=== PATIENT | female | born 1965 | race Caucasian/White ===

== ENCOUNTER 2016-12-06 00:01 | Emergency (ER) | payer OTHER ==
[~2016-12-06] VITALS: Ht 162.6 cm; Wt 92.8 kg
[~2016-12-06 00:01] MED LIST: CYAN10004 PO; DOCU100C31 PO; FERR325T51 PO; GLIP5TAB3 PO; LEVO200T PO; LISI5TAB PO; METF1000 PO; METR1GEL3 TOP; VALA500T60 PO
[2016-12-06 00:08] VITALS: Ht 162.6 cm; Wt 92.8 kg
--- NOTE | 2016-12-06 00:34 | EMERGENCY ROOM VISIT NOTE ---
History Report prepared by Alicia: Saumya Moses Under the Supervision of: Dr. Lei Gaspar D.O. First contact with patient: 00:14 Chief Complaint: ILLNESS Stated Complaint: LIGHT HEAD,UPPER BACK PAIN,SOB,ARM PAIN History of Present Illness The patient is a 51 year old female who presents to the Emergency Room with complaints of intermittent chest pain for the past two days. Yesterday her pain felt like a pressure in her chest. Today her pain has moved into her midback and radiates up to her shoulders and neck. She states, "It feels like something is just sitting there on my shoulders." She is currently experiencing this pain in her back and rates it as a 5/10 in severity. The patient also reports shortness of breath that is worse with bending over or exertion. She notes lightheadedness and right arm pain. She has never experienced symptoms like this before. She denies any personal history of DE. She had a stress test about 2 years ago that was normal. The patient travels to [place] once a month and last made this trip on 11/27/16. Source of History: patient Onset: 2 days ago Position: chest Symptom Intensity: 5/10 Quality: pressure Timing: intermittent Modifying Factors (Worsening): exertion, other (bending over) Associated Symptoms: + SOB, + back pain, + neck pain Note: Pt notes lightheadedness and right arm pain. Review of Systems See HPI for pertinent positives & negatives. A total of 10 systems reviewed and were otherwise negative. Past Medical & Surgical Medical Problems: (1) Diabetes (2) Hypertension Surgical Problems: (1) History of delivery (2) History of thyroidectomy Family History Diabetes mellitus Heart disease Hypertension Seizures Social History Smoking Status: Current Every Day Smoker Alcohol Use: none Marital Status: single Housing Status: lives alone Occupation Status: employed Current/Historical Medications Scheduled Aspirin (Aspirin Ec), 81 MG PO DAILY Glipizide (Glucotrol), 10 MG PO DAILY Levothyroxine Sodium (Synthroid), 200 MCG PO DAILY Lisinopril (Prinivil), 10 MG PO DAILY Metformin Hcl (Glucophage), 1,000 MG PO BIDM Triamcinolone Acet (Triamcinolone Acetonide), 1 APPLN TOP 3XWK Allergies Coded Allergies: No Known Allergies (Unverified , 12/06/16) Physical Exam Vital Signs Date Time Temp Pulse Resp B/P Pulse Ox O2 Delivery O2 Flow Rate FiO2 12/06/16 03:37 36.5 65 16 157/69 98 12/06/16 03:09 65 16 157/69 98 Room Air 12/06/16 01:14 66 16 140/75 98 Room Air 12/06/16 00:38 72 12/06/16 00:08 36.5 82 20 174/62 100 Room Air Physical Exam GENERAL: Patient is awake, alert, and in no acute distress. Patient is resting comfortably and showing no signs of anxiety EYES: The conjunctivae are clear. The pupils are round and reactive. EARS, NOSE, MOUTH AND THROAT: The nose is without any evidence of any deformity. Mucous membranes are moist tongue is midline NECK: The neck is nontender and supple. RESPIRATORY: Normal respiratory effort is noted there is no evidence of wheezing rhonchi or rales CARDIOVASCULAR: Regular rate and rhythm noted there no murmurs rubs or gallops normal S1 normal S2 GASTROINTESTINAL: The abdomen is mildly distended but soft. Bowel sounds are present in all quadrants. No specific guarding or rigidity appreciated. MUSCULOSKELETAL/EXTREMITIES: There is no evidence of gross deformity full range of motion is noted in the hips and shoulders SKIN: There is no obvious evidence of any rash. There are no petechiae, pallor or cyanosis noted. NEUROLOGIC: Patient is awake alert and oriented x3 Medical Decision & Procedures ER Provider Diagnostic Interpretation: Chest x-ray as interpreted by myself reveals cardiomegaly, no free air, no acute disease, no change from 06/29/15. CT angiography of the chest and abdomen was obtained for dissection study. The report was reviewed. Preliminary Findings Only See Final Report For Complete Findings CTA CHEST: No evidence of an embolus. No thoracic aortic dissection or aneurysm. No pericolonic abnormality suggestive suggestive of inflammatory/infectious process. Multiple pulmonary nodules seen throughout both lungs, largest within the right middle lobe measuring up to 6 mm (5-34). Correlation with prior imaging to demonstrate stability, otherwise follow-up according to Fleischner Society criteria is recommended. No pleural effusion or pneumothorax. No significant adenopathy. The heart and pericardium are unremarkable. No acute osseous abnormality. CTA ABDOMEN & PELVIS: No thoracic aortic dissection or aneurysm. The liver, gallbladder, spleen, pancreas, and adrenal glands are unremarkable. The kidneys, ureters and urinary bladder are unremarkable. The uterus and adnexa are unremarkable. The appendix is unremarkable. Noninflamed colonic diverticulosis. No free fluid. No free air. No acute osseous abnormality. Radiologist: Nuno Logan MD Study ready at 02:36 and initial results transmitted at 02:51 Laboratory Results 12/06/16 00:50 Red Blood Count 3.98, Mean Corpuscular Volume 83.7, Mean Corpuscular Hemoglobin 28.1, Mean Corpuscular Hemoglobin Concent 33.6, Mean Platelet Volume 10.5, Neutrophils (%) (Auto) 45.7, Lymphocytes (%) (Auto) 44.0, Monocytes (%) (Auto) 5.5, Eosinophils (%) (Auto) 4.3, Basophils (%) (Auto) 0.4, Neutrophils # (Auto) 3.79, Lymphocytes # (Auto) 3.66, Monocytes # (Auto) 0.46, Eosinophils # (Auto) 0.36, Basophils # (Auto) 0.03 12/06/16 00:50 Test 12/06/16 00:50 12/06/16 01:15 White Blood Count 8.31 K/uL (4.8-10.8) Red Blood Count 3.98 M/uL (4.2-5.4) Hemoglobin 11.2 g/dL (12.0-16.0) Hematocrit 33.3 % (37-47) Mean Corpuscular Volume 83.7 fL (80-100) Mean Corpuscular Hemoglobin 28.1 pg (25-34) Mean Corpuscular Hemoglobin Concent 33.6 g/dl (32-36) Platelet Count 430 K/uL (130-400) Mean Platelet Volume 10.5 fL (7.4-10.4) Neutrophils (%) (Auto) 45.7 % Lymphocytes (%) (Auto) 44.0 % Monocytes (%) (Auto) 5.5 % Eosinophils (%) (Auto) 4.3 % Basophils (%) (Auto) 0.4 % Neutrophils # (Auto) 3.79 K/uL (1.4-6.5) Lymphocytes # (Auto) 3.66 K/uL (1.2-3.4) Monocytes # (Auto) 0.46 K/uL (0.11-0.59) Eosinophils # (Auto) 0.36 K/uL (0-0.5) Basophils # (Auto) 0.03 K/uL (0-0.2) RDW Standard Deviation 49.0 fL (36.4-46.3) RDW Coefficient of Variation 16.0 % (11.5-14.5) Immature Granulocyte % (Auto) 0.1 % Immature Granulocyte # (Auto) 0.01 K/uL (0.00-0.02) Anion Gap 10.0 mmol/L (3-11) Est Creatinine Clear Calc Drug Dose 75.8 ml/min Estimated GFR () 78.4 Estimated GFR (Non- 67.6 BUN/Creatinine Ratio 12.5 (10-20) Calcium Level 8.8 mg/dl (8.5-10.1) Total Bilirubin 0.2 mg/dl (0.2-1) Direct Bilirubin < 0.1 mg/dl (0-0.2) Aspartate Amino Transf (AST/SGOT) 11 U/L (15-37) Alanine Aminotransferase (ALT/SGPT) 24 U/L (12-78) Alkaline Phosphatase 90 U/L (45-117) Total Creatine Kinase 62 U/L (26-192) Creatine Kinase MB < 0.5 ng/ml (0.5-3.6) Creatine Kinase MB Ratio (0-3.0) Troponin I < 0.015 ng/ml (0-0.045) Total Protein 7.3 gm/dl (6.4-8.2) Albumin 3.7 gm/dl (3.4-5.0) Lipase 186 U/L (73-393) Urine Color YELLOW Urine Appearance CLEAR (CLEAR) Urine pH 5.0 (4.5-7.5) Urine Specific [place] 1.030 (1.000-1.030) Urine Protein NEG (NEG) Urine Glucose (UA) 3+ (NEG) Urine Ketones NEG (NEG) Urine Occult Blood NEG (NEG) Urine Nitrite NEG (NEG) Urine Bilirubin NEG (NEG) Urine Urobilinogen NEG (NEG) Urine Leukocyte Esterase NEG (NEG) Laboratory results per my review. Medications Administered Medications (Trade) Dose Ordered Sig/Sunny Route Start Time Stop Time Status Last Admin Dose Admin Ketorolac Tromethamine (Toradol Inj) 30 mg NOW STAT IV 12/06/16 03:12 12/06/16 03:13 DC 12/06/16 03:18 30 MG Oxycodone HCl (Roxicodone Immediate Rel 5MG Home Pack) 1 homepack UD ONCE PO 12/06/16 03:15 12/06/16 03:16 DC 12/06/16 03:18 1 HOMEPACK ECG Indication: chest pain Rate (beats per minute): 70 Rhythm: normal sinus Findings: no acute ischemic change, no ectopy Comparison ECG Date: 06/29/15 Change: no significant change ED Course 0014: The patient was evaluated in room B6. A complete history and physical examination were performed. 0147: I reassessed the patient at this time. She is doing well. 0311: I reassessed the patient at this time. She is feeling better and resting comfortably. I discussed the results and treatment plan with the patient. I answered all pertaining questions that she had. She expressed understanding and verbalized agreement. The patient will be discharged home. 0312: Toradol 30 mg IV 0315: Oxycodone HCl 1 homepack PO Medical Decision Differential diagnosis: Etiologies such as cardiac ischemia, aortic dissection, pulmonary embolism, pneumonia, pneumothorax, musculoskeletal, infections, pericarditis, myocarditis , esophageal rupture, gastrointestinal, as well as others were entertained. Nursing notes reviewed. Patient's previous electronic medical records reviewed. The patient is a 51-year-old female who presented to the emergency department for an evaluation of back pain. The patient noticed back pain which appeared to be musculoskeletal. It went from her mid back up into her neck but she also complained of some chest discomfort. The patient has had ongoing symptoms but presented to the emergency department this evening. Her EKG did not reveal any acute changes from previous and her cardiac biomarkers were negative despite having ongoing pain for some time. I was concerned that the patient was describing condition could be consistent with dissection. She has a history of hypertension. A dissection study was ordered but only showed signs of pulmonary nodules. There is no definite signs of dissection. The patient was treated with IV pain medication in the emergency department. She was feeling much better on subsequent reevaluation. She was encouraged to rest and avoid any strenuous activity. She was encouraged to call her primary care physician to schedule a follow-up appointment. She was also encouraged to discuss the possibility that she may require further studies such as an echocardiogram or a stress test through her family doctor but she was also encouraged to return to the emergency department immediately if symptoms change worsen or the need arises. I discussed the patient's CAT scan report with her which included incidental findings of pulmonary nodules. She states that she has known pulmonary nodules and agreed to follow-up with her family doctor for these. Impression Primary Impression: Back pain Additional Impressions: Anterior chest wall pain Pulmonary nodule Scribe Attestation The scribe's documentation has been prepared under my direction and personally reviewed by me in its entirety. I confirm that the note above accurately reflects all work, treatment, procedures, and medical decision making performed by me. Departure Information Dispostion Home / Self-Care Referrals Debora Albrecht D.O. (PCP) Forms HOME CARE DOCUMENTATION FORM, IMPORTANT VISIT INFORMATION, WORK / SCHOOL INSTRUCTIONS Patient Instructions ED Chest Pain Noncardiac Ch, [facility] Additional Instructions Continue all medications as prescribed. Rest and avoid any strenuous activity. Call your family Dr. carrasco to schedule a follow-up appointment. Return to the emergency department if symptoms change worsen or the need arises. He will also asked to follow-up with your doctor concerning the findings noted on CAT scan this evening regarding the pulmonary nodule. Continue taking Motrin and Tylenol as directed for pain. Problem Qualifiers Primary Impression: Back pain Back pain location: thoracic back pain Chronicity: acute Back pain laterality: unspecified Qualified Codes: M54.6 - Pain in thoracic spine
[2016-12-06 01:02] LABS: BASO % 0.4 %; BASO ABS # 0.03 K/uL (0-0.2); COMPLETE YES; EOS % 4.3 %; HEMATOCRIT 33.3 % (37-47); IG% 0.1 %; LYMPH ABS # 3.66 K/uL (1.2-3.4); MEAN CELL VOLUME 83.7 fL (80-100); MEAN CORPUSCULAR HEMOGLOBIN 28.1 pg (25-34); MEAN CORPUSCULAR HGB CONC 33.6 g/dl (32-36); MEAN PLATELET VOLUME 10.5 fL (7.4-10.4); MONO % 5.5 %; NEUT % 45.7 %; PLATELET COUNT 430 K/uL (130-400); RED BLOOD COUNT 3.98 M/uL (4.2-5.4); WHITE BLOOD COUNT 8.31 K/uL (4.8-10.8)
[2016-12-06 01:23] LABS: ALT/SGPT 24 U/L (12-78); AST/SGOT 11 U/L (15-37); BLOOD UREA NITROGEN 12 mg/dl (7-18); BUN/CREATININE RATIO 12.5 (10-20); CALCIUM 8.8 mg/dl (8.5-10.1); CARBON DIOXIDE 24 mmol/L (21-32); CHLORIDE 105 mmol/L (98-107); CREATININE 0.97 mg/dl (0.60-1.20); GLUCOSE 228 mg/dl (70-99); POTASSIUM 3.8 mmol/L (3.5-5.1); SODIUM 139 mmol/L (136-145)
[2016-12-06 01:28] LABS: ALKALINE PHOSPHATASE 90 U/L (45-117)
[2016-12-06 01:37] LABS: URINE APPEARANCE CLEAR (CLEAR); URINE BILIRUBIN NEG (NEG); URINE COLOR YELLOW; URINE NITRITE NEG (NEG); UROBILINOGEN NEG (NEG)
[2016-12-06] MEDS ORDERED: TRMO115 TOP (01:45)
[2016-12-06] MEDS ORDERED: OPTIRAY 320 IV PRN (01:45)
[2016-12-06] MEDS ORDERED: ASPI81TA28 PO (01:46)
[2016-12-06 01:55] LABS: MANUAL MICROSCOPIC REQUIRED? NO; REVIEW REQ? NO
[2016-12-06] MEDS ORDERED: KETOROLAC TROMETHAMINE 30 MG/ML VIAL IV STA (03:12)
[2016-12-06] MEDS ORDERED: OXYCODONE IR HOME PACK PO ONE (03:15)
[2016-12-06 03:37] VITALS: BP 157/69; PULSE 65; TEMP 36.5; O2SAT 98
--- NOTE | 2016-12-06 07:55 | DIAGNOSTIC IMAGING REPORT ---
CHEST, ABDOMEN, and PELVIS CTA for AORTIC DISSECTION CT DOSE: 2480.65 mGy.cm HISTORY: Pain in both shoulders and back. Assess for aortic dissection. TECHNIQUE: Multiaxial CT images of the chest, abdomen, and pelvis were performed both before and after the intravenous administration of contrast to evaluate the aorta. Maximal intensity projection images were also obtained. COMPARISON STUDY: Abdomen and pelvis CT 11/08/2014. FINDINGS: No evidence for an intramural hematoma within the aorta on noncontrast imaging. The aorta is normal in course and caliber with no evidence for dissection. No pleural or pericardial effusions. The heart is normal in size. The central pulmonary arteries appear patent. The celiac, mesenteric, and renal arteries appear patent. The iliac arteries are normal in course and caliber. No pneumothorax. The central airways are patent. Linear densities at the left lower lobe posteriorly favor scarring or subsegmental atelectasis. Multiple scattered nodules seen within the right lung which are subcentimeter in size. Dominant nodule within the right middle lobe on images 30 and 32 of 100 measuring 5 mm. However, these are stable compared to a 11/08/[address] Therefore, these nodules are considered to be benign. There is an additional 3 mm nodule within the right upper lobe which was not included on the prior study. This is seen on image 21. No suspicious lytic or blastic osseous lesions. No mediastinal or hilar lymphadenopathy. The liver, gallbladder, spleen, adrenal glands, and pancreas are unremarkable. Moderate bilateral cortical renal thinning/lobulation. No hydronephrosis. The bladder, uterus, bilateral ovaries are unremarkable. No pelvic free fluid. No bowel wall thickening or obstruction. IMPRESSION: 1. No evidence for aortic dissection. 2. The central pulmonary arteries are patent. 3. No bowel wall thickening or obstruction. 4. Subcentimeter nodules within the right lung. The majority of these were seen on the November 08, [address] and are therefore considered to be benign. A single 3 mm nodule within the right upper lobe was not included but also likely represents a benign nodule given the stability of the additional nodules. Electronically signed by: Claude Lai M.D. 12/06/2016 7:53 AM Dictated Date/Time: 12/06/2016 7:43 AM
--- NOTE | 2016-12-06 08:07 | DIAGNOSTIC IMAGING REPORT ---
CHEST ONE VIEW PORTABLE HISTORY: Generalized abdominal pain. Back pain. Shoulder pain. COMPARISON: Chest 06/29/2015. FINDINGS: The lungs are clear. Cardiac silhouette is normal in size. No pleural effusions. No pneumothorax. IMPRESSION: No acute process. Electronically signed by: Claude Lai M.D. 12/06/2016 8:05 AM Dictated Date/Time: 12/06/2016 8:04 AM
== END 2016-12-06 03:39 | disposition home or self-care (01) ==
LOC: C.EDB 00:04
DX: M54.6 Pain in thoracic spine (principal); R07.89 Other chest pain; R91.1 Solitary pulmonary nodule; E11.9 Type 2 diabetes mellitus without complications; I10 Essential (primary) hypertension; F17.210 Nicotine dependence, cigarettes, uncomplicated; Z79.82 Long term (current) use of aspirin; Z79.899 Other long term (current) drug therapy

== ENCOUNTER 2017-04-05 20:59 | Emergency (ER) | payer SELFPAY ==
[~2017-04-05] VITALS: Ht 162.6 cm; Wt 84.9 kg
[~2017-04-05 20:59] MED LIST changes: +ASPI81TA28 PO; -CYAN10004 PO; -DOCU100C31 PO; -FERR325T51 PO; -METR1GEL3 TOP; +TRMO115 TOP; -VALA500T60 PO
[2017-04-05 21:06] VITALS: TEMP 36.6; Ht 162.6 cm; Wt 84.9 kg
[2017-04-05] MEDS ORDERED: KETOROLAC TROMETHAMINE 30 MG/ML VIAL IV STA (21:53)
[2017-04-05] MEDS ORDERED: SODIUM CHLORIDE 0.9% 1000ML 1,000 ML IV ONE (22:00)
[2017-04-05 22:04] VITALS: O2SAT 98
[2017-04-05 22:31] LABS: BASO % 0.3 %; BASO ABS # 0.03 K/uL (0-0.2); COMPLETE YES; EOS % 2.7 %; HEMATOCRIT 34.9 % (37-47); IG% 0.2 %; LYMPH % 32.5 %; LYMPH ABS # 3.35 K/uL (1.2-3.4); MEAN CELL VOLUME 85.3 fL (80-100); MEAN CORPUSCULAR HEMOGLOBIN 28.6 pg (25-34); MEAN CORPUSCULAR HGB CONC 33.5 g/dl (32-36); MEAN PLATELET VOLUME 10.5 fL (7.4-10.4); MONO % 5.8 %; NEUT % 58.5 %; PLATELET COUNT 432 K/uL (130-400); RED BLOOD COUNT 4.09 M/uL (4.2-5.4); WHITE BLOOD COUNT 10.31 K/uL (4.8-10.8)
[2017-04-05 22:31] LABS: URINE APPEARANCE CLEAR (CLEAR); URINE BILIRUBIN NEG (NEG); URINE COLOR YELLOW; URINE NITRITE NEG (NEG); UROBILINOGEN NEG (NEG); ZZUR CULT IF INDIC CLEAN CATCH NO
[2017-04-05 22:32] LABS: MANUAL MICROSCOPIC REQUIRED? NO; REVIEW REQ? NO
--- NOTE | 2017-04-05 22:51 | DIAGNOSTIC IMAGING REPORT ---
CHEST 2 VIEWS ROUTINE CLINICAL HISTORY: CP/SOB dyspnea COMPARISON STUDY: 12/06/2016 FINDINGS: The bones soft tissues and hemidiaphragms are normal. The cardiomediastinal silhouette is normal. The lungs are clear. The pulmonary vasculature is normal. IMPRESSION: Negative chest. Electronically signed by: Mekhi Harp M.D. 04/05/2017 10:50 PM Dictated Date/Time: 04/05/2017 10:49 PM
[2017-04-05 22:55] LABS: ALB/GLOB RATIO 0.9 (0.9-2); BUN/CREATININE RATIO 15.4 (10-20); POTASSIUM 4.2 mmol/L (3.5-5.1)
[2017-04-05 23:30] VITALS: BP 141/69; PULSE 73; O2SAT 99
[2017-04-05] MEDS ORDERED: NORCO 5/325MG HOME PACK PO ONE (23:30)
--- NOTE | 2017-04-06 01:06 | EMERGENCY ROOM VISIT NOTE ---
History First contact with patient: 21:46 Chief Complaint: BACK PAIN Stated Complaint: LEFT SIDE PAIN, SOMETIMES RADIATES TO BOTH SIDES History of Present Illness The patient is a 51 year old female who presents to the Emergency Room with complaints of left-sided neck and back pain for the past 3 or 4 days. The patient states that there is occasional radiation across her back to both her left and right arms. She does have a history of similar symptoms in the past, but she states that she does have some episodes where she feels short of breath. The patient has not had fever or chills. 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 The patient is diabetic, but states that her sugar has been good. Her symptoms do worsen with certain positions and range of motion. She has difficulty sleeping because she cannot find a comfortable position. She rates her current discomfort a 6/10 and has not taken anything [id number] with relief of symptoms. Review of Systems More than 10 systems were reviewed and otherwise negative with the exception of history of present illness. Past Medical/Surgical History Medical Problems: (1) Diabetes (2) Hypertension Surgical Problems: (1) History of delivery (2) History of thyroidectomy Family History Diabetes mellitus Heart disease Hypertension Seizures Social History Smoking Status: Current Every Day Smoker Alcohol Use: none Marital Status: single Housing Status: lives alone Occupation Status: employed Current/Historical Medications Scheduled Aspirin (Aspirin Ec), 81 MG PO DAILY Glipizide (Glucotrol), 10 MG PO DAILY Levothyroxine Sodium (Synthroid), 200 MCG PO DAILY Lisinopril (Prinivil), 10 MG PO DAILY Metformin Hcl (Glucophage), 1,000 MG PO BIDM Triamcinolone Acet (Triamcinolone Acetonide), 1 APPLN TOP 3XWK Allergies Coded Allergies: No Known Allergies (Unverified , 12/06/16) Physical Exam Vital Signs Date Time Temp Pulse Resp B/P Pulse Ox O2 Delivery O2 Flow Rate FiO2 04/05/17 23:30 73 141/69 99 04/05/17 22:24 77 16 99 04/05/17 22:19 77 22 98 04/05/17 22:15 79 04/05/17 22:14 81 19 04/05/17 22:07 151/96 04/05/17 22:04 98 Room Air 04/05/17 21:06 36.6 89 18 170/77 98 Room Air Physical Exam VITALS: Vitals are noted on the nurse's note and reviewed by myself. Vital signs stable. GENERAL: Well-developed, well-nourished, white female, who is in no acute distress and resting comfortably. Patient is cooperative with the examination. HEAD: Normocephalic atraumatic. NECK: Supple without nuchal rigidity. No lymphadenopathy. No thyromegaly. Cervical spine is nontender. Patient is with full range of motion of the neck. Rotation to the right does exacerbate tenderness along the left side paracervical musculature HEART: Regular rate and rhythm without murmurs gallops or rubs. LUNGS: Clear to auscultation bilaterally without wheezes, rales or rhonchi. No retractions or accessory muscle use. ABDOMEN: Positive normal bowel sounds x 4. Soft, nontender, without masses or organomegaly. No guarding or rebound tenderness. MUSCULOSKELETAL: No muscle atrophy, erythema, or edema noted. Full range of motion without joint tenderness in all extremities. No tenderness to palpation. Normal gait. Strength 5/5 throughout. NEURO: Patient was alert and oriented to person place and time. CN II through XII grossly intact. Deep tendon reflexes 2+ throughout. Medical Decision & Procedures ER Provider Diagnostic Interpretation: CHEST 2 VIEWS ROUTINE CLINICAL HISTORY: CP/SOB dyspnea COMPARISON STUDY: 12/06/2016 FINDINGS: The bones soft tissues and hemidiaphragms are normal. The cardiomediastinal silhouette is normal. The lungs are clear. The pulmonary vasculature is normal. IMPRESSION: Negative chest. Laboratory Results 04/05/17 22:05 Red Blood Count 4.09, Mean Corpuscular Volume 85.3, Mean Corpuscular Hemoglobin 28.6, Mean Corpuscular Hemoglobin Concent 33.5, Mean Platelet Volume 10.5, Neutrophils (%) (Auto) 58.5, Lymphocytes (%) (Auto) 32.5, Monocytes (%) (Auto) 5.8, Eosinophils (%) (Auto) 2.7, Basophils (%) (Auto) 0.3, Neutrophils # (Auto) 6.03, Lymphocytes # (Auto) 3.35, Monocytes # (Auto) 0.60, Eosinophils # (Auto) 0.28, Basophils # (Auto) 0.03 04/05/17 22:05 Test 04/05/17 22:00 04/05/17 22:05 04/05/17 22:23 Urine Color YELLOW Urine Appearance CLEAR (CLEAR) Urine pH 5.0 (4.5-7.5) Urine Specific [place] 1.030 (1.000-1.030) Urine Protein NEG (NEG) Urine Glucose (UA) 3+ (NEG) Urine Ketones TRACE (NEG) Urine Occult Blood NEG (NEG) Urine Nitrite NEG (NEG) Urine Bilirubin NEG (NEG) Urine Urobilinogen NEG (NEG) Urine Leukocyte Esterase NEG (NEG) White Blood Count 10.31 K/uL (4.8-10.8) Red Blood Count 4.09 M/uL (4.2-5.4) Hemoglobin 11.7 g/dL (12.0-16.0) Hematocrit 34.9 % (37-47) Mean Corpuscular Volume 85.3 fL (80-100) Mean Corpuscular Hemoglobin 28.6 pg (25-34) Mean Corpuscular Hemoglobin Concent 33.5 g/dl (32-36) Platelet Count 432 K/uL (130-400) Mean Platelet Volume 10.5 fL (7.4-10.4) Neutrophils (%) (Auto) 58.5 % Lymphocytes (%) (Auto) 32.5 % Monocytes (%) (Auto) 5.8 % Eosinophils (%) (Auto) 2.7 % Basophils (%) (Auto) 0.3 % Neutrophils # (Auto) 6.03 K/uL (1.4-6.5) Lymphocytes # (Auto) 3.35 K/uL (1.2-3.4) Monocytes # (Auto) 0.60 K/uL (0.11-0.59) Eosinophils # (Auto) 0.28 K/uL (0-0.5) Basophils # (Auto) 0.03 K/uL (0-0.2) RDW Standard Deviation 46.2 fL (36.4-46.3) RDW Coefficient of Variation 14.9 % (11.5-14.5) Immature Granulocyte % (Auto) 0.2 % Immature Granulocyte # (Auto) 0.02 K/uL (0.00-0.02) Anion Gap 9.0 mmol/L (3-11) Est Creatinine Clear Calc Drug Dose 70.2 ml/min Estimated GFR () 75.5 Estimated GFR (Non- 65.2 BUN/Creatinine Ratio 15.4 (10-20) Calcium Level 9.0 mg/dl (8.5-10.1) Total Bilirubin 0.2 mg/dl (0.2-1) Aspartate Amino Transf (AST/SGOT) 19 U/L (15-37) Alanine Aminotransferase (ALT/SGPT) 30 U/L (12-78) Alkaline Phosphatase 99 U/L (45-117) Total Protein 7.4 gm/dl (6.4-8.2) Albumin 3.4 gm/dl (3.4-5.0) Globulin 4.0 gm/dl (2.5-4.0) Albumin/Globulin Ratio 0.9 (0.9-2) Lipase 187 U/L (73-393) Chemistry Specimen Hemolysis Bedside D-Dimer 261 ng/mlFEU (0-450) Bedside Troponin I 0.000 ng/ml (0-0.045) Medications Administered Medications (Trade) Dose Ordered Sig/Sunny Route Start Time Stop Time Status Last Admin Dose Admin Sodium Chloride (Nss 1000ml) 1,000 ml @ 999 mls/hr Q1H1M ONCE IV 04/05/17 22:00 04/05/17 23:00 DC 04/05/17 22:00 999 MLS/HR Ketorolac Tromethamine (Toradol Inj) 30 mg NOW STAT IV 04/05/17 21:53 04/05/17 21:55 DC 04/05/17 21:53 30 MG ED Course Physical exam and history were performed. Nursing notes and EMR were reviewed. Patient appears to have slowly worsening left-sided neck and back pain over the past several days. The patient has had this off and on for several years, and her symptoms are worsened with certain position and range of motion. The patient is diabetic, and states that she does have some occasional episodes where this takes her breath away. She is concerned that her symptoms could be cardiac. IV access was established and labs were obtained. EKG was normal sinus rhythm at 73 beats per minute without ST elevation or ischemia. Chest x- ray was performed. The patient was hydrated and medicated as above. The patient blood work is as above and was reviewed. She does not have a significantly elevated white blood cell count, gross anemia, bandemia, or significant electrolyte imbalance. Troponin and d-dimer 1 are both negative. Chest x-ray is without acute findings. The patient remained in stable rhythm on the secured entrance monitor. Overall the patient appears stable for discharge home. Her symptoms do not appear to represent a cardiopulmonary event. I suspect that she is experiencing musculoskeletal discomfort. I will give the patient a home pack of Vicodin for pain control. She is to follow with her primary care physician for further care and management. She was otherwise invited back to the ER with any worsening, or concerning symptoms. The chart was completed utilizing [employer] Speech Voice Recognition Software. Grammatical errors, random word insertions, pronoun errors, and incomplete sentences are an occasional consequence of this system due to software limitations, ambient noise, and hardware issues. Any formal questions or concerns about the content, text, or information contained within the body of this dictation should be directly addressed to the provider for clarification. . Medical Decision Differential diagnosis includes, but is not limited to: Myocardial infarction, dysrhythmia, pericarditis, pneumothorax, aortic aneurysm/dissection, DVT/PE, anxiety, GERD, PUD, electrolyte imbalance, thyroid disorder, pneumonia, bronchitis, pancreatitis, and others Impression Primary Impression: Chronic neck and back pain Departure Information Referrals Debora Albrecht D.O. (PCP) Patient Instructions [facility]
== END 2017-04-05 23:31 | disposition home or self-care (01) ==
LOC: C.EDB 21:00
DX: M54.2 Cervicalgia (principal); M54.9 Dorsalgia, unspecified; G89.29 Other chronic pain; E11.9 Type 2 diabetes mellitus without complications; I10 Essential (primary) hypertension; F17.200 Nicotine dependence, unspecified, uncomplicated; Z98.890 Other specified postprocedural states; Z79.82 Long term (current) use of aspirin; Z79.84 Long term (current) use of oral hypoglycemic drugs; Z79.899 Other long term (current) drug therapy; Z83.3 Family history of diabetes mellitus; Z82.49 Family history of ischemic heart disease and other diseases of the circulatory system; Z82.0 Family history of epilepsy and other diseases of the nervous system

== ENCOUNTER 2017-10-01 00:03 | Emergency (ER) | payer OTHER ==
[~2017-10-01] VITALS: Ht 162.6 cm; Wt 94.7 kg
[2017-10-01 00:06] VITALS: TEMP 36.6; Ht 162.6 cm; Wt 94.7 kg
[2017-10-01] MEDS ORDERED: ONDANSETRON INJ 2 MG/ML 2 ML VIAL IV STA (00:20)
[2017-10-01] MEDS ORDERED: LISI10TA PO (00:26)
[2017-10-01] MEDS ORDERED: GLIP-199 PO (00:27)
[2017-10-01] MEDS ORDERED: NAPR-1169 PO (00:28)
--- NOTE | 2017-10-01 00:30 | EMERGENCY ROOM VISIT NOTE ---
History Report prepared by Alicia: Beulah An Under the Supervision of: Dr. Yasmine Cruz D.O. First contact with patient: 00:12 Chief Complaint: NAUSEA Stated Complaint: NAUSEA,RT NECK,SHOULDER,BACK AND SIDE PAIN Nursing Triage Summary: Pain in RUQ, right upper back and shoulder. ABD pain has been for approx 1 month. Nausea started last week. Was seen by PCP today was told it was possibly gal stones and was told to come to ER if pain continued. States "I'm getting a lot of gas as well" History of Present Illness The patient is a 52 year old female who presents to the Emergency Room with complaints of constant right sided back pain beginning 1 month ago. The patient states that she has been having pain in her right upper back that radiates into her abdomen. She notes that her pain has been constant but she has not had insurance until she went to see her PCP today. After being told that she may have gallstones, she was told to come in to the ED. The patient complains of nausea that began 1 week ago, gassiness, and difficulty sleeping. She notes that she is also having sharp pain with movement. She denies any vomiting, change in bowel movements, fever, and chills. She notes that eating slightly worsens her pain. Source of History: patient Onset: 1 month ago Position: abdomen Quality: sharp Timing: constant Modifying Factors (Worsening): eating, movement Associated Symptoms: + nausea, + abdominal pain, No fevers, No chills, No vomiting Review of Systems See HPI for pertinent positives & negatives. A total of 10 systems reviewed and were otherwise negative. Past Medical & Surgical Medical Problems: (1) Diabetes (2) Hypertension Surgical Problems: (1) History of delivery (2) History of thyroidectomy Family History Diabetes mellitus Heart disease Hypertension Seizures Social History Smoking Status: Current Every Day Smoker Alcohol Use: none Marital Status: single Housing Status: lives alone Occupation Status: employed Current/Historical Medications Scheduled Aspirin (Aspirin Ec), 162 MG PO DAILY Glipizide (Glipizide Er), 1 TAB PO DAILY Levothyroxine Sodium (Synthroid), 200 MCG PO DAILY Lisinopril (Prinivil), 10 MG PO DAILY Metformin Hcl (Glucophage), 1,000 MG PO BIDM Naproxen (Naprosyn), 500 MG PO BID Allergies Coded Allergies: No Known Allergies (Unverified , 10/01/17) Physical Exam Vital Signs Date Time Temp Pulse Resp B/P (MAP) Pulse Ox O2 Delivery O2 Flow Rate FiO2 10/01/17 04:22 78 18 142/77 99 10/01/17 03:00 81 18 155/83 98 Room Air 10/01/17 01:48 69 18 119/73 98 Room Air 10/01/17 00:34 95 10/01/17 00:06 36.6 79 18 177/82 99 Room Air Physical Exam GENERAL: alert, well appearing, well nourished, no distress, non-toxic, obese EYE EXAM: normal conjunctiva, PERRL and EOM's grossly intact OROPHARYNX: no exudate, no erythema, lips, buccal mucosa, and tongue normal and mucous membranes are dry NECK: supple, no nuchal rigidity, no adenopathy, non-tender LUNGS: Clear to auscultation. Normal chest wall mechanics, no w/r/r HEART: no murmurs, S1 normal and S2 normal ABDOMEN: abdomen soft, RUQ tenderness, normo-active bowel sounds, no masses, no rebound or guarding. BACK: Back is symmetrical on inspection and there is no deformity, no midline tenderness, right flank pain, right sided CVA tenderness. SKIN: no rashes and no bruising UPPER EXTREMITIES: upper extremities are grossly normal. Nml ROM and pulses. LOWER EXTREMITIES: No pitting edema. Nml ROM and pulses. NEURO EXAM: Normal sensorium, cranial nerves II-XII grossly intact, normal speech, no gross weakness of arms, no gross weakness of legs. Medical Decision & Procedures ER Provider Diagnostic Interpretation: Ultrasound right upper quadrant: Pancreas is not visualized due to overlying bowel gas. Enlarged liver measuring 18.6 cm. Increased echogenicity is compatible with fatty infiltration. Patent main portal vein with normal direction of flow. Under distended gallbladder, related to recent meal. No stones or sludge. No gallbladder wall thickening or pericholecystic fluid. Normal common bile duct measuring 2.8 mm. Normal-appearing right kidney without hydronephrosis or stone. Radiologist: Maryan Cabral M.D. CT abdomen and pelvis with IV contrast: Comparison: Right upper quadrant ultrasound 10/01/2015, 12:50 4 AM Comparison: CTA chest, abdomen, pelvis, 12/06/2016 No acute intra-abdominal or pelvic process. Normal appendix. Stable appearance of lobulated bilateral kidneys without hydronephrosis. Small and large bowel loops appear unremarkable. No evidence of bowel obstruction or acute inflammatory process. Mild diffuse fatty infiltration of the liver. Stable mild hepatomegaly. Small involuting cyst/follicle within the left ovary. No pelvic free fluid or fluid collections. Stable nodular density in the right middle lobe at the edge of field of view. Stable tiny subpleural nodule in the right lower lobe. Mild dependent atelectasis in the right. Decompressed bladder. Radiologist: Maryan Cabral M.D. Laboratory Results 10/01/17 00:40 Red Blood Count 4.01, Mean Corpuscular Volume 83.5, Mean Corpuscular Hemoglobin 27.9, Mean Corpuscular Hemoglobin Concent 33.4, Mean Platelet Volume 10.6, Neutrophils (%) (Auto) 46.7, Lymphocytes (%) (Auto) 41.0, Monocytes (%) (Auto) 6.3, Eosinophils (%) (Auto) 5.4, Basophils (%) (Auto) 0.5, Neutrophils # (Auto) 4.65, Lymphocytes # (Auto) 4.09, Monocytes # (Auto) 0.63, Eosinophils # (Auto) 0.54, Basophils # (Auto) 0.05 10/01/17 00:40 Test 10/01/17 00:40 10/01/17 00:55 10/01/17 02:38 10/01/17 03:02 White Blood Count 9.97 K/uL (4.8-10.8) Red Blood Count 4.01 M/uL (4.2-5.4) Hemoglobin 11.2 g/dL (12.0-16.0) Hematocrit 33.5 % (37-47) Mean Corpuscular Volume 83.5 fL (80-100) Mean Corpuscular Hemoglobin 27.9 pg (25-34) Mean Corpuscular Hemoglobin Concent 33.4 g/dl (32-36) Platelet Count 453 K/uL (130-400) Mean Platelet Volume 10.6 fL (7.4-10.4) Neutrophils (%) (Auto) 46.7 % Lymphocytes (%) (Auto) 41.0 % Monocytes (%) (Auto) 6.3 % Eosinophils (%) (Auto) 5.4 % Basophils (%) (Auto) 0.5 % Neutrophils # (Auto) 4.65 K/uL (1.4-6.5) Lymphocytes # (Auto) 4.09 K/uL (1.2-3.4) Monocytes # (Auto) 0.63 K/uL (0.11-0.59) Eosinophils # (Auto) 0.54 K/uL (0-0.5) Basophils # (Auto) 0.05 K/uL (0-0.2) RDW Standard Deviation 53.8 fL (36.4-46.3) RDW Coefficient of Variation 17.4 % (11.5-14.5) Immature Granulocyte % (Auto) 0.1 % Immature Granulocyte # (Auto) 0.01 K/uL (0.00-0.02) Anion Gap 7.0 mmol/L (3-11) Est Creatinine Clear Calc Drug Dose 59.7 ml/min Estimated GFR () 58.4 Estimated GFR (Non- 50.4 BUN/Creatinine Ratio 9.6 (10-20) Lactic Acid Level 2.1 mmol/L (0.4-2.0) Calcium Level 8.6 mg/dl (8.5-10.1) Total Bilirubin 0.2 mg/dl (0.2-1) Aspartate Amino Transf (AST/SGOT) 16 U/L (15-37) Alanine Aminotransferase (ALT/SGPT) 37 U/L (12-78) Alkaline Phosphatase 108 U/L (45-117) Troponin I < 0.015 ng/ml (0-0.045) Total Protein 7.5 gm/dl (6.4-8.2) Albumin 3.6 gm/dl (3.4-5.0) Globulin 3.9 gm/dl (2.5-4.0) Albumin/Globulin Ratio 0.9 (0.9-2) Lipase 334 U/L (73-393) Beta-Hydroxybutyric Acid 0.90 mg/dL (0.2-2.81) Urine Color YELLOW Urine Appearance CLEAR (CLEAR) Urine pH 5.0 (4.5-7.5) Urine Specific [place] 1.035 (1.000-1.030) Urine Protein NEG (NEG) Urine Glucose (UA) 3+ (NEG) Urine Ketones NEG (NEG) Urine Occult Blood NEG (NEG) Urine Nitrite NEG (NEG) Urine Bilirubin NEG (NEG) Urine Urobilinogen NEG (NEG) Urine Leukocyte Esterase NEG (NEG) Bedside Glucose 259 mg/dl (70-90) Bedside Lactic Acid Venous 2.75 mmol/L (0.90-1.70) Laboratory results per my review. Medications Administered Medications (Trade) Dose Ordered Sig/Sunny Route Start Time Stop Time Status Last Admin Dose Admin Ondansetron HCl (Zofran Inj) 4 mg NOW STAT IV 10/01/17 00:20 10/01/17 00:22 DC 10/01/17 00:43 4 MG Acetaminophen 100 ml @ 400 mls/hr NOW STAT IV 10/01/17 01:21 10/01/17 01:35 DC 10/01/17 01:28 400 MLS/HR Lactated Ringer's 1,000 ml @ 999 mls/hr Q1H1M STAT IV 10/01/17 01:23 10/01/17 02:23 DC 10/01/17 01:28 999 MLS/HR Lidocaine (Lidoderm Patch 5%) 1 patch NOW STAT TD 10/01/17 02:31 10/01/17 02:33 DC 10/01/17 02:40 1 PATCH Famotidine (Pepcid Tab) 20 mg NOW ONCE PO 10/01/17 02:45 10/01/17 02:46 DC 10/01/17 02:39 20 MG Oxycodone/ Acetaminophen (Percocet 5/ 325MG Home Pack) 1 homepack UD ONCE PO 10/01/17 02:45 10/01/17 02:46 DC 10/01/17 04:17 1 HOMEPACK ECG Indication: nausea Rate (beats per minute): 77 Rhythm: sinus rhythm Findings: no acute ischemic change, no ectopy, other (normal axis, normal intervals) ED Course 0012: The patient was evaluated in room B8. A complete history and physical exam was performed. 0020: Zofran Inj 4mg IV. 0121: Acetaminophen 100ml @ 400mls/hr Protocol IV. 0123: Lactated Ringer's 1000mls @ 999mls/hr IV. 0250: Repeat exam on the patient unchanged. Discussed pain medication and she would prefer to wait and take something at home since she drove. Discussed close follow-up with family doctor as well as possible need for outpatient nuclear scan to better evaluate biliary colic. We'll repeat patient's lactic acid is a precaution although she has had a liter of IV fluids and her Accu- Chek is improved. 0305: Repeat lactic acid is [id number] instead of serum is mildly elevated compared to prior. I feel this is most likely related to the method of testing performed, discussed with patient and will perform a CT as a precaution. Pt admits to noncompliance with medications and diabetic diet. 0415: CT unremarkable. Patient's condition otherwise unchanged. Patient like to go home and follow-up with her family doctor as an outpatient with feel this is reasonable this time. Medical Decision Differential diagnosis: Etiologies such as appendicitis, diverticulitis, PUD, biliary pathology, UTI, pancreatitis, obstruction, mesenteric ischemia, aortic pathology, infections, inflammatory bowel disease, renal colic, as well as others were entertained. Pt with month long right flank/back pain. Scheduled by PCP to have outpt US to evaluate for biliary disease. [place] pain worse tonight. Despite mildly elevated lactate on repeat testing, I feel likely related to method of testing as CT didn't show any acute pathology. Doubt vascular etiology, doubt bacteremia/sepsis, doubt mesenteric ischemia, doubt perforation, doubt pulmonary pathology, doubt ascending cholangitis. Discussed with pt possible biliary colic and may need HIDA, discussed possibly musculoskeletal etiology. No evidence of renal pathology including pyelo or stone. Doubt cardiac etiology. No evidence of DKA/HHNK. Pt declined narcotics here as she is driving home but would like something to be able to take once she gets home. Discussed close f/u with her PCP, discussed sx to watch/return for, she verbalized understanding and was agreeable with plan. Medication Reconcilliation Current Medication List: was personally reviewed by me Blood Pressure Screening Patient's blood pressure: Elevated blood pressure Blood pressure disposition: Elevated BP felt to be situational Impression Primary Impression: Flank pain Additional Impressions: Hyperglycemia Tobacco abuse Scribe Attestation The scribe's documentation has been prepared under my direction and personally reviewed by me in its entirety. I confirm that the note above accurately reflects all work, treatment, procedures, and medical decision making performed by me. Departure Information Dispostion Home / Self-Care Referrals Debora Albrecht D.O. (PCP) Patient Instructions My [facility] Additional Instructions Please follow up with your family doctor. Please discuss with them your ultrasound results tonight as they may advise additional imaging including a nuclear study of your gallbladder. Please keep your appointment for physical therapy. You may use the pain medication as needed, do not take it and drive. During the day or when you have to drive you may use Tylenol and ibuprofen. You may use the pain patches as well, these are now [id number]. If you develop any worsening pain, develop fevers, vomiting, noticed a change in her bowel movements or urine, or you've any other new concerns, please return the emergency room. Please take your other routine medications as prescribed, please check your blood sugar daily. Your blood sugar here was initially elevated, this is likely from not taking your diabetes medication as prescribed. Please adhere to a diabetic diet. Problem Qualifiers
[2017-10-01 00:50] LABS: BASO % 0.5 %; BASO ABS # 0.05 K/uL (0-0.2); COMPLETE YES; EOS % 5.4 %; HEMATOCRIT 33.5 % (37-47); IG% 0.1 %; LYMPH ABS # 4.09 K/uL (1.2-3.4); MEAN CELL VOLUME 83.5 fL (80-100); MEAN CORPUSCULAR HEMOGLOBIN 27.9 pg (25-34); MEAN CORPUSCULAR HGB CONC 33.4 g/dl (32-36); MEAN PLATELET VOLUME 10.6 fL (7.4-10.4); MONO % 6.3 %; NEUT % 46.7 %; PLATELET COUNT 453 K/uL (130-400); RED BLOOD COUNT 4.01 M/uL (4.2-5.4); WHITE BLOOD COUNT 9.97 K/uL (4.8-10.8)
[2017-10-01 01:08] LABS: URINE APPEARANCE CLEAR (CLEAR); URINE BILIRUBIN NEG (NEG); URINE COLOR YELLOW; URINE NITRITE NEG (NEG); URINE SPECIFIC GRAVITY 1.035 (1.000-1.030); UROBILINOGEN NEG (NEG); ZZUR CULT IF INDIC CLEAN CATCH NO
[2017-10-01 01:09] LABS: MANUAL MICROSCOPIC REQUIRED? NO; REVIEW REQ? NO
[2017-10-01 01:18] LABS: ALT/SGPT 37 U/L (12-78); AST/SGOT 16 U/L (15-37); BLOOD UREA NITROGEN 12 mg/dl (7-18); BUN/CREATININE RATIO 9.6 (10-20); CALCIUM 8.6 mg/dl (8.5-10.1); CARBON DIOXIDE 25 mmol/L (21-32); CHLORIDE 103 mmol/L (98-107); CREATININE 1.23 mg/dl (0.60-1.20); GLUCOSE 326 mg/dl (70-99); POTASSIUM 4.5 mmol/L (3.5-5.1); SODIUM 135 mmol/L (136-145)
[2017-10-01 01:20] LABS: ALB/GLOB RATIO 0.9 (0.9-2)
[2017-10-01] MEDS ORDERED: ACETAMINOPHEN IV 100 ML IV STA (01:21)
[2017-10-01] MEDS ORDERED: LACTATED RINGER'S 1000ML 1,000 ML IV STA (01:23)
[2017-10-01 01:28] LABS: ALKALINE PHOSPHATASE 108 U/L (45-117)
[2017-10-01] MEDS ORDERED: LIDODERM (LIDOCAINE) PATCH 5% TD STA (02:31)
[2017-10-01] MEDS ORDERED: FAMOTIDINE 20 MG TAB PO ONE (02:45)
[2017-10-01] MEDS ORDERED: PERCOCET HOME PACK PO ONE (02:45)
[2017-10-01] MEDS ORDERED: OPTIRAY 320 IV PRN (03:15)
[2017-10-01 04:22] VITALS: BP 142/77; PULSE 78; O2SAT 99
--- NOTE | 2017-10-01 07:06 | DIAGNOSTIC IMAGING REPORT ---
ABDOMINAL ULTRASOUND, RIGHT UPPER QUADRANT HISTORY: Right upper quadrant abdominal pain.. COMPARISON: Abdomen and pelvis CTA 12/06/2016. FINDINGS: Pancreas: Obscured by overlying bowel gas. Liver: The liver is echogenic consistent with fatty change. Gallbladder: No gallbladder wall thickening. No gallstones. CBD: 2.8 mm. Right kidney: No hydronephrosis. IMPRESSION: No significant abnormality identified within the right upper quadrant. Electronically signed by: Claude Lai M.D. 10/01/2017 7:05 AM Dictated Date/Time: 10/01/2017 7:03 AM
--- NOTE | 2017-10-01 07:17 | DIAGNOSTIC IMAGING REPORT ---
CT ABD/PELVIS IV CONTRAST ONLY CLINICAL HISTORY: right flank pain COMPARISON STUDY: 12/06/2016 TECHNIQUE: Following the IV administration of 92 mL of Optiray-320, CT scan of the abdomen and pelvis was performed from the lung bases to the proximal femurs. Images are reviewed in the axial, sagittal, and coronal planes. IV contrast was administered without complication. A dose lowering technique was utilized adhering to the principles of ALARA. CT DOSE: 816.32 mGy.cm FINDINGS: Lower chest: There are right middle lobe atelectatic changes. There is a stable subpleural 3 mm right lower lobe pulmonary nodule. Liver: There is minimal hepatic steatosis. No focal masses are visualized. Gallbladder: Unremarkable. Spleen: Normal in size and attenuation. Pancreas: Unremarkable. Adrenal glands: Unremarkable. Kidneys: There is symmetric renal cortical enhancement. The kidneys are normal in size without hydronephrosis. The kidneys have a lobulated contour, unchanged from the prior study. Bowel: There are no transition zones indicate bowel obstruction. There is no acute diverticulitis. There is no evidence of acute appendicitis. Peritoneum: There is no intraperitoneal free air or abdominal ascites. Vasculature: The abdominal aorta is normal in course and caliber. Adenopathy: None. Pelvic viscera: There is a 13 mm left ovarian follicle. Skeletal structures: No destructive osseous lesions are seen. IMPRESSION: 1. No acute findings. 2. No evidence of bowel obstruction. No evidence of free air 3. No evidence of acute appendicitis. No evidence of acute diverticulitis. Electronically signed by: Lonnie James M.D. 10/01/2017 7:16 AM Dictated Date/Time: 10/01/2017 7:12 AM
== END 2017-10-01 04:23 | disposition home or self-care (01) ==
LOC: C.EDB 00:05
DX: R10.9 Unspecified abdominal pain (principal); E11.65 Type 2 diabetes mellitus with hyperglycemia; F17.200 Nicotine dependence, unspecified, uncomplicated; E89.0 Postprocedural hypothyroidism; I10 Essential (primary) hypertension; Z98.891 History of uterine scar from previous surgery; Z83.3 Family history of diabetes mellitus; Z82.49 Family history of ischemic heart disease and other diseases of the circulatory system; Z82.0 Family history of epilepsy and other diseases of the nervous system; Z79.82 Long term (current) use of aspirin; Z79.84 Long term (current) use of oral hypoglycemic drugs; Z79.899 Other long term (current) drug therapy

== ENCOUNTER 2018-01-16 06:26 | Inpatient (IN) | payer OTHER ==
[~2018-01-16] VITALS: Ht 152.4 cm; Wt 93.9 kg
[~2018-01-16 06:26] MED LIST changes: +ATOR10TA82 PO; +GUAISYP5 PO; +LISI10TA PO; -LISI5TAB PO; -METF1000 PO; +SITA1TAB27 PO; +TMF75 PO; -TRMO115 TOP
[2018-01-16] MEDS ORDERED: SODIUM CHLORIDE 0.9% 1000ML 1,000 ML IV SCH ×2 (07:02→11:45)
[2018-01-16] MEDS ORDERED: MoRPHine SULFATE 4 MG/ML 1 ML CARP\\VIAL IV STA (07:14)
[2018-01-16] MEDS ORDERED: ONDANSETRON INJ 2 MG/ML 2 ML VIAL IV STA (07:14)
[2018-01-16 07:25] LABS: BASO % 0.2 %; BASO ABS # 0.02 K/uL (0-0.2); EOS % 4.4 %; EOS ABS # 0.41 K/uL (0-0.5); HEMATOCRIT 34.2 % (37-47); IG# 0.03 K/uL (0.00-0.02); LYMPH % 29.5 %; LYMPH ABS # 2.76 K/uL (1.2-3.4); MEAN CELL VOLUME 82.6 fL (80-100); MEAN CORPUSCULAR HEMOGLOBIN 26.6 pg (25-34); MEAN CORPUSCULAR HGB CONC 32.2 g/dl (32-36); MEAN PLATELET VOLUME 10.9 fL (7.4-10.4); MONO ABS # 0.75 K/uL (0.11-0.59); NEUT % 57.6 %; NEUT ABS # 5.39 K/uL (1.4-6.5); PLATELET COUNT 422 K/uL (130-400); RED CELL DISTRIBUTION WIDTH CV 15.1 % (11.5-14.5); RED CELL DISTRIBUTION WIDTH SD 45.8 fL (36.4-46.3); WHITE BLOOD COUNT 9.36 K/uL (4.8-10.8)
[2018-01-16 07:32] LABS: INR 0.9 (0.9-1.1); PTT PATIENT 21.9 SECONDS (21.0-31.0)
[2018-01-16 07:38] LABS: BLOOD UREA NITROGEN 12 mg/dl (7-18); CALCIUM 8.8 mg/dl (8.5-10.1); CARBON DIOXIDE 25 mmol/L (21-32); CREATININE 0.85 mg/dl (0.60-1.20); GLUCOSE 228 mg/dl (70-99); POTASSIUM 3.8 mmol/L (3.5-5.1); SODIUM 134 mmol/L (136-145)
[2018-01-16 07:43] LABS: CKMB < 0.5 ng/ml (0.5-3.6)
--- NOTE | 2018-01-16 07:57 | DIAGNOSTIC IMAGING REPORT ---
CT HEAD WITHOUT CONTRAST (CT) CLINICAL HISTORY: Stroke COMPARISON STUDY: MRI the brain dated 06/29/2015 TECHNIQUE: Axial CT of the brain is performed from the vertex to the skull base. IV contrast was not administered for this examination. A dose lowering technique was utilized adhering to the principles of ALARA. CT DOSE: 638.56 mGycm FINDINGS: No intra or extra-axial mass lesions are visualized. There is no CT evidence of acute cortical infarction. There is no evidence of midline shift. There is no acute hemorrhage. No calvarial fractures are visualized. There are subtle white matter hypodensities likely on a small vessel basis. There is no evidence of pathologic ventricular dilatation. 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 01/16/2018 7:56 AM Dictated Date/Time: 01/16/2018 7:53 AM
--- NOTE | 2018-01-16 08:23 | EMERGENCY ROOM VISIT NOTE ---
History Report prepared by Alicia: Valeria Tracey Under the Supervision of: Dr. Bud Nicholson M.D. First contact with patient: 07:01 Chief Complaint: NEURO SYMPTOMS Stated Complaint: RIGHT SIDED NUMBNESS Nursing Triage Summary: Pt presents s for evaluation of stroke like symptoms. Right sided numbness to face/arm/leg. Starting approx 1400 yesterday. History of Present Illness The patient is a 52 year old female who presents to the Emergency Room with complaints of persistent headache starting yesterday. The headache is on the left side of her head. She currently rates her discomfort as a 9/10 in severity. She tried taking Tylenol to no significant relief. She also notes that her right hand has been moving on its own starting yesterday. She has a toothache. She did not sleep well last night. The patient was recently admitted with suspected PE, but radiology review found no PE. Therefore they stopped anticoagulation. They found she had influenza and was discharged home on Tamiflu. She has a history of stroke. She denies any history of headaches. Pt denies LOC, fevers, chills, diaphoresis, visual changes, neck pain, chest pain, breathing difficulties, nausea, vomiting, abdominal pain, back pain, melena, hematochezia, urinary symptoms, numbness, weakness, lymphadenopathy, rash, or other complaints. Source of History: patient Onset: yesterday Position: head Symptom Intensity: 9/10 Quality: ache Timing: other (persistent) Note: Pt reports right hand is moving on its own, toothache. Review of Systems See HPI for pertinent positives and negatives. A total of ten systems were reviewed and were otherwise negative. Past Medical & Surgical Medical Problems: (1) Abdominal pain (2) Anemia (3) Chronic neck and back pain (4) Diabetes (5) H/O: stroke (6) History of hypothyroidism (7) Hx of goiter (8) Hyperlipidemia (9) Hypertension (10) Lower gastrointestinal bleed (11) Right upper extremity numbness Surgical Problems: (1) History of delivery (2) History of thyroidectomy Family History Diabetes mellitus Heart disease Hypertension Seizures Social History Smoking Status: Unknown if Ever Smoked Alcohol Use: none Drug Use: none Marital Status: single Housing Status: lives alone Occupation Status: unemployed Current/Historical Medications Scheduled Aspirin (Aspirin Ec), 162 MG PO DAILY Atorvastatin (Lipitor), 10 MG PO DAILY Glipizide (Glucotrol), 1 TAB PO BID Levothyroxine Sodium (Synthroid), 200 MCG PO DAILY Lisinopril (Prinivil), 10 MG PO DAILY Metformin Hcl (Glucophage), 1 TAB PO BID Scheduled PRN Guaifenesin-Codeine (Robitussin-Ac Syrup), 10 ML PO Q6H PRN for Cough Allergies Coded Allergies: No Known Allergies (Unverified , 01/16/18) Physical Exam Vital Signs Date Time Temp Pulse Resp B/P (MAP) Pulse Ox O2 Delivery O2 Flow Rate FiO2 01/16/18 09:31 74 22 97 01/16/18 09:21 90 18 154/103 97 Room Air 01/16/18 09:21 154/103 01/16/18 09:01 67 24 98 01/16/18 08:31 88 21 97 01/16/18 08:26 93 21 01/16/18 08:16 170/76 01/16/18 07:34 81 20 154/93 97 Room Air 01/16/18 07:33 154/93 01/16/18 07:26 80 21 97 01/16/18 07:05 97 Room Air 01/16/18 06:56 81 21 97 01/16/18 06:37 82 01/16/18 06:32 176/83 01/16/18 06:31 36.7 91 18 176/83 98 Room Air Physical Exam GENERAL: Awake, but sleepy, in mild distress HENT: Normocephalic, atraumatic. Oropharynx unremarkable. EYES: Normal conjunctiva. Sclera non-icteric. NECK: Supple. No nuchal rigidity. FROM. No masses. RESPIRATORY: Clear to auscultation. No wheezes. CARDIAC: Normal rate. Normal rhythm. No murmurs. No rubs. Extremities warm and well perfused. Pulses equal. No JVD. GI: Soft, non-distended. No tenderness to palpation. No rebound or guarding. No masses. RECTAL: Deferred. MUSCULOSKELETAL: Atraumatic. Chest examination reveals no tenderness. The back is symmetrical on inspection without obvious abnormality. There is no CVA tenderness to palpation. No joint edema. LOWER EXTREMITIES: Calves are equal size bilaterally and non-tender. No edema. No discoloration. NEURO: Mildly altered sensorium. Slow to follow commands. There is a paucity of speech and it is very soft. Moving her arms and legs. SKIN: No rash or jaundice noted. Medical Decision & Procedures ER Provider Diagnostic Interpretation: Radiology results as stated below per my review and radiologist interpretation: CHEST ONE VIEW PORTABLE CLINICAL HISTORY: numbness, stroke like symptoms COMPARISON STUDY: 01/09/2018 FINDINGS: The cardiac and mediastinal contours are normal. There is no evidence of focal pulmonary consolidation. There is no evidence of failure. No pleural effusions are visualized.[ IMPRESSION: No active disease in the chest. Electronically signed by: Lonnie James M.D. 01/16/2018 8:23 AM Dictated Date/Time: 01/16/2018 8:[address] HEAD WITHOUT CONTRAST (CT) CLINICAL HISTORY: Stroke COMPARISON STUDY: MRI the brain dated 06/29/2015 TECHNIQUE: Axial CT of the brain is performed from the vertex to the skull base. IV contrast was not administered for this examination. A dose lowering technique was utilized adhering to the principles of ALARA. CT DOSE: 638.56 mGycm FINDINGS: No intra or extra-axial mass lesions are visualized. There is no CT evidence of acute cortical infarction. There is no evidence of midline shift. There is no acute hemorrhage. No calvarial fractures are visualized. There are subtle white matter hypodensities likely on a small vessel basis. There is no evidence of pathologic ventricular dilatation. 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 01/16/2018 7:56 AM Dictated Date/Time: 01/16/2018 7:53 AM Laboratory Results 01/16/18 06:40 Red Blood Count 4.14, Mean Corpuscular Volume 82.6, Mean Corpuscular Hemoglobin 26.6, Mean Corpuscular Hemoglobin Concent 32.2, Mean Platelet Volume 10.9, Neutrophils (%) (Auto) 57.6, Lymphocytes (%) (Auto) 29.5, Monocytes (%) (Auto) 8.0, Eosinophils (%) (Auto) 4.4, Basophils (%) (Auto) 0.2, Neutrophils # (Auto) 5.39, Lymphocytes # (Auto) 2.76, Monocytes # (Auto) 0.75, Eosinophils # (Auto) 0.41, Basophils # (Auto) 0.02 01/16/18 06:40 Test 01/16/18 06:40 01/16/18 07:30 White Blood Count 9.36 K/uL (4.8-10.8) Red Blood Count 4.14 M/uL (4.2-5.4) Hemoglobin 11.0 g/dL (12.0-16.0) Hematocrit 34.2 % (37-47) Mean Corpuscular Volume 82.6 fL (80-100) Mean Corpuscular Hemoglobin 26.6 pg (25-34) Mean Corpuscular Hemoglobin Concent 32.2 g/dl (32-36) Platelet Count 422 K/uL (130-400) Mean Platelet Volume 10.9 fL (7.4-10.4) Neutrophils (%) (Auto) 57.6 % Lymphocytes (%) (Auto) 29.5 % Monocytes (%) (Auto) 8.0 % Eosinophils (%) (Auto) 4.4 % Basophils (%) (Auto) 0.2 % Neutrophils # (Auto) 5.39 K/uL (1.4-6.5) Lymphocytes # (Auto) 2.76 K/uL (1.2-3.4) Monocytes # (Auto) 0.75 K/uL (0.11-0.59) Eosinophils # (Auto) 0.41 K/uL (0-0.5) Basophils # (Auto) 0.02 K/uL (0-0.2) RDW Standard Deviation 45.8 fL (36.4-46.3) RDW Coefficient of Variation 15.1 % (11.5-14.5) Immature Granulocyte % (Auto) 0.3 % Immature Granulocyte # (Auto) 0.03 K/uL (0.00-0.02) Erythrocyte Sedimentation Rate 49 mm/hr (0-21) Prothrombin Time 9.8 SECONDS (9.0-12.0) Prothromb Time International Ratio 0.9 (0.9-1.1) Activated Partial Thromboplast Time 21.9 SECONDS (21.0-31.0) Partial Thromboplastin Ratio 0.8 Anion Gap 9.0 mmol/L (3-11) Est Creatinine Clear Calc Drug Dose 82.0 ml/min Estimated GFR () 91.3 Estimated GFR (Non- 78.8 BUN/Creatinine Ratio 14.0 (10-20) Estimated Average Glucose 258 mg/dl Hemoglobin A1c 10.6 % (4.5-5.6) Calcium Level 8.8 mg/dl (8.5-10.1) Magnesium Level 1.7 mg/dl (1.8-2.4) Total Creatine Kinase 45 U/L (26-192) Creatine Kinase MB < 0.5 ng/ml (0.5-3.6) Creatine Kinase MB Ratio (0-3.0) Troponin I < 0.015 ng/ml (0-0.045) C-Reactive Protein 0.89 mg/dl (0-0.29) Thyroid Stimulating Hormone (TSH) 2.880 uIu/ml (0.300-4.500) Human Chorionic Gonadotropin, Qual NEG (NEG) Bedside Prothrombin Time INR 1.1 (0.9-1.1) Laboratory results reviewed by me Medications Administered Medications (Trade) Dose Ordered Sig/Sunny Route Start Time Stop Time Status Last Admin Dose Admin Sodium Chloride 1,000 ml @ 50 mls/hr Q20H IV 01/16/18 07:02 01/16/18 11:52 DC 01/16/18 08:35 50 MLS/HR Morphine Sulfate (MoRPHine SULFATE INJ) 4 mg NOW STAT IV 01/16/18 07:14 01/16/18 07:15 DC 01/16/18 07:33 4 MG Ondansetron HCl (Zofran Inj) 4 mg NOW STAT IV 01/16/18 07:14 01/16/18 07:15 DC 01/16/18 07:31 4 MG Ketorolac Tromethamine (Toradol Inj) 15 mg NOW STAT IV 01/16/18 08:44 01/16/18 08:45 DC 01/16/18 09:22 15 MG ECG Per My Interpretation Indication: altered mental status Rate (beats per minute): 81 Rhythm: normal sinus Findings: no acute ischemic change, no ectopy, other (right axis) ED Course 0702: NSS 1000 ml @ 50 mls/hr IV. 0708: The patient was evaluated in room B7. A complete history and physical exam was performed. 0714: Zofran Inj 4 mg IV, Morphine Sulfate 4 mg IV. 0843: I reevaluated the patient. She still feels off with arm numbness and headache. I discussed the test results and treatment plan with her. The patient will be evaluated for further management. 0844: Toradol Inj 15 mg IV. 0857: I discussed the patient's case with JL Oconnor. The patient will be evaluated for further treatment and disposition. Medical Decision Triage Nursing notes reviewed. The patient's presentation and history were concerning for numbness and headache. Etiologies such as metabolic, infection, hypo/hyperglycemia, electrolyte abnormalities, cardiac sources, intracerebral event, toxicologic, neurologic, as well as others were entertained. The patient was evaluated. She complained of a headache. She seemed tired. She was whispering most of the time. She noted that her left arm was moving around on its own. She had some difficulty following commands. Occasionally it would take 4 or 5 prompts to answer 1 question. She underwent blood work, ECG and imaging. The patient was given a dose of morphine and Zofran for her headache. Her CBC was unremarkable. The patient had normal cardiac markers and chemistries. ECG did not show any dysrhythmia or ischemia. Head CT was unremarkable. Chest x-ray was negative. Given the patient's neurologic symptoms further evaluation and management in the hospital was felt the warranted. The patient has no evidence of stroke on CT scan. She is outside of any window for thrombolytics as her symptoms started yesterday. The exact etiology of her symptoms not obvious at this time. Consultation was made with the [facility] service. The patient was evaluated in the Emergency Room for further management. Medication Reconcilliation Current Medication List: was personally reviewed by me Blood Pressure Screening Patient's blood pressure: Elevated blood pressure Referred to hospitalist. Consults Time Called: [phone] Consulting Physician: JL Oconnor Returned Call: [phone] Discussed the patient's case. The patient will be evaluated for further treatment and disposition. Impression Primary Impression: Left sided numbness Additional Impression: Headache Scribe Attestation The scribe's documentation has been prepared under my direction and personally reviewed by me in its entirety. I confirm that the note above accurately reflects all work, treatment, procedures, and medical decision making performed by me. Departure Information Dispostion Being Evaluated By Hospitalist Referrals Debora Albrecht D.O. (PCP) Patient Instructions My [facility] Problem Qualifiers
[2018-01-16] MEDS ORDERED: KETOROLAC TROMETHAMINE 30 MG/ML VIAL IV STA (08:44)
[2018-01-16] MEDS ORDERED: PHARMACIST DISCHARGE MED REC CONSULT PRN ×4 (10:00→14:45)
[2018-01-16] MEDS ORDERED: POLYETHYLENE (MIRALAX) 17 GM PACK PO PRN (10:00)
[2018-01-16] MEDS ORDERED: NITROGLYCERIN 0.4 MG SL PER TAB CHARGE SL PRN (10:00)
[2018-01-16] MEDS ORDERED: DEXTROSE 50% 50 ML SYR IV PRN (10:15)
[2018-01-16] MEDS ORDERED: GLUCAGON FOR INJ 1 MG VIAL SQ PRN (10:15)
[2018-01-16] MEDS ORDERED: GLUCOSE 10 TABS/TUBE PO PRN (10:15)
[2018-01-16] MEDS ORDERED: GLUCOSE 40% GEL 15 GM TUBE PO PRN (10:15)
[2018-01-16] MEDS ORDERED: METF1000 PO (10:20)
[2018-01-16 11:04] LABS: HEMOGLOBIN A1C 10.6 % (4.5-5.6)
[2018-01-16] MEDS ORDERED: NURSING VERBAL MED ORDER ONE (11:30)
[2018-01-16 11:31] VITALS: BP 158/89; PULSE 68; TEMP 36.8; O2SAT 93; BMI 39.6
[2018-01-16] MEDS ORDERED: LORAZEPAM 0.5 MG TAB PO ONE (11:45)
[2018-01-16] MEDS ORDERED: PHARMACY GLYCEMIC MGMT CONSULT PRN (11:51)
--- NOTE | 2018-01-16 11:58 | History and Physical ---
History & Physical Date & Time of Service: Jan 16, 2018 at 10:21 Chief Complaint: Right Sided Numbness Primary Care Physician: Debora Albrecht D.O. History of Present Illness Source: patient, clinic records, hospital records Pt is 52 y/o F with PMH CVA, HTN, uncontrolled DM II, HLD, hypothyroidism presented to ER with c/o Left sided HAM and R arm numbness and weakness started yesterday morning. HAM continuous. She tried Tylenol once yesterday without relief. Entire R arm feels numb and weak. Pt states that she just needs to keep her eyes closed because her eyes hurt, left more than right. She doesn't think she has any blurred vision, diplopia, vision loss. Denies any photophobia or phonophobia. Got some nausea after pain meds in ER and vomited once per pt, no other nausea or vomiting previous. Pt admits is non-compliant with her medications and doesn't take them regularly. She didn't take medications yet today. She is on Metformin for DM II, doesn't take regularly. She was Rx januvia , however pt states was not covered by her insurance, so she never started that. Pt was hospitalized 01/09/18 for PE, however was radiology over read and report was then negative for PE. Had influenza A. She was d/c on Tamiflu and guaifenesin with codeine. Pt states cough much improved. Not feeling achy or SOB any more. Denies neck pain. Denies hx migraines in past. Denies recent head injury. Denies eye redness, eye discharge or tearing, fever/chills, diaphoresis , dizziness, syncope, speech changes, facial drooping, CP, SOB, orthopnea, palpitations, sore throat, choking, otalgia, rhinorrhea, abdominal pain, extremity edema, rashes, urinary symptoms. Denies hx anxiety or depression. ER staff report notice pt moving R arm, and then when ask pt to move her R arm she reports that she cannot. Also report pt would not talk to them at times. In ER pt given morphine, zofran, toradol with little relief of HAM. Had CT scan in ER no acute changes, old R parietal/occipital infarct. Negative CXR. Hx CT Head out pt in 06/28/2015: Impression: several small cortical infarctions involving the right posterior frontal lobe and right parieto-occipital lobe. Findings are of indeterminate age ; some of these may be acute to subacute in age. No evidence for intracranial hemorrhage MRI 06/29/15: IMPRESSION: 1. No evidence of acute or subacute infarction. 2. No evidence of hydrocephalus. 3. Gyriform foci of increased FLAIR signal within the right parietal and occipital lobes. The appearance is nonspecific, but possibly secondary to a prior ischemic insult. If this is inconsistent with the patient's clinical history and symptoms, then one might consider a contrast enhanced MRI study to help exclude other potential etiologies for this finding. Past Medical/Surgical History Medical Problems: (1) Abdominal pain Status: Resolved (2) Anemia Status: Chronic (3) Chronic neck and back pain Status: Chronic (4) Diabetes Status: Chronic (5) H/O: stroke Status: Chronic (6) History of hypothyroidism Status: Chronic (7) Hx of goiter Permanent Comment: s/p thyroidectomy Status: Chronic (8) Hypertension Status: Chronic (9) Lower gastrointestinal bleed Status: Resolved Surgical Problems: (1) History of delivery Status: Resolved (2) History of thyroidectomy Status: Resolved Family History Diabetes mellitus Heart disease Hypertension Seizures Social History Smoking Status: Former Smoker Smokeless Tobacco Use: No Alcohol Use: none Drug Use: none Marital Status: single Housing status: lives with roommate Occupational Status: unemployed Immunizations History of Influenza Vaccine: Yes Influenza Vaccine Date: Nov 05, 2016 Tetanus Immunization Date: Dec 23, 2014 History of Pneumococcal: No History of Hepatitis B Vaccine: No Allergies Coded Allergies: No Known Allergies (Unverified , 01/16/18) Home Medications Scheduled Aspirin (Aspirin Ec), 162 MG PO DAILY Atorvastatin (Lipitor), 10 MG PO DAILY Glipizide (Glucotrol), 1 TAB PO BID Levothyroxine Sodium (Synthroid), 200 MCG PO DAILY Lisinopril (Prinivil), 10 MG PO DAILY Metformin Hcl (Glucophage), 1 TAB PO BID Scheduled PRN Guaifenesin-Codeine (Robitussin-Ac Syrup), 10 ML PO Q6H PRN for Cough Review of Systems See HPI for pertinent positives & negatives. All other systems reviewed and were otherwise negative Physical Exam Vital Signs Date Time Temp Pulse Resp B/P (MAP) Pulse Ox O2 Delivery O2 Flow Rate FiO2 01/16/18 09:21 90 18 154/103 97 Room Air 01/16/18 08:26 93 21 01/16/18 08:16 170/76 01/16/18 07:34 81 20 154/93 97 Room Air 01/16/18 07:33 154/93 01/16/18 07:26 80 21 97 01/16/18 07:05 97 Room Air 01/16/18 06:56 81 21 97 01/16/18 06:37 82 01/16/18 06:32 176/83 01/16/18 06:31 36.7 91 18 176/83 98 Room Air General Appearance: WD/WN, no apparent distress Head: normocephalic, atraumatic, + pertinent finding (no temporal tenderness to palpation ) Eyes: normal inspection, PERRL, EOMI, sclerae normal, + pertinent finding (no tearing or discharge) ENT: hearing grossly normal, pharynx normal, + pertinent finding (mucous membranes moist) Neck: supple, trachea midline Respiratory/Chest: lungs clear, normal breath sounds, no respiratory distress, no accessory muscle use Cardiovascular: regular rate, rhythm, no murmur, normal peripheral pulses Abdomen/GI: normal bowel sounds, non tender, soft Extremities/Musculoskelatal: normal capillary refill, no pedal edema, non- tender Neurologic/Psych: alert, oriented x 3, + pertinent finding (somewhat flat affect. Pt speaking in soft voice. Follows commands. Much prompting to get pt to do active ROM of R arm and is able abduct to 90 degrees, flexion and extension intact. L upper extremity with full active ROM. Right arm with decreased strength compared to L arm. Decreased R distresser strength compared to left. Reflexes intact. Bilateral lower extremities with equal strength. When pt stands reports legs feel weak bilaterally. Unsteady gait. Negative Romberg. Pt unable to perform finger to nose testing with R hand.) Skin: normal color, warm/dry Diagnostics Laboratory Results Results Past 24 Hours Test 01/16/18 06:40 01/16/18 07:30 01/16/18 09:54 01/16/18 10:09 Range/Units White Blood Count 9.36 4.8-10.8 K/uL Red Blood Count 4.14 4.2-5.4 M/uL Hemoglobin 11.0 12.0-16.0 g/dL Hematocrit 34.2 37-47 % Mean Corpuscular Volume 82.6 80-100 fL Mean Corpuscular Hemoglobin 26.6 25-34 pg Mean Corpuscular Hemoglobin Concent 32.2 32-36 g/dl Platelet Count 422 130-400 K/uL Mean Platelet Volume 10.9 7.4-10.4 fL Neutrophils (%) (Auto) 57.6 % Lymphocytes (%) (Auto) 29.5 % Monocytes (%) (Auto) 8.0 % Eosinophils (%) (Auto) 4.4 % Basophils (%) (Auto) 0.2 % Neutrophils # (Auto) 5.39 1.4-6.5 K/uL Lymphocytes # (Auto) 2.76 1.2-3.4 K/uL Monocytes # (Auto) 0.75 0.11-0.59 K/uL Eosinophils # (Auto) 0.41 0-0.5 K/uL Basophils # (Auto) 0.02 0-0.2 K/uL RDW Standard Deviation 45.8 36.4-46.3 fL RDW Coefficient of Variation 15.1 11.5-14.5 % Immature Granulocyte % (Auto) 0.3 % Immature Granulocyte # (Auto) 0.03 0.00-0.02 K/uL Erythrocyte Sedimentation Rate 49 0-21 mm/hr Prothrombin Time 9.8 9.0-12.0 SECONDS Prothromb Time International Ratio 0.9 0.9-1.1 Activated Partial Thromboplast Time 21.9 21.0-31.0 SECONDS Partial Thromboplastin Ratio 0.8 Sodium Level 134 136-145 mmol/L Potassium Level 3.8 3.5-5.1 mmol/L Chloride Level 101 98-107 mmol/L Carbon Dioxide Level 25 21-32 mmol/L Anion Gap 9.0 3-11 mmol/L Blood Urea Nitrogen 12 7-18 mg/dl Creatinine 0.85 0.60-1.20 mg/dl Est Creatinine Clear Calc Drug Dose 82.0 ml/min Estimated GFR () 91.3 Estimated GFR (Non- 78.8 BUN/Creatinine Ratio 14.0 10-20 Random Glucose 228 70-99 mg/dl Calcium Level 8.8 8.5-10.1 mg/dl Magnesium Level 1.7 1.8-2.4 mg/dl Total Creatine Kinase 45 26-192 U/L Creatine Kinase MB < 0.5 0.5-3.6 ng/ml Creatine Kinase MB Ratio 0-3.0 Troponin I < 0.015 0-0.045 ng/ml C-Reactive Protein 0.89 0-0.29 mg/dl Bedside Prothrombin Time INR 1.1 0.9-1.[address]: FINDINGS: No intra or extra-axial mass lesions are visualized. There is no CT evidence of acute cortical infarction. There is no evidence of midline shift. There is no acute hemorrhage. No calvarial fractures are visualized. There are subtle white matter hypodensities likely on a small vessel basis. There is no evidence of pathologic ventricular dilatation. There is an old subtle right parietal/occipital infarct There is no evidence of acute sinusitis IMPRESSION: No acute intracranial findings CXR: IMPRESSION: No active disease in the chest. EKG EKG: NSR, rate 81, no ST elevation noted Impression Assessment and Plan HAM, R ARM NUMBNESS WEAKNESS Pt with L sided HAM and R arm numbness/weakness for past 24 hours. Hx CVA in past. No acute findings on today's CT scan. +old R parietal/occipital infarct noted. ESR today: 49 (was 49 on 01/09/18). CRP: 0.89 (was 1.99 on 01/09/18). Negative test. DDX: CVA, atypical migraine, conversion disorder -U/A, urine tox screen pending -R/O CVA with MRI, carotid U/S -continue ASA, Statin -Toradol prn HAM -repeat cbc, prp in am -neuro consult DM II - UNCONTROLLED Pt non-compliant. HA1c in 10/03 was 11. Gluc: 228 -hold metformin -HA1c in am -Novolog sliding scale, Lantus -glycemic consult and diabetes education consult HTN Initially 176/83 down to 147/37 -continue lisinopril HYPOMAGNESIA Ma.7 -replace -repeat magnesium lab in am HYPONATREMIA Na: 134 -IVF -repeat prp in am HYPERLIPIDEMIA -continue statin -lipid panel in am HYPOTHYROIDISM S/P THYROIDECTOMY FOR GOITER TSH: 2.5 on 01/09/18. -continue levothyroxine DVT Prophylaxis -lovenox Disposition admit tele Full Code Follows with Dr Albrecht for routine care Pt was seen with Dr Farrell. See addendum Attending addendum Patient seen and examined, care coordinated with Irene HALL Labs and images reviewed This is a 52-year-old female with past medical history of poorly controlled diabetes, hypertension, hypothyroidism, History of prior CVA Presented with headache, right-sided numbness started since yesterday No facial droop, no dysphasia or dysarthria noted. CT head negative for CVA , her rt sided weakness , paresthesia has improved, complains of intractable headache denies of photophobia or sensitivity to sound , no prior hx of Migrane P/E: as per Irene HALL A/P : HEADACHE /RT SIDED TRANSIENT WEAKNESS : presentation atypical for CVA no focal neurological deficit noted in physical exam initially complains of numbness on rt hand , but symptom resolved as pt is distracted with conversation possible Atypical Migraine will do stroke work up given risk factors , and prior hx of CVA MRI of brain ordered Neurology eval requested ordered for PRN Toradol for headache POORLY CONTROLLED TYPE 2 DM : HB A1c > 10 questionable compliance insulin [facility] pharmacy consulted for glycemic management in service educator consulted Please refer to documentation of Irene HALL for further discussion of other issues Mary Farrell MD Resuscitation Status Full Code VTE Prophylaxis Will order VTE Prophylaxis: Yes Additional Copies To Debora Albrecht D.O.
[2018-01-16] MEDS ORDERED: MAGNESIUM SULFATE 1GM / D5W 1 GM in PREMIXED IN D5W 100 ML IV ONE (12:00)
[2018-01-16] MEDS ORDERED: INSULIN GLARGINE SOLOSTAR 100 UNITS/ML 3 ML PEN SC ONE (12:00)
[2018-01-16] MEDS: KETOROLAC TROMETHAMINE 15 MG/ML VIAL IV PRN ×2 (12:21→19:36)
--- NOTE | 2018-01-16 12:36 | Pharmacy Progress Note ---
Glycemic Control Intl Consult Date of Service Jan 16, 2018. Scope Glycemic Pharmacist consulted for glycemic control and to write orders per [facility] inpatient glycemic control protocol Objective Weight (Kilograms): 92.000 Accuchecks BSG (last 24hrs): Test 01/16/18 06:40 01/16/18 11:41 Random Glucose 228 mg/dl (70-99) Bedside Glucose 286 mg/dl (70-90) Laboratory Data (last 24hrs) Test 01/16/18 06:40 Anion Gap 9.0 mmol/L BUN/Creatinine Ratio 14.0 Blood Urea Nitrogen 12 mg/dl Creatinine 0.85 mg/dl Hemoglobin A1c 10.6 % Potassium Level 3.8 mmol/L Sodium Level 134 mmol/L White Blood Count 9.36 K/uL Red Blood Count 4.14 M/uL Hemoglobin 11.0 g/dL Hematocrit 34.2 % Mean Corpuscular Volume 82.6 fL Mean Corpuscular Hemoglobin 26.6 pg Mean Corpuscular Hemoglobin Concent 32.2 g/dl Platelet Count 422 K/uL Mean Platelet Volume 10.9 fL Neutrophils (%) (Auto) 57.6 % Lymphocytes (%) (Auto) 29.5 % Monocytes (%) (Auto) 8.0 % Eosinophils (%) (Auto) 4.4 % Basophils (%) (Auto) 0.2 % Neutrophils # (Auto) 5.39 K/uL Lymphocytes # (Auto) 2.76 K/uL Monocytes # (Auto) 0.75 K/uL Eosinophils # (Auto) 0.41 K/uL Basophils # (Auto) 0.02 K/uL HbA1c Test 01/16/18 06:40 Hemoglobin A1c 10.6 % (4.5-5.6) H Recent Pertinent Medications Outpatient Anti-diabetic Regimen: * Glipizide 5mg PO BIDM * Metformin 1,000mg PO BIDM Assessment & Plan ASSESSMENT: * 52yo T2DM female with poor outpatient control per recent A1c * Goal A1c is <7% based on age/comorbidities and elements of diabetes care scoring scale * Pt is maintained on oral antidiabetic agents as an outpatient * Oral agents are not recommended for inpatient use d/t drug interactions, changing PO intake, and difficulty titrating for acute hyper/hypoglycemia. ADA recommends re-initiating outpatient oral agents 1-2 days prior to discharge if/ when appropriate if they were held on admission. * Will hold oral agents for admission and utilize SQ basal bolus insulin regimen which is the recommended regimen for inpatient glycemic control. * Will initiate weight based insulin dosing for insulin damien patient and titrate based on BSG trends. * Will start with ~weight and stress of 2 since BSG & A1c significantly elevated on admission PLAN FOR INPATIENT GLYCEMIC CONTROL: * Holding outpatient oral diabetes medications * Basal insulin * Lantus 25 units SQ daily * Will try to keep basal insulin with daily dosing (rather than BID) since basal insulin will be needed at discharge for A1c >10%. * May need a small dose of basal insulin at HS if BSG > 200 * Bolus insulin * NovoLog per scale ACHS or Q6hrs while NPO. Additional checks + coverage at 0000 & 0400 tonight * Goal Range: Low 120 mg/dL - High 160 mg/dL {slightly higher goal range for elevated A1c, pt may feel hypo at otherwise normal A1c) * Correction Factor: 20 mg/dL/unit * Nutritional / Prandial insulin per carb ratio of 1 unit per 7 grams CHO consumed * Please note that the plan above was derived based on current level of insulin resistance and hospital stress. These recommendations are appropriate for inpatient admission only. Plan of care upon discharge will need to be reassessed to avoid potential outpatient hypo/hyperglycemia. Thank you.
--- NOTE | 2018-01-16 13:33 | DIAGNOSTIC IMAGING REPORT ---
MRI OF THE BRAIN WITHOUT AND WITH IV CONTRAST CLINICAL HISTORY: Stroke symptoms. Right-sided numbness. COMPARISON STUDY: MRI of the brain June 29, [address] January 16, 2018. TECHNIQUE: Utilizing a 1.5 Vanesa magnet and dedicated coil, multiplanar, multiecho imaging of the brain was performed pre and postcontrast administration. IV administration of 9.5 mL of Gadavist contrast was uneventful. FINDINGS: Multiple foci of restricted diffusion within the left cerebral hemisphere are consistent with acute infarcts. The largest is a 1.9 cm infarct within the left temporal lobe. There is no significant mass effect. There is no hemorrhagic conversion. There are numerous additional smaller infarcts within left frontal, parietal and occipital lobes. There is a probable small focus of restricted diffusion within the posterior right parietal lobe as well. Ventricular system is normal. Basilar cisterns are patent. There are old right-sided cerebral infarct. The basilar cisterns are patent. There are no extra axial collections. There is no intracranial mass or pathologic enhancement. There is trace fluid within left mastoid air cells. IMPRESSION: Numerous small acute infarcts within the left cerebral hemisphere and a small acute infarct within the posterior right parietal lobe. The findings suggest an embolic event. No significant mass effect and no hemorrhage. Several old right-sided infarcts. Electronically signed by: Chung Chau M.D. 01/16/2018 1:32 PM Dictated Date/Time: 01/16/2018 1:20 PM
--- NOTE | 2018-01-16 13:38 | Neurology Consultation ---
Neurology Consultation Date of Consultation: Jan 16, 2018. Attending Physician: Edvin Hair MD Primary Care Physician: Debora Albrecht D.O. Reason for Consultation: headache with right arm numbness History of Present Illness Source: patient Yolanda is a 52 year old female with PMH CVA, HTN, uncontrolled DM II, HLD, hypothyroidism. She presented with c/o Left sided HAM and R arm numbness and weakness started the morning of 01/15/18. She tried Tylenol once yesterday without relief and her entire right arm had been numb and weak. It was reported she is non-compliant with her medications and doesn't take them regularly and didn't take them the day of admission. But went asking her she states she does try to take them as ordered. She has a previous hospitalization on 01/09/18 for PE but there was no PE and she was found to have influenza A. She states she was prescribed aspirin but it was stopped when she had some bleeding during a coloscopy. She was placed back on aspirin but only took it occasionally. She states she is having some blurred vision right arm is not "working" right, dizziness, headache. She denies history of irregular heart beat, falls, CP, SOB , N, V, swallowing issues. Past Medical/Surgical History Medical Problems: (1) Anterior chest wall pain Status: Acute (2) Back pain Status: Acute (3) Chronic neck and back pain Status: Acute (4) Flank pain Status: Acute (5) Headache Status: Acute (6) Hyperglycemia Status: Acute (7) Left sided chest pain Status: Acute (8) Left sided numbness Status: Acute (9) Pulmonary embolism Status: Acute (10) Pulmonary nodule Status: Acute (11) Tobacco abuse Status: Acute Social History Smokeless Tobacco Use: No Alcohol Use: none Drug Use: none Marital Status: single Housing Status: lives alone Occupation Status: unemployed Allergies Coded Allergies: No Known Allergies (Unverified , 01/16/18) Current Inpatient Medications Current Inpatient Medications Medications (Trade) Dose Ordered Sig/Sunny Route Start Time Stop Time Status Last Admin Dose Admin Miscellaneous Information (Pharmacist Discharge Med Rec Consult) 1 ea UD PRN N/A 01/16/18 10:00 02/15/18 09:59 Acetaminophen (Tylenol Tab) 650 mg Q4H PRN PO 01/16/18 10:00 02/15/18 09:59 Nitroglycerin (Nitrostat Tab) 0.4 mg UD PRN SL 01/16/18 10:00 02/15/18 09:59 Polyethylene (Miralax Powder Packet) 17 gm DAILY PRN PO 01/16/18 10:00 02/15/18 09:59 Insulin Aspart (novoLOG ASPART) SLIDING SCALE If C... ACHS SC 01/16/18 11:00 02/15/18 10:59 Glucose (Glucose 40% Gel) 15-30 GRAMS 15 GRAMS... UD PRN PO 01/16/18 10:15 02/15/18 10:14 Glucose (Glucose Chew Tab) 4-8 Tablets 4 Tabl... UD PRN PO 01/16/18 10:15 02/15/18 10:14 Dextrose (Dextrose 50% 50ML Syringe) 25-50ML OF 50% DW IV FOR... UD PRN IV 01/16/18 10:15 02/15/18 10:14 Glucagon (Glucagon Inj) 1 mg UD PRN SQ 01/16/18 10:15 02/15/18 10:14 Atorvastatin Calcium (Lipitor Tab) 10 mg DAILY PO 01/17/18 09:00 02/16/18 08:59 Levothyroxine Sodium (Synthroid Tab) 200 mcg DAILYBB PO 01/17/18 06:30 02/16/18 06:29 Aspirin (Ecotrin Tab) 81 mg QAM PO 01/17/18 09:00 02/16/18 08:59 Lisinopril (Zestril Tab) 10 mg QAM PO 01/16/18 11:45 02/15/18 11:44 Sodium Chloride 1,000 ml @ 80 mls/hr [id number] IV 01/16/18 11:45 01/17/18 00:14 Miscellaneous Information (Consult Glycemic Management Pharmacy) 1 ea UD PRN N/A 01/16/18 11:51 02/15/18 11:50 Ketorolac Tromethamine (Toradol Inj) 15 mg Q6H PRN IV 01/16/18 12:00 01/21/18 11:59 01/16/18 12:21 15 MG Insulin Glargine (Lantus Solostar Pen) SEE PROTOCOL TEXT DAILY SC 01/17/18 09:00 02/16/18 08:59 Insulin Aspart (novoLOG ASPART) SLIDING SCALE If C... TODAY@0000,0400 VT 01/17/18 00:00 01/17/18 04:01 Insulin Glargine (Lantus Solostar Pen) SEE PROTOCOL TEXT TODAY@2100 VT 01/16/18 21:00 01/16/18 23:59 Physical Exam Vital Signs (Past 24 Hrs): Date Time Temp Pulse Resp B/P (MAP) Pulse Ox O2 Delivery O2 Flow Rate FiO2 01/16/18 11:31 36.8 68 16 158/89 93 Room Air 01/16/18 10:33 147/37 01/16/18 10:31 67 28 97 01/16/18 10:12 149/87 01/16/18 10:10 /92 01/16/18 10:01 67 18 96 01/16/18 09:31 74 22 97 01/16/18 09:21 90 18 154/103 97 Room Air 01/16/18 09:21 154/103 01/16/18 09:01 67 24 98 01/16/18 08:31 88 21 97 01/16/18 08:26 93 21 01/16/18 08:16 170/76 01/16/18 07:34 81 20 154/93 97 Room Air 01/16/18 07:33 154/93 01/16/18 07:26 80 21 97 01/16/18 07:05 97 Room Air 01/16/18 06:56 81 21 97 01/16/18 06:37 82 01/16/18 06:32 176/83 01/16/18 06:31 36.7 91 18 176/83 98 Room Air Physical Exam: Constitutional: appearance nourished, healthy and obese Ears, Nose, Mouth and Throat: mucous membranes moist, no injection and skin normal, eyes normal Cardiovascular: normal S-1 and S-2 and regular rate and rhythm Respiratory: clear to auscultation (CTA) and no rales, rhonchi or wheeze Musculoskeletal: no peripheral edema and good distal pulses Skin: no stigmata of neurocutaneous disease noted and normal and intact Eyes: extraocular muscles intact (EOMI) and pupils equal, round and reactive to light (PERRL), miotic NEUROLOGIC EXAMINATION: Mental status: Alert and interactive Oriented [facility], 2018, does not know the season, can say no ifs ands or buts, closes eye, sticks out tongue, points to ceiling with left hand Oriented to person Speech fluent with no evidence of aphasia Cranial Nerves smile eye brow raise symmetric, tongue midline Reflexes: Deep tendon reflexes were symmetrical and graded 2/5. Plantar responses were flexor. Sensory: no deficit to vibration, GT proprioception intact, cool touch decrease right inner LE Coordination: romberg absent with eyes closed dysmetric on right with finger to nose, slowed with rapid hand movement Gait/Stance: Posture stands without assistance, repositions with no assistance Motor: slight drift on right Strength: right UE hand rn transport, biceps triceps 4/5, left hand rn transport biceps triceps 5/5, deltoid bilaterally 5/5, hip flex 5/5, plantar flex ext 5/5 Laboratory Results Past 24 Hours: 01/16/18 06:40 Red Blood Count 4.14, Mean Corpuscular Volume 82.6, Mean Corpuscular Hemoglobin 26.6, Mean Corpuscular Hemoglobin Concent 32.2, Mean Platelet Volume 10.9, Neutrophils (%) (Auto) 57.6, Lymphocytes (%) (Auto) 29.5, Monocytes (%) (Auto) 8.0, Eosinophils (%) (Auto) 4.4, Basophils (%) (Auto) 0.2, Neutrophils # (Auto) 5.39, Lymphocytes # (Auto) 2.76, Monocytes # (Auto) 0.75, Eosinophils # (Auto) 0.41, Basophils # (Auto) 0.02 01/16/18 06:40 Test 01/16/18 06:40 01/16/18 07:30 01/16/18 11:41 White Blood Count 9.36 K/uL (4.8-10.8) Red Blood Count 4.14 M/uL (4.2-5.4) Hemoglobin 11.0 g/dL (12.0-16.0) Hematocrit 34.2 % (37-47) Mean Corpuscular Volume 82.6 fL (80-100) Mean Corpuscular Hemoglobin 26.6 pg (25-34) Mean Corpuscular Hemoglobin Concent 32.2 g/dl (32-36) Platelet Count 422 K/uL (130-400) Mean Platelet Volume 10.9 fL (7.4-10.4) Neutrophils (%) (Auto) 57.6 % Lymphocytes (%) (Auto) 29.5 % Monocytes (%) (Auto) 8.0 % Eosinophils (%) (Auto) 4.4 % Basophils (%) (Auto) 0.2 % Neutrophils # (Auto) 5.39 K/uL (1.4-6.5) Lymphocytes # (Auto) 2.76 K/uL (1.2-3.4) Monocytes # (Auto) 0.75 K/uL (0.11-0.59) Eosinophils # (Auto) 0.41 K/uL (0-0.5) Basophils # (Auto) 0.02 K/uL (0-0.2) RDW Standard Deviation 45.8 fL (36.4-46.3) RDW Coefficient of Variation 15.1 % (11.5-14.5) Immature Granulocyte % (Auto) 0.3 % Immature Granulocyte # (Auto) 0.03 K/uL (0.00-0.02) Erythrocyte Sedimentation Rate 49 mm/hr (0-21) Prothrombin Time 9.8 SECONDS (9.0-12.0) Prothromb Time International Ratio 0.9 (0.9-1.1) Activated Partial Thromboplast Time 21.9 SECONDS (21.0-31.0) Partial Thromboplastin Ratio 0.8 Anion Gap 9.0 mmol/L (3-11) Est Creatinine Clear Calc Drug Dose 82.0 ml/min Estimated GFR () 91.3 Estimated GFR (Non- 78.8 BUN/Creatinine Ratio 14.0 (10-20) Estimated Average Glucose 258 mg/dl Hemoglobin A1c 10.6 % (4.5-5.6) Calcium Level 8.8 mg/dl (8.5-10.1) Magnesium Level 1.7 mg/dl (1.8-2.4) Total Creatine Kinase 45 U/L (26-192) Creatine Kinase MB < 0.5 ng/ml (0.5-3.6) Creatine Kinase MB Ratio (0-3.0) Troponin I < 0.015 ng/ml (0-0.045) C-Reactive Protein 0.89 mg/dl (0-0.29) Thyroid Stimulating Hormone (TSH) 2.880 uIu/ml (0.300-4.500) Human Chorionic Gonadotropin, Qual NEG (NEG) Bedside Prothrombin Time INR 1.1 (0.9-1.1) Bedside Glucose 286 mg/dl (70-90) Imaging CT head- No acute intracranial findings CXR- No active disease in the chest. MRI brain combo- Numerous small acute infarcts within the left cerebral hemisphere and a small acute infarct within the posterior right parietal lobe. The findings suggest an embolic event. No significant mass effect and no hemorrhage. Several old right-sided infarcts. carotid doppler- Mild to moderate plaque within the proximal left internal carotid artery with normal peak systolic velocity but elevated end-diastolic velocity and spectral broadening. This may reflect an approximate 50% stenosis. A CTA of the neck might be considered for further evaluation. TTE-Normal LV chamber size with mild concentric LVH. * Normal LV systolic function, EF 60-65%. * No segmental left ventricular wall motion abnormalities are noted. * Grade I diastolic dysfunction. * Aortic valve sclerosis mild, without significant aortic valvular stenosis. * Intact interatrial septum. Impression 52 year old with headache and right arm numbness, weakness, Plan 1. start aspirin 81 mg and plavix 75 mg unless some contra indication 2. optimize HTN, DL, DM, LDL <70 3. PT/OT speech for discharge needs 4. TTE- no ASD 5. MRI with and without brain - previous infarcts on right acute scattered infarcts on the left. 6. carotid doppler- Mild to moderate plaque within the proximal left internal carotid artery with normal peak systolic velocity but elevated end-diastolic velocity and spectral broadening. This may reflect an approximate 50% stenosis. 7. cardiology for OP monitoring if no irregular HR seen with monitoring 8. discussed compliance of medication with patient she voiced understanding 9. CTA for better definition of ICA and possible narrowing 10. hypercoag studies done on admission 01/09/18 all normal studies I have seen and discussed above patient with Dr Lesa Ortega, neurology Pt seen and examined, No hx of migraine, Prior radiographic cortical R hemispheric infarct. Pt with multiple vasc risk factors, some medication noncompliance. Yesterday difficult to describe difficulty with R side and some time later L sided headache. No vis or speech sx. Sx became more impressive this am. MRI shows L MCA cortical acute infarct. Carotid us neg, TTE no obvious source. Pt in NSR. Pt has had neg hypercoag [place] within the last year bc of possible PE. Exam notable for nml speech, language, poss R noncongruent hemianopsia. Mild RUE RLE weakness without sensory loss. Mild clumsiness RUE. Impr poss embolic infarct. Rec monitoring for afib including outpt. CTA head and neck. DERREK, asa, plavix. Permissive htn. Risk factor modification. DULCE Ortega MD
[2018-01-16] MEDS: LISINOPRIL 10 MG TAB PO SCH (13:41)
--- NOTE | 2018-01-16 13:45 | DIAGNOSTIC IMAGING REPORT ---
CAROTID ARTERY ULTRASOUND CLINICAL HISTORY: Stroke sx COMPARISON STUDY: None. TECHNIQUE: Real-time, grayscale, and color Doppler sonography of the carotid and vertebral arteries was performed. Images were viewed in the transverse and longitudinal planes. FINDINGS: There is mild atherosclerotic plaque. Velocity measurements are listed below. COMMON CAROTID PEAK SYSTOLIC VELOCITY (CM/S): RIGHT 88 LEFT 76 ICA PEAK SYSTOLIC VELOCITY (CM/S): RIGHT 64 LEFT 120 The systolic ratios between the internal to common carotid arteries are normal. The end-diastolic velocity within the left internal carotid artery was elevated at 50 cm/s. Spectral broadening was noted. Antegrade flow is seen in the vertebral arteries. The external carotid arteries are patent. Blood pressure was not obtained due to IV. IMPRESSION: Mild to moderate plaque within the proximal left internal carotid artery with normal peak systolic velocity but elevated end-diastolic velocity and spectral broadening. This may reflect an approximate 50% stenosis. A CTA of the neck might be considered for further evaluation. Electronically signed by: Chung Chau M.D. 01/16/2018 1:44 PM Dictated Date/Time: 01/16/2018 1:39 PM
--- NOTE | 2018-01-16 14:44 | Progress Note ---
Progress Note Date of Service Jan 16, 2018. Progress Note Attending note: MRI of brain with and without contrast report reviewed Shows numerous small acute infarct within the left cerebral hemisphere and a small acute infarct within the posterior right parietal lobe. These findings suggest an embolic event. No significant significant mass effect and no hemorrhage. Several old right-sided infarcts. Patient is already on aspirin, added Plavix, Patient evaluated by neurology recommend CTA of neck to assess for 50% carotid narrowing on the left side Statin dose increased to 80 mg at bedtime to optimize high intensity statin treatment in the setting of acute CVA continue telemetry monitoring to assess for arrhythmia/A. fib patient will need outpatient cardiology follow-up and Zio patch if no arrhythmia noted in this admission.
[2018-01-16] MEDS ORDERED: CLOPIDOGREL BISULFATE 75 MG TAB PO ONE (15:00)
[2018-01-16] MEDS ORDERED: OPTIRAY 320 IV PRN (15:00)
[2018-01-16] MEDS: INSULIN ASPART 100 UNITS/ML 3 ML PEN SC SCH ×4 (15:11→23:48)
[2018-01-16] MEDS ORDERED: PERFLUTREN LIPID MICROSPHERE (DEFINITY) IV ONE (15:13)
--- NOTE | 2018-01-16 15:56 | ECHOCARDIOGRAM REPORT ---
*NOTICE TO RECEIVING LIBERTARIAN AGENCY This information is strictly Confidential and protected under [place] law. [place] law prohibits you from making any further disclosure of this information unless further disclosure is expressly permitted by the written consent of the person to whom it pertains or is authorized by law. A general authorization for the release of medical or other information is not sufficient for this purpose. Hospital accepts no responsibility if the information is made available to any other person, INCLUDING THE PATIENT. Interpretation Summary * Name: DONNA FARLEY Study Date: 01/16/2018 02:09 PM BP: 158/89 mmHg * Patient Location: [facility]\S\N282\S\1 HR: 68 * : 1965 (M/d/yyyy) Gender: Female Height: 60 in * Age: 52 yrs Ethnicity: CA Weight: 211 lb * Ordering Physician: Irene Luna * Referring Physician: Self, Referred * Performed By: Yvonne Juarez RDCS * * Reason For Study: Stroke Symptoms * BSA: 1.9 m2 * -- Conclusions -- * Normal LV chamber size with mild concentric LVH. * Normal LV systolic function, EF 60-65%. * No segmental left ventricular wall motion abnormalities are noted. * Grade I diastolic dysfunction. * Aortic valve sclerosis mild, without significant aortic valvular stenosis. * Intact interatrial septum. Procedure Details * A complete two-dimensional transthoracic echocardiogram was performed (2D, M-mode, Doppler and color flow Doppler). * The study was technically difficult. * The study was technically difficult, but visualization was adequate with the administration of Definity ultrasound contrast. * A saline contrast injection was performed to assess for cardiac shunting. * The injection was performed through an intravenous line in the left arm. * The attending nurse who injected the saline contrast was Bev Duran RN. * A total of 10 cc of agitated saline was given. * A contrast injection of Definity was performed to improve assessment of LV function. * Contrast was injected into an intravenous site in the left arm. * One vial of Definity ultrasound contrast was diluted in normal saline to a total volume of 10 ml. A total of '1' ml of solution was administered during imaging. * Lot # [id number] of Definity utilized for procedure. * Expiration date . * The attending nurse who injected the contrast agent was Bev Duran RN. Left Ventricle * The left ventricle is normal in size. * There is mild concentric left ventricular hypertrophy. * Ejection Fraction = 60-65%. * Left ventricular systolic function is normal. * No segmental left ventricular wall motion abnormalities are noted. * The left ventricular wall motion is normal. Right Ventricle * The right ventricular cavity size is normal (basal dimension <4.2 cm in right ventricular apical 4-chamber view). * The right ventricular systolic function is normal as assessed by tricuspid annular plane systolic excursion (TAPSE) (normal >1.5 cm). Atria * The left atrial size is normal. * Right atrium not well visualized. * The interatrial septum is intact with no evidence for an atrial septal defect. Mitral Valve * There is mild mitral annular calcification. * The mitral valve leaflets appear thickened, but open well. * There is no mitral valve stenosis. * There is no mitral regurgitation noted. Tricuspid Valve * The tricuspid valve is normal in structure and function. Aortic Valve * The aortic valve is trileaflet. * Aortic valve sclerosis mild, without significant aortic valvular stenosis. * There is no significant aortic regurgitation. Pulmonic Valve * The pulmonary valve is not well seen, but the Doppler examination is normal without significant regurgitation or stenosis. Great Vessels * The aortic root is normal size. Pericardium/Pleural * There is no pericardial effusion. Left Ventricular Diastolic Function * Grade I diastolic dysfunction, (abnormal relaxation pattern). MMode 2D Measurements and Calculations IVSd 1.2 cm IVSs 1.4 cm LVIDd 4.2 cm LVIDs 2.6 cm LVPWd 0.97 cm LVPWs 1.7 cm IVS/LVPW 1.3 FS 38.2 % EDV(Teich) 79.2 ml ESV(Teich) 24.7 ml EF(Teich) 68.8 % EDV(cubed) 74.8 ml ESV(cubed) 17.6 ml EF(cubed) 76.4 % % IVS thick 15.5 % % LVPW thick 70.7 % LV mass(C)d 159.9 grams LV mass(C)dI 83.7 grams/m\S\2 LV mass(C)s 140.4 grams LV mass(C)sI 73.5 grams/m\S\2 SV(Teich) 54.5 ml SI(Teich) 28.5 ml/m\S\2 SV(cubed) 57.2 ml SI(cubed) 29.9 ml/m\S\2 Ao root diam 2.7 cm Ao root area 5.5 cm\S\2 ACS 1.8 cm LA dimension 2.8 cm LA/Ao 1.1 LVAd ap4 26.4 cm\S\2 LVLd ap4 7.8 cm EDV(MOD-sp4) 75.9 ml EDV(sp4-el) 76.0 ml LVAs ap4 10.5 cm\S\2 LVLs ap4 5.3 cm ESV(MOD-sp4) 18.1 ml ESV(sp4-el) 17.5 ml EF(MOD-sp4) 76.2 % EF(sp4-el) 77.0 % LVAd ap2 27.2 cm\S\2 LVLd ap2 7.8 cm EDV(MOD-sp2) 79.1 ml EDV(sp2-el) 80.6 ml LVAs ap2 14.8 cm\S\2 LVLs ap2 6.0 cm ESV(MOD-sp2) 31.3 ml ESV(sp2-el) 30.9 ml EF(MOD-sp2) 60.4 % EF(sp2-el) 61.7 % LVLd %diff 0.19 % EDV(MOD-bp) 77.5 ml LVLs %diff 11.5 % ESV(MOD-bp) 25.2 ml EF(MOD-bp) 67.5 % SV(MOD-sp4) 57.8 ml SI(MOD-sp4) 30.3 ml/m\S\2 SV(MOD-sp2) 47.8 ml SI(MOD-sp2) 25.0 ml/m\S\2 SV(MOD-bp) 52.3 ml SI(MOD-bp) 27.4 ml/m\S\2 SV(sp4-el) 58.5 ml SI(sp4-el) 30.7 ml/m\S\2 SV(sp2-el) 49.7 ml SI(sp2-el) 26.0 ml/m\S\2 Doppler Measurements and Calculations MV E max ezra 103.2 cm/sec MV A max ezra 113.3 cm/sec MV E/A 0.91 MV dec time 0.30 sec Ao V2 max 189.4 cm/sec Ao max PG 14.3 mmHg Ao max PG (full) 7.2 mmHg LV V1 max PG 7.2 mmHg LV V1 max 134.0 cm/sec PA V2 max 80.0 cm/sec PA max PG 2.6 mmHg TR max ezra 228.7 cm/sec
[2018-01-16 16:31] VITALS: BMI 39.6
[2018-01-16 19:52] VITALS: BP 147/77; PULSE 70; TEMP 36.4; O2SAT 98
[2018-01-16] MEDS ORDERED: INSULIN GLARGINE SOLOSTAR 100 UNITS/ML 3 ML PEN SC SCH ×2 (21:00)
[2018-01-16] MEDS: ATORVASTATIN 40 MG TAB PO SCH (21:04)
--- NOTE | 2018-01-16 21:55 | DIAGNOSTIC IMAGING REPORT ---
NECK ANGIO WITH CONTRAST, ANGIOGRAPHY HEAD COMBO CLINICAL HISTORY: 52 years-old Female presents with acute strokelike symptoms, carotid stenosis and right upper extremity numbness COMPARISON STUDY: Carotid ultrasound same day, brain MRI 01/16/2018, CTA of the chest 01/09/2018 TECHNIQUE: Following the IV administration of 119 of Optiray 320, CT angiogram of the head and neck was performed from the aortic arch to the skull vertex. Images are reviewed in the axial, sagittal, and coronal planes. 3-D MIPS images are created and assessed. IV contrast was administered without complication. All measurements were calculated based on NASCET criteria. A noncontrast CT of the head was also obtained. A dose lowering technique was utilized adhering to the principles of ALARA. CT DOSE: 1119.55 mGy.cm FINDINGS: CTA HEAD AND NECK: A bovine aortic arch is noted with patency of the bilateral imaged subclavian arteries. The right common and internal carotid arteries are widely patent. There is minimal atheromatous plaquing involving the proximal and mid portions of the right internal carotid artery causing less than 50% narrowing. There is a linear soft tissue attenuating eccentrically located filling defect noted within the left carotid bulb which is seen draped over the carotid bifurcation extending into the proximal portions of the left internal and external carotid arteries measuring up to 1.0 cm in length. This causes approximately 50% narrowing of the proximal left internal carotid artery. Atheromatous plaquing at the bilateral carotid terminus is noted with less than 50% luminal stenosis. The bilateral middle and anterior cerebral arteries appear widely patent. The anterior communicating artery is also within normal limits and unremarkable. The bilateral vertebral arteries are codominant and appear to be within normal limits. The basilar artery and bilateral posterior cerebral arteries are widely patent. No high-grade stenosis, aneurysm or dissection. The cerebral venous sinuses appear patent. Lung apices appear clear. Soft tissues are unremarkable. Nonenlarged mildly prominent lymph nodes about the neck are likely physiologic. The bones appear intact. Straightening of the normal cervical lordosis. CT HEAD: There is no acute intracranial hemorrhage, midline shift, abnormal extra-axial collections, hydrocephalus or intracranial mass. Ill-defined area of low-attenuation within the posterior left temporal lobe correlates with area of restricted diffusion seen on comparison brain MRI. Additionally, there are scattered ill-defined areas of low-attenuation throughout the left parietal lobe to the vertex, also correlating with areas of acute infarction. No calvarial fracture. Mastoid air cells and middle ear cavities are clear. Paranasal sinuses are also generally clear. Orbits are unremarkable. IMPRESSION: 1. Linear soft tissue attenuating eccentrically located filling defect within the left carotid bulb draped over the carotid bifurcation extending into the proximal portions of the left internal and external carotid arteries measuring up to 1.0 cm in length causes approximately 50% narrowing of the proximal left internal carotid artery suggesting a free floating thrombus. Echocardiogram may be considered to exclude cardiac etiology. 2. No aneurysm, dissection or proximal branch occlusion identified. 3. Multiple small acute infarctions are again noted throughout the left cerebral hemisphere, better seen on comparison brain MRI of same day. No acute intracranial hemorrhage or midline shift. The above report was generated using voice recognition software. It may contain grammatical, syntax or spelling errors. Electronically signed by: Mir Zapata M.D. 01/16/2018 9:54 PM Dictated Date/Time: 01/16/2018 9:22 PM
[2018-01-16 23:48] VITALS: BP 161/73; PULSE 71; TEMP 36.9; O2SAT 96
[2018-01-17] VITALS (8 sets, daily range): BP systolic 112–139; BP diastolic 68–79; PULSE 69–78; TEMP 36.3–37.1; O2SAT 93–97
[2018-01-17] MEDS: ACETAMINOPHEN 325 MG TAB PO PRN ×2 (01:36→18:41)
[2018-01-17] MEDS: INSULIN ASPART 100 UNITS/ML 3 ML PEN SC SCH ×5 (03:35→20:53)
[2018-01-17] MEDS: LEVOTHYROXINE 200 MCG TAB PO SCH (06:08)
[2018-01-17 07:19] LABS: CALCIUM 8.5 mg/dl (8.5-10.1); CREATININE 0.85 mg/dl (0.60-1.20); POTASSIUM 4.4 mmol/L (3.5-5.1)
[2018-01-17] MEDS: LISINOPRIL 10 MG TAB PO SCH (08:20)
[2018-01-17] MEDS: ASPIRIN 81 MG ECTAB PO SCH (08:20)
[2018-01-17] MEDS: CLOPIDOGREL BISULFATE 75 MG TAB PO SCH (08:21)
[2018-01-17] MEDS: INSULIN GLARGINE SOLOSTAR 100 UNITS/ML 3 ML PEN SC SCH (08:32)
[2018-01-17 08:52] LABS: HEMATOCRIT 31.1 % (37-47); MEAN CELL VOLUME 82.9 fL (80-100); MEAN CORPUSCULAR HEMOGLOBIN 26.7 pg (25-34); MEAN CORPUSCULAR HGB CONC 32.2 g/dl (32-36); MEAN PLATELET VOLUME 10.4 fL (7.4-10.4); PLATELET COUNT 391 K/uL (130-400); RED CELL DISTRIBUTION WIDTH CV 15.3 % (11.5-14.5); RED CELL DISTRIBUTION WIDTH SD 46.5 fL (36.4-46.3); WHITE BLOOD COUNT 9.18 K/uL (4.8-10.8)
[2018-01-17] MEDS ORDERED: LISINOPRIL 10 MG TAB PO SCH (09:00)
[2018-01-17] MEDS ORDERED: ATORVASTATIN 10 MG TAB PO SCH (09:00)
--- NOTE | 2018-01-17 09:40 | DIAGNOSTIC IMAGING REPORT ---
HEAD WITHOUT CONTRAST (CT) CLINICAL HISTORY: 52 years-old Female presenting with fu l mca infarct, r/o hemor transf. TECHNIQUE: Multidetector CT imaging of the head was performed without the use of intravenous contrast. IV contrast: None. A dose lowering technique was used consistent with the principles of ALARA (as low as reasonably achievable). COMPARISON: 01/16/2018. CT DOSE (mGy.cm): The estimated cumulative dose is 537.48 mGy.cm. FINDINGS: Documentation Consultant topogram: Unremarkable. Ventricles and sulci normal in size. Slight asymmetric sulcal effacement over the posterior left temporal, occipital, and parietal regions. No mass effect or midline shift. No hemorrhage or acute territorial infarct. No extra-axial fluid collection. Petrosal thickening in the ethmoid air cells. Calvarium intact. IMPRESSION: 1. Subtle findings of asymmetric sulcal effacement along the left posterior temporal, occipital, and parietal regions consistent with known embolic infarcts in the left middle cerebral artery territory. No hemorrhagic transformation. Electronically signed by: David Hood M.D. 01/17/2018 9:38 AM Dictated Date/Time: 01/17/2018 9:34 AM
--- NOTE | 2018-01-17 10:22 | PROGRESS NOTE ---
DATE: 01/17/2018 SUBJECTIVE: Mrs. Lambert is being seen in followup of a left MCA infarction, which is cortical. Radiographically, the radiologist felt there may also be an acute infarct in the right posterior parietal lobe. Her transthoracic echocardiography did not reveal an embolic source. She has previously had a hypercoagulable state workup that I reviewed and was negative. Factor V Leiden mutation, prothrombin gene mutation, anticardiolipin antibody, protein C and S, antithrombin III were all negative. Her CTA of the head suggests a linear soft tissue focus, eccentrically located filling defect within the left carotid bulb draped over the bifurcation extending into the proximal portion of the left internal and external measuring up to 1 cm in length causing an approximately 50% narrowing in the proximal left internal carotid suggestive of a free-floating thrombus. Echocardiogram may be considered to rule out cardiac etiology. Multiple acute infarction noted in the left cerebral hemisphere. No acute intracranial hemorrhage or shift. No aneurysm, dissection or proximal branch occlusion is noted. LABORATORY WORK: Notable for a sed rate of 49. Her LDL was 59. Her triglycerides are 247. The patient is doing well. She has minor residual headache. No new neurologic symptoms have been noted. PHYSICAL EXAMINATION: VITAL SIGNS: 36.8, 76, 18, 113/68, 93%. NEUROLOGIC: She is alert, normal speech and language. Her affect is mildly flat, but she asked many appropriate questions. Naming, 3-step commands are normal. There is a non-congruent right hemianopsia in the right eye. There is no facial asymmetry, no dysarthria. The right upper and right lower about 4 with a little bit of a drift and decreased right rapid alternating movements. There is almost a little bit of episodic dyscontrol or alien limb phenomenon of the RUE, which is very minimal. There is decreased light touch in the right upper extremity. Symmetric reflexes. Query right toe upgoing. IMPRESSION: Left middle cerebral artery infarction. With this event, there is also some new ischemia in the right hemisphere suggestive of an embolic source. Prior hx of radiographic R parietal cortical infarct. PLAN: CT of the head noncontrast now provided no large or hemorrhagic stroke. Would recommend heparin without bolus followed by anticoagulants, which I would use for at least 3-6 months, but perhaps lifetime depending on what is found radiographically and on echo. The patient wonders if clot retrieval is an option. At this point, the patient is neurologically stable without any recurrent events. We have planned to place her on heparin. I think clot retrieval with the inherent manipulation of the clot as well as the catheter, it is more likely to cause a recurrent stroke. That having been said, if she had recurrent ischemia in spite of best medical therapy, certainly we could consider transfer to a tertiary care center. A transesophageal echo is recommended. I have ordered an CLINTON, an RPR and a CRP to evaluate for other etiologies including vasculopathy. Continued risk factor modification is appropriate. Discussed management at length with pt, and answered questions. Discussed pt with Dr Hair. DULCE Ortega MD [facility]
--- NOTE | 2018-01-17 10:35 | Cardiology Consultation ---
Cardiology Consultation Date of Service Jan 17, 2018. Cardiology Consultation Indication: Consultation for an embolic stroke History: This is a 52-year-old diabetic, hypertensive female with a history of hypercholesterolemia who presented with an embolic stroke. We have been asked to see her in regard to the possibility of a cardiac arrhythmia as an etiology of her embolic stroke. She did have a transthoracic echocardiogram this admission that failed to show any cardiac source of emboli. Thus far on the telemetry she has had no significant arrhythmias. She has no prior history of heart disease. She denies myocardial infarction, angina, congestive heart failure or cardiac arrhythmias. She admits to having some heart palpitations dating back several years. She has had no prolonged episodes of tachycardia. She denies dizziness or lightheadedness. She had a carotid ultrasound that failed to show significant carotid disease however, she is to have additional imaging performed. Currently she is on aspirin and Plavix. Allergies: No known medical allergies Current Inpatient Medications Medications (Trade) Dose Ordered Sig/Sunny Route Start Time Stop Time Status Last Admin Dose Admin Miscellaneous Information (Pharmacist Discharge Med Rec Consult) 1 ea UD PRN N/A 01/16/18 10:00 02/15/18 09:59 Acetaminophen (Tylenol Tab) 650 mg Q4H PRN PO 01/16/18 10:00 02/15/18 09:59 01/17/18 01:36 650 MG Nitroglycerin (Nitrostat Tab) 0.4 mg UD PRN SL 01/16/18 10:00 02/15/18 09:59 Polyethylene (Miralax Powder Packet) 17 gm DAILY PRN PO 01/16/18 10:00 02/15/18 09:59 Insulin Aspart (novoLOG ASPART) SLIDING SCALE If C... ACHS SC 01/16/18 11:00 02/15/18 10:59 01/17/18 08:32 7 UNITS Glucose (Glucose 40% Gel) 15-30 GRAMS 15 GRAMS... UD PRN PO 01/16/18 10:15 02/15/18 10:14 Glucose (Glucose Chew Tab) 4-8 Tablets 4 Tabl... UD PRN PO 01/16/18 10:15 02/15/18 10:14 Dextrose (Dextrose 50% 50ML Syringe) 25-50ML OF 50% DW IV FOR... UD PRN IV 01/16/18 10:15 02/15/18 10:14 Glucagon (Glucagon Inj) 1 mg UD PRN SQ 01/16/18 10:15 02/15/18 10:14 Levothyroxine Sodium (Synthroid Tab) 200 mcg DAILYBB PO 01/17/18 06:30 02/16/18 06:29 01/17/18 06:08 200 MCG Aspirin (Ecotrin Tab) 81 mg QAM PO 01/17/18 09:00 02/16/18 08:59 01/17/18 08:20 81 MG Lisinopril (Zestril Tab) 10 mg QAM PO 01/16/18 11:45 02/15/18 11:44 01/17/18 08:20 10 MG Miscellaneous Information (Consult Glycemic Management Pharmacy) 1 ea UD PRN N/A 01/16/18 11:51 02/15/18 11:50 Ketorolac Tromethamine (Toradol Inj) 15 mg Q6H PRN IV 01/16/18 12:00 01/21/18 11:59 01/16/18 19:36 15 MG Insulin Glargine (Lantus Solostar Pen) SEE PROTOCOL TEXT DAILY SC 01/17/18 09:00 02/16/18 08:59 01/17/18 08:32 25 UNITS Clopidogrel Bisulfate (plAVix TAB) 75 mg QAM PO 01/17/18 09:00 02/16/18 08:59 01/17/18 08:21 75 MG Atorvastatin Calcium (Lipitor Tab) 80 mg HS PO 01/16/18 21:00 02/16/18 08:59 01/16/18 21:04 80 MG Ioversol (Optiray 320) 100 ml UD PRN IV 01/16/18 15:00 01/20/18 14:59 Past medical history: As stated above the patient has a history of diabetes and hypertension. She was recently started on a statin for hypercholesterolemia. She has no prior history of heart disease or previous stroke. Social history: Patient is currently a non-smoker. Family medical history: Noncontributory General: The patient denies weight change, night sweats, fever, chills. Head: The patient denies headache and prior head trauma. Cardiovascular: The patient denies chest pain or chest discomfort, dyspnea on exertion, palpitations, PND, orthopnea, edema, spontaneous shortness of breath, syncope and near syncope. Pulmonary: The patient denies cough, wheeze, pleurisy, hemoptysis, sputum, and excessive snoring. Gastrointestinal: The patient denies nausea, vomiting, diarrhea, constipation, bloating, hematemesis, hematochezia, and abdominal pain. Skin: The patient denies diaphoresis and rash. Musculoskeletal: The patient denies joint pain, joint swelling, myalgia, back pain, neck pain and prior injuries. Neurological: The patient denies prior stroke and seizures Vital Signs Past 12 Hours Date Time Temp Pulse Resp B/P (MAP) Pulse Ox O2 Delivery O2 Flow Rate FiO2 01/17/18 08:00 Room Air 01/17/18 07:39 36.8 76 18 113/68 (83) 93 Room Air 01/17/18 04:00 Room Air 01/17/18 03:00 36.8 77 20 112/70 (84) 94 Room Air 01/17/18 00:00 Room Air 01/16/18 23:48 36.9 71 20 161/73 (102) 96 Room Air General Appearance: Alert and Oriented x3. NAD. Head: Normocephalic Atraumatic. Eyes: PERRLA, EOMI, conjunctiva and sclera clear Neck: Supple. No carotid bruits noted. No JVD. No HJD. Respiratory: Breath sounds clear to auscultation bilaterally. No w/r/r. Cardiovascular: Reg rate and rhythm. S1 and S2 noted. No murmurs, rubs, gallops. PMI non displace. Abdomen: Normal bowel sounds, soft nontender. no abdominal bruits. Extremities: No edema, no clubbing or cyanosis. distal pulses 2/4 bilaterally. Neuro: No focal deficits. Psychiatric: Normal affect. Last 24 Hours Test 01/16/18 11:41 01/16/18 16:33 01/16/18 19:15 01/16/18 20:56 Bedside Glucose 286 mg/dl 292 mg/dl 120 mg/dl Urine Color YELLOW Urine Appearance CLEAR Urine pH 5.0 Urine Specific [place] 1.043 Urine Protein NEG Urine Glucose (UA) 3+ Urine Ketones TRACE Urine Occult Blood NEG Urine Nitrite NEG Urine Bilirubin NEG Urine Urobilinogen NEG Urine Leukocyte Esterase NEG Urine Opiates Screen POS Urine Methadone, Qualitative NEG Urine Barbiturates NEG Urine Phencyclidine (PCP) Level NEG Ur Amphetamine/Methamphetamine NEG MDMA (Ecstasy) Screen NEG Urine Benzodiazepines Screen NEG Urine Cocaine Metabolite NEG Urine Marijuana (THC) NEG Test 01/16/18 23:46 01/17/18 03:33 01/17/18 06:16 01/17/18 08:11 Bedside Glucose 129 mg/dl 138 mg/dl Sodium Level 135 mmol/L Potassium Level 4.4 mmol/L Chloride Level 105 mmol/L Carbon Dioxide Level 23 mmol/L Anion Gap 7.0 mmol/L Blood Urea Nitrogen 14 mg/dl Creatinine 0.85 mg/dl Est Creatinine Clear Calc Drug Dose 78.3 ml/min Estimated GFR () 91.3 Estimated GFR (Non- 78.8 BUN/Creatinine Ratio 16.1 Random Glucose 149 mg/dl Calcium Level 8.5 mg/dl Magnesium Level 2.1 mg/dl C-Reactive Protein 1.31 mg/dl Triglycerides Level 247 mg/dl Cholesterol Level 147 mg/dl HDL Cholesterol 39 mg/dl LDL Cholesterol, Calculated 59 mg/dl VLDL Cholesterol, Calculated 49 mg/dl Cholesterol/HDL Ratio 3.8 White Blood Count 9.18 K/uL Red Blood Count 3.75 M/uL Hemoglobin 10.0 g/dL Hematocrit 31.1 % Mean Corpuscular Volume 82.9 fL Mean Corpuscular Hemoglobin 26.7 pg Mean Corpuscular Hemoglobin Concent 32.2 g/dl RDW Standard Deviation 46.5 fL RDW Coefficient of Variation 15.3 % Platelet Count 391 K/uL Mean Platelet Volume 10.4 fL Test 01/17/18 08:21 01/17/18 09:13 Bedside Glucose 174 mg/dl Echocardiogram: -- Conclusions -- * Normal LV chamber size with mild concentric LVH. * Normal LV systolic function, EF 60-65%. * No segmental left ventricular wall motion abnormalities are noted. * Grade I diastolic dysfunction. * Aortic valve sclerosis mild, without significant aortic valvular stenosis. * Intact interatrial septum. Carotid ultrasound: IMPRESSION: Mild to moderate plaque within the proximal left internal carotid artery with normal peak systolic velocity but elevated end-diastolic velocity and spectral broadening. This may reflect an approximate 50% stenosis. A CTA of the neck might be considered for further evaluation. Carotid CTA: IMPRESSION: 1. Linear soft tissue attenuating eccentrically located filling defect within the left carotid bulb draped over the carotid bifurcation extending into the proximal portions of the left internal and external carotid arteries measuring up to 1.0 cm in length causes approximately 50% narrowing of the proximal left internal carotid artery suggesting a free floating thrombus. Echocardiogram may be considered to exclude cardiac etiology. 2. No aneurysm, dissection or proximal branch occlusion identified. 3. Multiple small acute infarctions are again noted throughout the left cerebral hemisphere, better seen on comparison brain MRI of same day. No acute intracranial hemorrhage or midline shift. Impression: 1. Embolic stroke 2. Evidence of thrombus in the left carotid 3. No cardiac source of emboli by transthoracic echocardiogram 4. No evidence of cardiac arrhythmias such as atrial fibrillation thus far on the telemetry. Recommendations: This is a 52-year-old female who had an embolic's stroke in the left hemisphere. She has evidence on a carotid angiogram of a thrombus in the left carotid. I believe that she is best served with anticoagulation if her repeat CT of the brain shows no hemorrhagic transformation. After starting the heparin , I would discontinue the Plavix and keep the patient on 81 mg of aspirin. She eventually will need to be transitioned to warfarin as an outpatient. I would continue to monitor her on the telemetry unit.
[2018-01-17 11:26] LABS: PTT PATIENT 22.6 SECONDS (21.0-31.0)
[2018-01-17] MEDS: KETOROLAC TROMETHAMINE 15 MG/ML VIAL IV PRN (11:56)
[2018-01-17] MEDS: HEPARIN 25,000 UNIT/500ML D5W 500 ML IV PRN ×2 (12:10→19:21)
--- NOTE | 2018-01-17 12:38 | Pharmacy Progress Note ---
Pharmacy Glycemic Short Note 2 Date of Service Jan 17, 2018. OUTPATIENT ANTIDIABETIC REGIMEN: * Glipizide 5mg PO BIDM * Metformin 1,000mg PO BIDM * A1c = 10.6% on 01/16/18 ASSESSMENT: * 52yo T2DM female with poor outpatient control per recent A1c * Goal A1c is <7% based on age/comorbidities and elements of diabetes care scoring scale * Patient is currently receiving an average of ~50 units of insulin per day * 25 units of basal insulin * 25 units of prandial/correctional insulin * BSGs ranging 120 - 292 over the past 24hrs since SQ basal bolus insulin regimen was initiated * Anticipating insulin regimen will need increased slightly for the next 24hrs d /t : * AM Fasting BSG = 149 mg/dl. This is near goal range, Lantus not yet at steady state, will continue current dosing and increase if BSG trends upwards tomorrow * Post-prandial BSGs are elevated/BSGs rise throughout the day therefore Tighten CF/CR PLAN FOR INPATIENT GLYCEMIC CONTROL: * Holding outpatient oral diabetes medications * Basal insulin * Lantus 25 units SQ daily * Will try to keep basal insulin with daily dosing (rather than BID) since basal insulin will be needed at discharge for A1c >10%. * Bolus insulin * NovoLog per scale ACHS or Q6hrs while NPO. Additional checks + coverage at 0000 & 0400 tonight * Goal Range: Low 120 mg/dL - High 160 mg/dL {slightly higher goal range for elevated A1c, pt may feel hypo at otherwise normal A1c) * Correction Factor: 20 mg/dL/unit * Nutritional / Prandial insulin per carb ratio of 1 unit per 6 grams CHO consumed
[2018-01-17] MEDS ORDERED: NURSING VERBAL MED ORDER ONE (13:15)
[2018-01-17] MEDS ORDERED: MoRPHine SULFATE 2 MG/ML CARP IV ONE (13:30)
--- NOTE | 2018-01-17 14:29 | Progress Note ---
Internal Med Progress Note Date of Service: Jan 17, 2018. Provider Documentation: SUBJECTIVE: Seen and examined at bedside Complains of frontal headache which is improving Continues to have RUE numbness Nausea resolved Denies chest pain, SOB, dizziness, abd pain, change in vision No other complaints OBJECTIVE: Vital Signs-as noted below Physical Exam: Vitals signs as noted above General Appearance:Moderately built and nourished, no apparent distress Head: normocephalic, Atraumatic Eyes: normal inspection, EOMI, PERRL Neck: supple, Trachea midline Respiratory/Chest: Normal breath sounds, CTA Cardiovascular: S1, S2, No murmur Abdomen/GI:Soft, Non tender, Bowel sounds present Extremities/Musculoskelatal:normal inspection, no edema Neurologic/Psych:AAOX3, grossly no focal neurological deficits, RUE mild numbness Skin: normal color, warm Lab data as noted below. ASSESSMENT & PLAN: 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 Likely Embolic source MRI Brain suggestive of numerous small acute infarcts within the left cerebral hemisphere and a small acute infarct within the posterior right parietal lobe. CTA: suggestive of possible free floating thrombus in the left carotid bulb ECHO:Aortic valve sclerosis mild, without significant aortic valvular stenosis, Intact interatrial septum. Continue Aspirin, plavix, Statins and started on IV heparin May need long-term Anticoagulation and possible DERREK Continue Neuro checks Appreciate Neurology Input Appreciate Cardiology Input Follow up CLINTON, RPR and CRP DM II Uncontrolled A1C:10.6 Continue ISS, lantus Appreciate Pharmacy help for glycemic control HTN continue lisinopril Hypomagnesemia: replace and monitor Hyperlipidemia: continue statin Hypothyroidism: H/O Goiter S/P thyroidectomy continue levothyroxine DVT Px: On IV heparin Code Status: Full Code Disposition: Monitor In Tele Vital Signs: Date Time Temp Pulse Resp B/P (MAP) Pulse Ox O2 Delivery O2 Flow Rate FiO2 01/18/18 12:30 Room Air 01/18/18 11:38 36.6 71 18 115/68 (84) 97 Room Air 01/18/18 08:30 98 Room Air 01/18/18 07:16 37.1 72 18 101/63 (76) 98 Room Air 01/18/18 04:12 37.2 82 18 139/84 (102) 94 Room Air 01/18/18 04:00 Room Air 3/4/18 00:00 Room Air 01/17/18 23:40 37.1 74 16 129/72 (91) 97 Room Air 01/17/18 23:37 37.1 74 16 129/72 (91) 97 Room Air 01/17/18 20:00 Room Air 01/17/18 19:19 36.6 78 19 117/69 (85) 96 Room Air 01/17/18 16:00 Room Air 01/17/18 15:30 36.9 72 18 125/72 (89) 95 Room Air Lab Results: Results Past 24 Hours Test 01/17/18 16:38 01/17/18 18:18 01/17/18 20:28 01/17/18 23:55 Range/Units Bedside Glucose 272 377 95 70-90 mg/dl Activated Partial Thromboplast Time 28.2 21.0-31.0 SECONDS Partial Thromboplastin Ratio 1.1 Test 01/18/18 01:30 01/18/18 03:53 01/18/18 06:05 01/18/18 07:44 Range/Units Activated Partial Thromboplast Time 51.5 46.2 21.0-31.0 SECONDS Partial Thromboplastin Ratio 2.0 1.8 Bedside Glucose 158 171 70-90 mg/dl White Blood Count 8.25 4.8-10.8 K/uL Red Blood Count 3.62 4.2-5.4 M/uL Hemoglobin 9.6 12.0-16.0 g/dL Hematocrit 29.5 37-47 % Mean Corpuscular Volume 81.5 80-100 fL Mean Corpuscular Hemoglobin 26.5 25-34 pg Mean Corpuscular Hemoglobin Concent 32.5 32-36 g/dl RDW Standard Deviation 45.7 36.4-46.3 fL RDW Coefficient of Variation 15.4 11.5-14.5 % Platelet Count 380 130-400 K/uL Mean Platelet Volume 10.5 7.4-10.4 fL Sodium Level 136 136-145 mmol/L Potassium Level 4.2 3.5-5.1 mmol/L Chloride Level 103 98-107 mmol/L Carbon Dioxide Level 25 21-32 mmol/L Anion Gap 8.0 3-11 mmol/L Blood Urea Nitrogen 11 7-18 mg/dl Creatinine 0.84 0.60-1.20 mg/dl Est Creatinine Clear Calc Drug Dose 79.8 ml/min Estimated GFR () 92.6 Estimated GFR (Non- 79.9 BUN/Creatinine Ratio 13.4 10-20 Random Glucose 141 70-99 mg/dl Calcium Level 8.8 8.5-10.1 mg/dl Magnesium Level 1.8 1.8-2.4 mg/dl Test 01/18/18 11:47 Range/Units Bedside Glucose 205 70-90 mg/dl
[2018-01-17 18:44] LABS: PTT PATIENT 28.2 SECONDS (21.0-31.0)
[2018-01-17] MEDS ORDERED: HEPARIN IV BOLUS 5,000 UNIT in SYRINGE 0 ML IV ONE (19:15)
[2018-01-17] MEDS: ATORVASTATIN 40 MG TAB PO SCH (20:51)
[2018-01-17] MEDS ORDERED: INSULIN HUMAN REGULAR PER UNIT 8 UNITS in SYRINGE 7.92 ML IV SCH (21:15)
[2018-01-18] VITALS (8 sets, daily range): BP systolic 101–163; BP diastolic 63–85; PULSE 60–82; TEMP 36.4–37.2; O2SAT 94–100
[2018-01-18] MEDS: KETOROLAC TROMETHAMINE 15 MG/ML VIAL IV PRN ×2 (00:06→08:37)
[2018-01-18 02:23] LABS: PTT PATIENT 51.5 SECONDS (21.0-31.0)
[2018-01-18] MEDS: INSULIN ASPART 100 UNITS/ML 3 ML PEN SC SCH ×6 (03:56→20:31)
[2018-01-18] MEDS: LEVOTHYROXINE 200 MCG TAB PO SCH (06:03)
[2018-01-18] MEDS: HEPARIN 25,000 UNIT/500ML D5W 500 ML IV PRN ×2 (07:00→16:04)
[2018-01-18 07:09] LABS: HEMATOCRIT 29.5 % (37-47); HEMOGLOBIN 9.6 g/dL (12.0-16.0); MEAN CELL VOLUME 81.5 fL (80-100); MEAN CORPUSCULAR HEMOGLOBIN 26.5 pg (25-34); MEAN CORPUSCULAR HGB CONC 32.5 g/dl (32-36); MEAN PLATELET VOLUME 10.5 fL (7.4-10.4); PLATELET COUNT 380 K/uL (130-400); RED CELL DISTRIBUTION WIDTH CV 15.4 % (11.5-14.5); RED CELL DISTRIBUTION WIDTH SD 45.7 fL (36.4-46.3); WHITE BLOOD COUNT 8.25 K/uL (4.8-10.8)
[2018-01-18 07:13] LABS: PTT PATIENT 46.2 SECONDS (21.0-31.0)
[2018-01-18 07:27] LABS: CALCIUM 8.8 mg/dl (8.5-10.1); CREATININE 0.84 mg/dl (0.60-1.20); POTASSIUM 4.2 mmol/L (3.5-5.1)
[2018-01-18] MEDS ORDERED: HEPARIN IV BOLUS 3,000 UNIT in SYRINGE 0 ML IV ONE (07:45)
[2018-01-18] MEDS: ASPIRIN 81 MG ECTAB PO SCH (08:14)
[2018-01-18] MEDS: LISINOPRIL 10 MG TAB PO SCH (08:14)
[2018-01-18] MEDS: CLOPIDOGREL BISULFATE 75 MG TAB PO SCH (08:14)
[2018-01-18] MEDS: INSULIN GLARGINE SOLOSTAR 100 UNITS/ML 3 ML PEN SC SCH (08:18)
[2018-01-18] MEDS ORDERED: INSULIN GLARGINE SOLOSTAR 100 UNITS/ML 3 ML PEN SC ONE (09:45)
--- NOTE | 2018-01-18 12:47 | PROGRESS NOTE ---
DATE: 01/18/2018 SUBJECTIVE: I am seeing Mrs. Lambert in followup of a left MCA infarction which appears to be embolic. There is a clot in the distal common and internal carotid artery. We have started heparin after a CT of the head noncontrast yesterday morning showed no evidence of hemorrhagic transformation. She has had a mild headache which has been persistent since prior to admission certainly no worse and has not had any new weakness or numbness. PHYSICAL EXAMINATION: GENERAL: She is awake and alert. There is normal speech and language. Her affect is appropriate. VITAL SIGNS: 37.1, 72, 18, 101/63. There is an incongruous right hemianopsia. There is no facial asymmetry. NEUROLOGICAL: No language dysfunction. No dysarthria. Minimal weakness of the right upper and lower extremity. Decreased light touch, right arm. IMPRESSION AND PLAN: Stable left middle cerebral artery infarction on anticoagulants. Followup CT of the head tomorrow to rule out hemorrhagic transformation. Defer to internal medicine regarding the use of Coumadin versus novel anticoagulants. I would recommend that the patient have a transesophageal echocardiogram and a consult has been ordered. ARCHANA
--- NOTE | 2018-01-18 13:31 | Cardiology Follow-Up ---
Subjective Subjective Date of Service: Jan 18, 2018. Additional Details: The patient had an uneventful night. She has been started on heparin. She will need to be transitioned to an oral agent. I do not believe that the factor Xa inhibitors have FDA approval for this situation and I would favor Coumadin. I would also favor discontinuing the dual antiplatelet therapy with Plavix and aspirin after Coumadin has been started. I think we can go with aspirin 81 mg only. Problem List Medical Problems: (1) Anterior chest wall pain Status: Acute (2) Back pain Status: Acute (3) Chronic neck and back pain Status: Acute (4) Flank pain Status: Acute (5) Headache Status: Acute (6) Hyperglycemia Status: Acute (7) Left sided chest pain Status: Acute (8) Left sided numbness Status: Acute (9) Pulmonary embolism Status: Acute (10) Pulmonary nodule Status: Acute (11) Tobacco abuse Status: Acute Objective Vital Signs Last Vital Signs Documentation Date Time Temp Pulse Resp B/P (MAP) Pulse Ox O2 Delivery O2 Flow Rate FiO2 01/18/18 11:38 36.6 71 18 115/68 (84) 97 Room Air Physical Exam: General Appearance: no apparent distress ENT: normal ENT inspection Neck: supple, thyroid normal, no JVD Respiratory/Chest: lungs clear, normal breath sounds Cardiovascular: regular rate, rhythm, no murmur Abdomen: normal bowel sounds, non tender, soft Extremities: normal inspection, no pedal edema, no calf tenderness Neurologic/Psychiatric: no motor/sensory deficits, alert, oriented x 3 Skin: warm/dry, no rash Lymphatic: no adenopathy Assessment and Plan Impression: 1. Embolic stroke 2. 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 3. No cardiac source of emboli by transthoracic echocardiography 4. No evidence of atrial fibrillation on telemetry Recommendations: As outlined above the patient will need to be transitioned to an oral anticoagulant. I would favor warfarin over the factor Xa inhibitors. I would also favor discontinuing the Plavix once warfarin is started. Medications: Current Inpatient Medications Medications (Trade) Dose Ordered Sig/Sunny Route Start Time Stop Time Status Last Admin Dose Admin Miscellaneous Information (Pharmacist Discharge Med Rec Consult) 1 ea UD PRN N/A 01/16/18 10:00 02/15/18 09:59 Acetaminophen (Tylenol Tab) 650 mg Q4H PRN PO 01/16/18 10:00 02/15/18 09:59 01/17/18 18:41 650 MG Nitroglycerin (Nitrostat Tab) 0.4 mg UD PRN SL 01/16/18 10:00 02/15/18 09:59 Polyethylene (Miralax Powder Packet) 17 gm DAILY PRN PO 01/16/18 10:00 02/15/18 09:59 Insulin Aspart (novoLOG ASPART) SLIDING SCALE If C... ACHS SC 01/16/18 11:00 02/15/18 10:59 01/18/18 12:30 16 UNITS Glucose (Glucose 40% Gel) 15-30 GRAMS 15 GRAMS... UD PRN PO 01/16/18 10:15 02/15/18 10:14 Glucose (Glucose Chew Tab) 4-8 Tablets 4 Tabl... UD PRN PO 01/16/18 10:15 02/15/18 10:14 Dextrose (Dextrose 50% 50ML Syringe) 25-50ML OF 50% DW IV FOR... UD PRN IV 01/16/18 10:15 02/15/18 10:14 Glucagon (Glucagon Inj) 1 mg UD PRN SQ 01/16/18 10:15 02/15/18 10:14 Levothyroxine Sodium (Synthroid Tab) 200 mcg DAILYBB PO 01/17/18 06:30 02/16/18 06:29 01/18/18 06:03 200 MCG Aspirin (Ecotrin Tab) 81 mg QAM PO 01/17/18 09:00 02/16/18 08:59 01/18/18 08:14 81 MG Lisinopril (Zestril Tab) 10 mg QAM PO 01/16/18 11:45 02/15/18 11:44 01/18/18 08:14 10 MG Miscellaneous Information (Consult Glycemic Management Pharmacy) 1 ea UD PRN N/A 01/16/18 11:51 02/15/18 11:50 Ketorolac Tromethamine (Toradol Inj) 15 mg Q6H PRN IV 01/16/18 12:00 01/21/18 11:59 01/18/18 08:37 15 MG Clopidogrel Bisulfate (plAVix TAB) 75 mg QAM PO 01/17/18 09:00 02/16/18 08:59 01/18/18 08:14 75 MG Atorvastatin Calcium (Lipitor Tab) 80 mg HS PO 01/16/18 21:00 02/16/18 08:59 01/17/18 20:51 80 MG Ioversol (Optiray 320) 100 ml UD PRN IV 01/16/18 15:00 01/20/18 14:59 Heparin Sodium/ Dextrose 500 ml @ 31 mls/hr Q16H8M PRN IV 01/17/18 12:00 02/16/18 11:59 01/18/18 07:00 28 MLS/HR Insulin Glargine (Lantus Solostar Pen) 30 units DAILY SC 01/19/18 09:00 02/18/18 08:59 Lab Results: Last 24 Hours Test 01/17/18 16:38 01/17/18 18:18 01/17/18 20:28 01/17/18 23:55 Bedside Glucose 272 mg/dl 377 mg/dl 95 mg/dl Activated Partial Thromboplast Time 28.2 SECONDS Partial Thromboplastin Ratio 1.1 Test 01/18/18 01:30 01/18/18 03:53 01/18/18 06:05 01/18/18 07:44 Activated Partial Thromboplast Time 51.5 SECONDS 46.2 SECONDS Partial Thromboplastin Ratio 2.0 1.8 Bedside Glucose 158 mg/dl 171 mg/dl White Blood Count 8.25 K/uL Red Blood Count 3.62 M/uL Hemoglobin 9.6 g/dL Hematocrit 29.5 % Mean Corpuscular Volume 81.5 fL Mean Corpuscular Hemoglobin 26.5 pg Mean Corpuscular Hemoglobin Concent 32.5 g/dl RDW Standard Deviation 45.7 fL RDW Coefficient of Variation 15.4 % Platelet Count 380 K/uL Mean Platelet Volume 10.5 fL Sodium Level 136 mmol/L Potassium Level 4.2 mmol/L Chloride Level 103 mmol/L Carbon Dioxide Level 25 mmol/L Anion Gap 8.0 mmol/L Blood Urea Nitrogen 11 mg/dl Creatinine 0.84 mg/dl Est Creatinine Clear Calc Drug Dose 79.8 ml/min Estimated GFR () 92.6 Estimated GFR (Non- 79.9 BUN/Creatinine Ratio 13.4 Random Glucose 141 mg/dl Calcium Level 8.8 mg/dl Magnesium Level 1.8 mg/dl Test 01/18/18 11:47 Bedside Glucose 205 mg/dl
--- NOTE | 2018-01-18 13:47 | Progress Note ---
Internal Med Progress Note Date of Service: Jan 18, 2018. Provider Documentation: SUBJECTIVE: Seen and examined at bedside Headache is better RUE numbness about the same Denies chest pain, SOB, dizziness, abd pain, change in vision No other complaints OBJECTIVE: Vital Signs-as noted below Physical Exam: Vitals signs as noted above General Appearance:Moderately built and nourished, no apparent distress Head: normocephalic, Atraumatic Eyes: normal inspection, EOMI, PERRL Neck: supple, Trachea midline Respiratory/Chest: Normal breath sounds, CTA Cardiovascular: S1, S2, No murmur Abdomen/GI:Soft, Non tender, Bowel sounds present Extremities/Musculoskelatal:normal inspection, no edema Neurologic/Psych:AAOX3, grossly no focal neurological deficits, RUE mild numbness Skin: normal color, warm Lab data as noted below. ASSESSMENT & PLAN: 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 Likely Embolic source MRI Brain suggestive of numerous small acute infarcts within the left cerebral hemisphere and a small acute infarct within the posterior right parietal lobe. CTA: suggestive of possible free floating thrombus in the left carotid bulb ECHO:Aortic valve sclerosis mild, without significant aortic valvular stenosis, Intact interatrial septum. Continue Aspirin, Plavix, Statins Continue IV heparin May need [facility] Anticoagulation and possible DERREK Continue Neuro checks Appreciate Neurology and cardiology Input [place], RPR pending Planned for repeat CT head tomorrow Plan to started on Coumadin likely tomorrow if CT head has no hemorrhagic transformation Plan to DC Plavix once started on coumadin DM II Uncontrolled A1C:10.6 Continue ISS, lantus Appreciate Pharmacy help for glycemic control HTN continue lisinopril Hypomagnesemia replace and monitor Hyperlipidemia: continue statin Hypothyroidism: H/O Goiter S/P thyroidectomy continue levothyroxine DVT Px: On IV heparin Code Status: Full Code Disposition: Monitor In Tele Vital Signs: Date Time Temp Pulse Resp B/P (MAP) Pulse Ox O2 Delivery O2 Flow Rate FiO2 01/18/18 12:30 Room Air 01/18/18 11:38 36.6 71 18 115/68 (84) 97 Room Air 01/18/18 08:30 98 Room Air 01/18/18 07:16 37.1 72 18 101/63 (76) 98 Room Air 01/18/18 04:12 37.2 82 18 139/84 (102) 94 Room Air 01/18/18 04:00 Room Air 01/18/18 00:00 Room Air 01/17/18 23:40 37.1 74 16 129/72 (91) 97 Room Air 01/17/18 23:37 37.1 74 16 129/72 (91) 97 Room Air 01/17/18 20:00 Room Air 01/17/18 19:19 36.6 78 19 117/69 (85) 96 Room Air 01/17/18 16:00 Room Air 01/17/18 15:30 36.9 72 18 125/72 (89) 95 Room Air Lab Results: Results Past 24 Hours Test 01/17/18 16:38 01/17/18 18:18 01/17/18 20:28 01/17/18 23:55 Range/Units Bedside Glucose 272 377 95 70-90 mg/dl Activated Partial Thromboplast Time 28.2 21.0-31.0 SECONDS Partial Thromboplastin Ratio 1.1 Test 01/18/18 01:30 01/18/18 03:53 01/18/18 06:05 01/18/18 07:44 Range/Units Activated Partial Thromboplast Time 51.5 46.2 21.0-31.0 SECONDS Partial Thromboplastin Ratio 2.0 1.8 Bedside Glucose 158 171 70-90 mg/dl White Blood Count 8.25 4.8-10.8 K/uL Red Blood Count 3.62 4.2-5.4 M/uL Hemoglobin 9.6 12.0-16.0 g/dL Hematocrit 29.5 37-47 % Mean Corpuscular Volume 81.5 80-100 fL Mean Corpuscular Hemoglobin 26.5 25-34 pg Mean Corpuscular Hemoglobin Concent 32.5 32-36 g/dl RDW Standard Deviation 45.7 36.4-46.3 fL RDW Coefficient of Variation 15.4 11.5-14.5 % Platelet Count 380 130-400 K/uL Mean Platelet Volume 10.5 7.4-10.4 fL Sodium Level 136 136-145 mmol/L Potassium Level 4.2 3.5-5.1 mmol/L Chloride Level 103 98-107 mmol/L Carbon Dioxide Level 25 21-32 mmol/L Anion Gap 8.0 3-11 mmol/L Blood Urea Nitrogen 11 7-18 mg/dl Creatinine 0.84 0.60-1.20 mg/dl Est Creatinine Clear Calc Drug Dose 79.8 ml/min Estimated GFR () 92.6 Estimated GFR (Non- 79.9 BUN/Creatinine Ratio 13.4 10-20 Random Glucose 141 70-99 mg/dl Calcium Level 8.8 8.5-10.1 mg/dl Magnesium Level 1.8 1.8-2.4 mg/dl Test 01/18/18 11:47 Range/Units Bedside Glucose 205 70-90 mg/dl
--- NOTE | 2018-01-18 15:18 | Pharmacy Progress Note ---
Glycemic: Assessment & Plan Date of Service Jan 18, 2018. Assessment & Plan Nursing endorses that Ms. Lambert' family has been giving cookies to pt and was unable to cover the subsequent carbs. Ergo, will tighten prandial/bolus coverage to CF:15 & Cr:5. Further, will increase lantus QAM from 25u to 30u. I feel that with these new parameters she will receive 1 or 2 additional units of novolog. * Please note that the plan above was derived based on current level of insulin resistance and hospital stress. These recommendations are appropriate for inpatient admission only. Plan of care upon discharge will need to be reassessed to avoid potential outpatient hypo/hyperglycemia.
[2018-01-18 15:43] LABS: PTT PATIENT 63.9 SECONDS (21.0-31.0)
[2018-01-18] MEDS: ATORVASTATIN 40 MG TAB PO SCH (20:28)
[2018-01-19] VITALS (9 sets, daily range): BP systolic 90–130; BP diastolic 51–78; PULSE 54–83; TEMP 36.3–37.2; O2SAT 95–98; Ht 152.4 cm; Wt 93.9 kg
[2018-01-19] MEDS: HEPARIN 25,000 UNIT/500ML D5W 500 ML IV PRN ×2 (01:07→16:46)
[2018-01-19] MEDS: LEVOTHYROXINE 200 MCG TAB PO SCH (05:31)
[2018-01-19] MEDS: CLOPIDOGREL BISULFATE 75 MG TAB PO SCH (07:47)
[2018-01-19 07:48] LABS: HEMATOCRIT 30.4 % (37-47); HEMOGLOBIN 9.9 g/dL (12.0-16.0); MEAN CELL VOLUME 81.7 fL (80-100); MEAN CORPUSCULAR HEMOGLOBIN 26.6 pg (25-34); MEAN CORPUSCULAR HGB CONC 32.6 g/dl (32-36); MEAN PLATELET VOLUME 10.4 fL (7.4-10.4); PLATELET COUNT 385 K/uL (130-400); RED CELL DISTRIBUTION WIDTH CV 15.5 % (11.5-14.5); RED CELL DISTRIBUTION WIDTH SD 46.1 fL (36.4-46.3); WHITE BLOOD COUNT 8.52 K/uL (4.8-10.8)
[2018-01-19] MEDS: LISINOPRIL 10 MG TAB PO SCH (07:48)
[2018-01-19] MEDS: ASPIRIN 81 MG ECTAB PO SCH (07:48)
[2018-01-19 08:09] LABS: PTT PATIENT 53.1 SECONDS (21.0-31.0)
[2018-01-19 08:20] LABS: CREATININE 0.86 mg/dl (0.60-1.20); POTASSIUM 4.3 mmol/L (3.5-5.1)
[2018-01-19] MEDS: INSULIN ASPART 100 UNITS/ML 3 ML PEN SC SCH ×4 (08:59→20:59)
[2018-01-19] MEDS ORDERED: INSULIN GLARGINE SOLOSTAR 100 UNITS/ML 3 ML PEN SC SCH ×2 (09:00)
--- NOTE | 2018-01-19 09:44 | Progress Note ---
Internal Med Progress Note Date of Service: Jan 19, 2018. Provider Documentation: SUBJECTIVE: Seen and examined at bedside Doing well today Headache resolved No new complaints Denies bleeding issues Denies chest pain, SOB, dizziness On IV Heparin Planned for repeat CT head today OBJECTIVE: Vital Signs-as noted below Physical Exam: Vitals signs as noted above General Appearance:Moderately built and nourished, no apparent distress Head: normocephalic, Atraumatic Eyes: normal inspection, EOMI, PERRL Neck: supple, Trachea midline Respiratory/Chest: Normal breath sounds, CTA Cardiovascular: S1, S2, No murmur Abdomen/GI:Soft, Non tender, Bowel sounds present Extremities/Musculoskelatal:normal inspection, no edema Neurologic/Psych:AAOX3, grossly no focal neurological deficits, RUE mild numbness Skin: normal color, warm Lab data as noted below. ASSESSMENT & PLAN: 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 Likely Embolic source MRI Brain suggestive of numerous small acute infarcts within the left cerebral hemisphere and a small acute infarct within the posterior right parietal lobe. CTA: suggestive of possible free floating thrombus in the left carotid bulb ECHO:Aortic valve sclerosis mild, without significant aortic valvular stenosis, Intact interatrial septum. Continue Aspirin, Plavix, Statins Continue IV heparin No cardiac source of emboli on TTE Will need halfway Anticoagulation and possible DERREK Continue Neuro checks Appreciate Neurology and Cardiology Input [place], RPR pending Plan to start on Coumadin if repeat CT head today has no hemorrhagic transformation Plan to DC Plavix once started on Coumadin DM II Uncontrolled A1C:10.6 Continue ISS, lantus Appreciate Pharmacy help for glycemic control HTN continue lisinopril Hypomagnesemia: replace and monitor Hyperlipidemia: continue statin Hypothyroidism: H/O Goiter S/P thyroidectomy TSH:normal continue levothyroxine Tobacco use Disorder: Counseled to quit smoking Willing to quit DVT Px: On IV heparin Code Status: Full Code Disposition: Monitor In Tele Vital Signs: Date Time Temp Pulse Resp B/P (MAP) Pulse Ox O2 Delivery O2 Flow Rate FiO2 01/19/18 07:46 69 120/78 (92) 01/19/18 07:27 36.8 62 18 130/69 (89) 96 01/19/18 04:00 Room Air 01/19/18 02:31 36.7 68 19 119/73 (88) 95 Room Air 01/19/18 00:01 37.2 75 18 120/68 (85) 97 Room Air 01/19/18 00:00 Room Air 01/18/18 23:58 36.9 80 18 163/82 (109) 97 Room Air 01/18/18 20:29 36.5 76 18 131/85 (100) 97 Room Air 01/18/18 20:24 36.7 60 17 121/72 (88) 95 Room Air 01/18/18 20:00 Room Air 01/18/18 16:00 Room Air 01/18/18 15:28 36.4 64 18 127/76 (93) 100 Room Air 01/18/18 12:30 Room Air 01/18/18 11:38 36.6 71 18 115/68 (84) 97 Room Air Lab Results: Results Past 24 Hours Test 01/18/18 11:47 01/18/18 14:57 01/18/18 16:21 01/18/18 20:15 Range/Units Bedside Glucose 205 87 275 70-90 mg/dl Activated Partial Thromboplast Time 63.9 21.0-31.0 SECONDS Partial Thromboplastin Ratio 2.5 Test 01/19/18 02:02 01/19/18 07:01 01/19/18 07:34 Range/Units Bedside Glucose 150 203 70-90 mg/dl White Blood Count 8.52 4.8-10.8 K/uL Red Blood Count 3.72 4.2-5.4 M/uL Hemoglobin 9.9 12.0-16.0 g/dL Hematocrit 30.4 37-47 % Mean Corpuscular Volume 81.7 80-100 fL Mean Corpuscular Hemoglobin 26.6 25-34 pg Mean Corpuscular Hemoglobin Concent 32.6 32-36 g/dl RDW Standard Deviation 46.1 36.4-46.3 fL RDW Coefficient of Variation 15.5 11.5-14.5 % Platelet Count 385 130-400 K/uL Mean Platelet Volume 10.4 7.4-10.4 fL Activated Partial Thromboplast Time 53.1 21.0-31.0 SECONDS Partial Thromboplastin Ratio 2.0 Sodium Level 136 136-145 mmol/L Potassium Level 4.3 3.5-5.1 mmol/L Chloride Level 103 98-107 mmol/L Carbon Dioxide Level 26 21-32 mmol/L Anion Gap 7.0 3-11 mmol/L Blood Urea Nitrogen 7 7-18 mg/dl Creatinine 0.86 0.60-1.20 mg/dl Est Creatinine Clear Calc Drug Dose 77.4 ml/min Estimated GFR () 90.0 Estimated GFR (Non- 77.7 BUN/Creatinine Ratio 8.4 10-20 Random Glucose 178 70-99 mg/dl Calcium Level 9.0 8.5-10.1 mg/dl Magnesium Level 1.7 1.8-2.4 mg/dl
[2018-01-19] MEDS: MAGNESIUM OXIDE 400 MG TAB PO SCH ×2 (09:55→20:52)
--- NOTE | 2018-01-19 10:06 | Cardiology Follow-Up ---
Subjective General Date of Service: Jan 19, 2018. Chief Complaint: Embolic CVA Pt evaluation today including: conversation w/ patient, physical exam, chart review, lab review, review of studies, review of inpatient medication list History of Present Illness Patient seen and examined after ambulating in the hallway without symptoms Sinus tachycardia up to 120 bpm noted with ambulation Review of her continuous air sampling and monitoring reveals sinus and sinus tachycardia. There was one very brief episode of SVT versus PAT at 2:52 AM. No atrial fibrillation or flutter observed. No chest pain, palpitations, new or worsening dyspnea. Allergies Coded Allergies: No Known Allergies (Unverified , 01/16/18) Social History Smoking Status: Former Smoker Hx Tobacco Use In Past Year?: Yes (6 per day) Hx Alcohol Use - Type And Amou: No Hx Substance Use - Type And Am: No Problem List Medical Problems: (1) Anterior chest wall pain Status: Acute (2) Back pain Status: Acute (3) Chronic neck and back pain Status: Acute (4) Flank pain Status: Acute (5) Headache Status: Acute (6) Hyperglycemia Status: Acute (7) Left sided chest pain Status: Acute (8) Left sided numbness Status: Acute (9) Pulmonary embolism Status: Acute (10) Pulmonary nodule Status: Acute (11) Tobacco abuse Status: Acute Physical Exam Vital Signs Last Vital Signs Documentation Date Time Temp Pulse Resp B/P (MAP) Pulse Ox O2 Delivery O2 Flow Rate FiO2 01/19/18 08:00 Room Air 01/19/18 07:46 69 120/78 (92) 01/19/18 07:27 36.8 18 96 Physical Exam Constitutional: General Apperance: overweight Level of Distress: NAD Ambulation: ambulating normally Psychiatric: Mental Status: active & alert Orientation: to time, to place, to person Memory: recent memory normal, remote memory normal Head: normocephalic, atraumatic Neck: pertinent finding (No overt JVD) Lungs: Auscultation: no wheezing, no rales/crackles, no rhonchi, deminished air movement Cardiovascular: Heart Auscultation: RRR, normal S1, normal S2, no murmurs, no rubs, no gallops Peripheral Pulses: Dorsalis Pedis Pulse: decreased on the right Abdomen: Bowel Sounds: normal Extremities: no cyanosis, no edema, no clubbing Neurologic: Cranial Nerves: grossly intact Assessment and Plan Assessment and Plan 52 year old obese female smoker with longstanding uncontrolled diabetes mellitus and dyslipidemia. Patient admitted following an embolic CVA. Imaging this admission revealed numerous small acute infarcts within the left cerebral hemisphere, small acute infarct within the posterior right parietal lobe, several old right sided infarcts, left carotid thrombus. No cardiac source of emboli by transthoracic echocardiography. No evidence of atrial fibrillation or flutter via continuous telemetry monitoring. Transesophageal echocardiography requested by Neurology however I do not believe the results of said evaluation would private branch exchange repairer recommendations Recommendations at this time include transiting heparin to Coumadin anticoagulation when OK with Neurology, utilizing ASA 81 mg/day, high intensity statin therapy, adequate control of the hypertension, tobacco cessation, strict diabetic control, and gradual weight loss. CARDIOLOGY ATTENDING ADDENDUM: The patient was seen and personally examined. Agree with Mekhi Cespedes PA-C's findings and plans as documented above. I agree a transesophageal echocardiogram would be low yield and not change her management. The patient has to be anticoagulated long-term with Coumadin regardless. She is currently being transitioned from heparin to Coumadin. Laboratory Results Last 24 Hours Test 01/18/18 11:47 01/18/18 14:57 01/18/18 16:21 01/18/18 20:15 Bedside Glucose 205 mg/dl 87 mg/dl 275 mg/dl Activated Partial Thromboplast Time 63.9 SECONDS Partial Thromboplastin Ratio 2.5 Test 01/19/18 02:02 01/19/18 07:01 01/19/18 07:34 Bedside Glucose 150 mg/dl 203 mg/dl White Blood Count 8.52 K/uL Red Blood Count 3.72 M/uL Hemoglobin 9.9 g/dL Hematocrit 30.4 % Mean Corpuscular Volume 81.7 fL Mean Corpuscular Hemoglobin 26.6 pg Mean Corpuscular Hemoglobin Concent 32.6 g/dl RDW Standard Deviation 46.1 fL RDW Coefficient of Variation 15.5 % Platelet Count 385 K/uL Mean Platelet Volume 10.4 fL Activated Partial Thromboplast Time 53.1 SECONDS Partial Thromboplastin Ratio 2.0 Sodium Level 136 mmol/L Potassium Level 4.3 mmol/L Chloride Level 103 mmol/L Carbon Dioxide Level 26 mmol/L Anion Gap 7.0 mmol/L Blood Urea Nitrogen 7 mg/dl Creatinine 0.86 mg/dl Est Creatinine Clear Calc Drug Dose 77.4 ml/min Estimated GFR () 90.0 Estimated GFR (Non- 77.7 BUN/Creatinine Ratio 8.4 Random Glucose 178 mg/dl Calcium Level 9.0 mg/dl Magnesium Level 1.7 mg/dl
--- NOTE | 2018-01-19 12:24 | DIAGNOSTIC IMAGING REPORT ---
CT HEAD WITHOUT CONTRAST (CT) CLINICAL HISTORY: Headache. Left MCA infarct. Evaluate for hemorrhagic transformation. COMPARISON STUDY: 01/17/2018 TECHNIQUE: Axial CT of the brain is performed from the vertex to the skull base. IV contrast was not administered for this examination. A dose lowering technique was utilized adhering to the principles of ALARA. CT DOSE: 614.27 mGy.cm FINDINGS: There are left temporal, parietal and occipital hypodensities, consistent with subacute infarcts. There is no evidence of midline shift. There is no evidence of acute hemorrhage. There is no evidence of pathologic ventricular dilatation. There is no evidence of acute sinusitis IMPRESSION: 1. Left temporal, parietal, and occipital hypodensities consistent with subacute infarcts 2. No acute hemorrhage Electronically signed by: Lonnie James M.D. 01/19/2018 12:23 PM Dictated Date/Time: 01/19/2018 12:20 PM
--- NOTE | 2018-01-19 12:40 | Pharmacy Progress Note ---
Pharmacy Glycemic Short Note 2 Date of Service Jan 19, 2018. OUTPATIENT ANTIDIABETIC REGIMEN: * Glipizide 5mg PO BIDM * Metformin 1,000mg PO BIDM * A1c = 10.6% on 01/16/18 ASSESSMENT: * Ms Lambert is a 52 y/o F with a PMH of HTN, hypothyroidism, and poorly controlled type 2 diabetes (goal A1c is <7% based on age/comorbidities and elements of diabetes care scoring scale); she is admitted with HAM/RUE numbness - subsequently diagnosed with stroke. Yesterday the patient's blood sugars were [phone]. Fasting is 203 mg/dL. Patient remains on heparin infusion; nursing believes that patient's family is giving her uncovered cookies. * Patient is currently receiving an average of ~74 units of insulin per day (30 units of basal insulin; 44 units of prandial/correctional insulin). The patient' s blood sugars yesterday were [phone]. Fasting this morning is 203 mg/ dL. This is increased from 171 mg/dL fasting yesterday. Increased basal by 20% to Lantus 35 units SQ daily. * For Novolog, the patient is receiving more meal-time insulin than basal. Novolog was tightened to weight-based stress of 3 yesterday .... the patient appeared to stack during the day until dinnertime. Then carbohydrates were not adequately covered. The patient's blood sugar at lunch today was even more elevated at 284 mg/dL. I was concerned for stacking... so therefore continued same regimen. Most likely patient requires around 90 units/day which would mean the patient requires more basal insulin. Continue current coverage. PLAN FOR INPATIENT GLYCEMIC CONTROL: * Holding outpatient oral diabetes medications * Basal insulin * Lantus 35 units SQ daily - may be titrated further upwards tomorrow. * Bolus insulin * NovoLog per scale ACHS or Q6hrs while NPO. Additional checks + coverage at 0000 & 0400 tonight * Goal Range: Low 120 mg/dL - High 150 mg/dL {slightly higher goal range for elevated A1c, pt may feel hypo at otherwise normal A1c) * Correction Factor: 15 mg/dL/unit * Nutritional / Prandial insulin per carb ratio of 1 unit per 5 grams CHO consumed
--- NOTE | 2018-01-19 14:53 | Neurology Progress Notes ---
Neurology Progress Note Date of Service Jan 19, 2018. Frankie Guerrero is a 52 year old female with PMH CVA, HTN, uncontrolled DM II, HLD, hypothyroidism. She presented with c/o Left sided HAM and R arm numbness and weakness started the morning of 01/15/18. She tried Tylenol once yesterday without relief and her entire right arm had been numb and weak. It was reported she is non-compliant with her medications and doesn't take them regularly and didn't take them the day of admission. But went asking her she states she does try to take them as ordered. She has a previous hospitalization on 01/09/18 for PE but there was no PE and she was found to have influenza A. She states she was prescribed aspirin but it was stopped when she had some bleeding during a coloscopy. She was placed back on aspirin but only took it occasionally. She states she is having some blurred vision right arm is not "working" right, dizziness, headache. She denies history of irregular heart beat, Today she states her headache has resolved. She understands she will start Coumadin. and then the aspirin will be stopped. repeat CT head with no bleed. denies: falls, CP, SOB, N, V, swallowing issues. Objective Date Time Temp Pulse Resp B/P (MAP) Pulse Ox O2 Delivery O2 Flow Rate FiO2 01/19/18 12:00 Room Air 01/19/18 11:59 36.9 54 18 90/58 (69) 97 Room Air 01/19/18 08:00 Room Air 01/19/18 07:46 69 120/78 (92) 01/19/18 07:27 36.8 62 18 130/69 (89) 96 01/19/18 04:00 Room Air 01/19/18 02:31 36.7 68 19 119/73 (88) 95 Room Air 01/19/18 00:01 37.2 75 18 120/68 (85) 97 Room Air 01/19/18 00:00 Room Air 01/18/18 23:58 36.9 80 18 163/82 (109) 97 Room Air 01/18/18 20:29 36.5 76 18 131/85 (100) 97 Room Air 01/18/18 20:24 36.7 60 17 121/72 (88) 95 Room Air 01/18/18 20:00 Room Air 01/18/18 16:00 Room Air 01/18/18 15:28 36.4 64 18 127/76 (93) 100 Room Air Last 24 Hours Test 01/18/18 14:57 01/18/18 16:21 01/18/18 20:15 01/19/18 02:02 Activated Partial Thromboplast Time 63.9 SECONDS Partial Thromboplastin Ratio 2.5 Bedside Glucose 87 mg/dl 275 mg/dl 150 mg/dl Test 01/19/18 07:01 01/19/18 07:34 01/19/18 11:11 White Blood Count 8.52 K/uL Red Blood Count 3.72 M/uL Hemoglobin 9.9 g/dL Hematocrit 30.4 % Mean Corpuscular Volume 81.7 fL Mean Corpuscular Hemoglobin 26.6 pg Mean Corpuscular Hemoglobin Concent 32.6 g/dl RDW Standard Deviation 46.1 fL RDW Coefficient of Variation 15.5 % Platelet Count 385 K/uL Mean Platelet Volume 10.4 fL Activated Partial Thromboplast Time 53.1 SECONDS Partial Thromboplastin Ratio 2.0 Sodium Level 136 mmol/L Potassium Level 4.3 mmol/L Chloride Level 103 mmol/L Carbon Dioxide Level 26 mmol/L Anion Gap 7.0 mmol/L Blood Urea Nitrogen 7 mg/dl Creatinine 0.86 mg/dl Est Creatinine Clear Calc Drug Dose 77.4 ml/min Estimated GFR () 90.0 Estimated GFR (Non- 77.7 BUN/Creatinine Ratio 8.4 Random Glucose 178 mg/dl Calcium Level 9.0 mg/dl Magnesium Level 1.7 mg/dl Bedside Glucose 203 mg/dl 284 mg/dl Imaging: CT head- . Left temporal, parietal, and occipital hypodensities consistent with subacute infarcts No acute hemorrhage CTA- head/neck- . Linear soft tissue attenuating eccentrically located filling defect within the left carotid bulb draped over the carotid bifurcation extending into the proximal portions of the left internal and external carotid arteries measuring up to 1.0 cm in length causes approximately 50% narrowing of the proximal left internal carotid artery suggesting a free floating thrombus. Echocardiogram may be considered to exclude cardiac etiology. No aneurysm, dissection or proximal branch occlusion identified. Multiple small acute infarctions are again noted throughout the left cerebral hemisphere, better seen on comparison brain MRI of same day. No acute intracranial hemorrhage or midline shift. Exam: Physical Exam: alert NAD sitting up in bed Constitutional: nourished, healthy and normal Ears, Nose, Mouth and Throat: mucous membranes moist, no injection and skin normal, eyes normal Cardiovascular: tacky rhythm Respiratory: clear to auscultation (CTA) and no rales, rhonchi or wheeze Musculoskeletal: no peripheral edema Skin: no stigmata of neurocutaneous disease noted and normal and intact Eyes: extraocular muscles intact (EOMI) and pupils equal, round and reactive to light (PERRL) NEUROLOGIC EXAMINATION: Mental status: Alert and interactive Oriented to full date and location Oriented to person Speech fluent with no evidence of aphasia Cranial Nerves smile eye brow raise symmetric Coordination: finger to nose with mild bipass on right but corrects on 2nd try Gait/Stance: Posture sitting up in bed Motor: Negative for pronator drift of out stretched arms with eyes closed. Strength: hand filling hauler biceps triceps, bilaterally 5/5, hip flex plantar flex ext 5/5 Current Inpatient Medications Medications (Trade) Dose Ordered Sig/Sunny Route Start Time Stop Time Status Last Admin Dose Admin Miscellaneous Information (Pharmacist Discharge Med Rec Consult) 1 ea UD PRN N/A 01/16/18 10:00 02/15/18 09:59 Acetaminophen (Tylenol Tab) 650 mg Q4H PRN PO 01/16/18 10:00 02/15/18 09:59 01/17/18 18:41 650 MG Nitroglycerin (Nitrostat Tab) 0.4 mg UD PRN SL 01/16/18 10:00 02/15/18 09:59 Polyethylene (Miralax Powder Packet) 17 gm DAILY PRN PO 01/16/18 10:00 02/15/18 09:59 Insulin Aspart (novoLOG ASPART) SLIDING SCALE If C... ACHS SC 01/16/18 11:00 02/15/18 10:59 01/19/18 12:54 18 UNITS Glucose (Glucose 40% Gel) 15-30 GRAMS 15 GRAMS... UD PRN PO 01/16/18 10:15 02/15/18 10:14 Glucose (Glucose Chew Tab) 4-8 Tablets 4 Tabl... UD PRN PO 01/16/18 10:15 02/15/18 10:14 Dextrose (Dextrose 50% 50ML Syringe) 25-50ML OF 50% DW IV FOR... UD PRN IV 01/16/18 10:15 02/15/18 10:14 Glucagon (Glucagon Inj) 1 mg UD PRN SQ 01/16/18 10:15 02/15/18 10:14 Levothyroxine Sodium (Synthroid Tab) 200 mcg DAILYBB PO 01/17/18 06:30 02/16/18 06:29 01/19/18 05:31 200 MCG Aspirin (Ecotrin Tab) 81 mg QAM PO 01/17/18 09:00 02/16/18 08:59 01/19/18 07:48 81 MG Lisinopril (Zestril Tab) 10 mg QAM PO 01/16/18 11:45 02/15/18 11:44 01/19/18 07:48 10 MG Miscellaneous Information (Consult Glycemic Management Pharmacy) 1 ea UD PRN N/A 01/16/18 11:51 02/15/18 11:50 Ketorolac Tromethamine (Toradol Inj) 15 mg Q6H PRN IV 01/16/18 12:00 01/21/18 11:59 01/18/18 08:37 15 MG Clopidogrel Bisulfate (plAVix TAB) 75 mg QAM PO 01/17/18 09:00 02/16/18 08:59 01/19/18 07:47 75 MG Atorvastatin Calcium (Lipitor Tab) 80 mg HS PO 01/16/18 21:00 02/16/18 08:59 01/18/18 20:28 80 MG Ioversol (Optiray 320) 100 ml UD PRN IV 01/16/18 15:00 01/20/18 14:59 Heparin Sodium/ Dextrose 500 ml @ 31 mls/hr Q16H8M PRN IV 01/17/18 12:00 02/16/18 11:59 01/19/18 01:07 31 MLS/HR Magnesium Oxide (Mag-Ox Tab) 400 mg BID PO 01/19/18 10:00 01/21/18 09:59 01/19/18 09:55 400 MG Insulin Glargine (Lantus Solostar Pen) see protocol tet DAILY SC 01/20/18 09:00 02/19/18 08:59 Impression 52 year old with headache and right arm numbness, weakness, resolving Plan 1. currently taking aspirin 81 mg and plavix 75 mg, ok to stop plavix and add coumadin, continue heparin bridge until INR therapeutic. Cardiology recommendations for starting. 2. optimize HTN, DL, DM, LDL <70 3. PT/OT speech for discharge needs 4. TTE- no ASD 5. MRI with and without brain - previous infarcts on right acute scattered infarcts on the left. 6. carotid doppler- Mild to moderate plaque within the proximal left internal carotid artery with normal peak systolic velocity but elevated end-diastolic velocity and spectral broadening. This may reflect an approximate 50% stenosis. 7. cardiology for OP monitoring if no irregular HR seen with monitoring will need ZIO or cardionet 8. discussed compliance of medication with patient she voiced understanding 9. CTA for better definition of ICA and possible narrowing 10. hypercoag studies done on admission 01/09/18 all normal studies 11. cardiology recommends coumadin for anticoagulation- no indication for DERREK at this time- Mekhi Cespedes progress note. 12. discharge to home once INR is therapeutic or with lovenox bridge- per cardiology recommendations. appointment with neurology as outpatient in 2-[address] Lesa Ortega, or Lesa Padilla PAC schedule I have seen and discussed above patient with Dr Lesa Ortega, neurology Pt seen and examined, No headache, minimal residual deficit. CT head no hemorrhagic transformation, ok to start anticoagulants, stop Plavix. DULCE Ortega MD
[2018-01-19] MEDS ORDERED: WARFARIN SOD 5 MG TAB PO ONE (17:00)
[2018-01-19] MEDS: ATORVASTATIN 40 MG TAB PO SCH (20:52)
[2018-01-20] VITALS (8 sets, daily range): BP systolic 90–109; BP diastolic 52–74; PULSE 62–77; TEMP 36.7–37; O2SAT 97–99
[2018-01-20] MEDS: ACETAMINOPHEN 325 MG TAB PO PRN ×3 (04:18→21:32)
[2018-01-20 06:02] LABS: HEMATOCRIT 30.5 % (37-47); HEMOGLOBIN 9.9 g/dL (12.0-16.0); MEAN CELL VOLUME 82.2 fL (80-100); MEAN CORPUSCULAR HEMOGLOBIN 26.7 pg (25-34); MEAN CORPUSCULAR HGB CONC 32.5 g/dl (32-36); MEAN PLATELET VOLUME 10.5 fL (7.4-10.4); PLATELET COUNT 387 K/uL (130-400); RED CELL DISTRIBUTION WIDTH CV 15.5 % (11.5-14.5); RED CELL DISTRIBUTION WIDTH SD 46.7 fL (36.4-46.3); WHITE BLOOD COUNT 9.36 K/uL (4.8-10.8)
[2018-01-20] MEDS: LEVOTHYROXINE 200 MCG TAB PO SCH (06:03)
[2018-01-20 06:32] LABS: CALCIUM 8.7 mg/dl (8.5-10.1); CREATININE 0.82 mg/dl (0.60-1.20); POTASSIUM 3.8 mmol/L (3.5-5.1)
[2018-01-20 06:40] LABS: PTT PATIENT 54.5 SECONDS (21.0-31.0)
[2018-01-20] MEDS: MAGNESIUM OXIDE 400 MG TAB PO SCH ×2 (08:40→21:33)
[2018-01-20] MEDS: LISINOPRIL 10 MG TAB PO SCH (08:40)
[2018-01-20] MEDS: ASPIRIN 81 MG ECTAB PO SCH (08:40)
[2018-01-20] MEDS: INSULIN ASPART 100 UNITS/ML 3 ML PEN SC SCH ×4 (08:47→21:40)
[2018-01-20] MEDS: INSULIN GLARGINE SOLOSTAR 100 UNITS/ML 3 ML PEN SC SCH (08:47)
[2018-01-20] MEDS ORDERED: INSULIN GLARGINE SOLOSTAR 100 UNITS/ML 3 ML PEN SC SCH (09:00)
[2018-01-20] MEDS: HEPARIN 25,000 UNIT/500ML D5W 500 ML IV PRN (09:33)
--- NOTE | 2018-01-20 10:13 | Cardiology Follow-Up ---
Subjective General Date of Service: Jan 20, 2018. Chief Complaint: Embolic CVA Pt evaluation today including: conversation w/ patient, physical exam, chart review, lab review, review of studies, review of inpatient medication list History of Present Illness Patient seen and examined. Chart, medications, and telemetry reviewed. No complaints. Jaw pain associated with "a bad tooth." Denies chest pain, palpitations, or dyspnea. Telemetry: sinus at 75 bpm. Sinus tachycardia.No atrial fibrillation or flutter observed. Allergies Coded Allergies: No Known Allergies (Unverified , 01/16/18) Social History Smoking Status: Former Smoker Hx Tobacco Use In Past Year?: Yes (6 per day) Hx Alcohol Use - Type And Amou: No Hx Substance Use - Type And Am: No Problem List Medical Problems: (1) Anterior chest wall pain Status: Acute (2) Back pain Status: Acute (3) Chronic neck and back pain Status: Acute (4) Flank pain Status: Acute (5) Headache Status: Acute (6) Hyperglycemia Status: Acute (7) Left sided chest pain Status: Acute (8) Left sided numbness Status: Acute (9) Pulmonary embolism Status: Acute (10) Pulmonary nodule Status: Acute (11) Tobacco abuse Status: Acute Physical Exam Vital Signs Last Vital Signs Documentation Date Time Temp Pulse Resp B/P (MAP) Pulse Ox O2 Delivery O2 Flow Rate FiO2 01/20/18 08:39 77 106/74 (85) 01/20/18 08:00 Room Air 01/20/18 07:38 36.7 16 97 Physical Exam Constitutional: General Apperance: overweight Level of Distress: NAD Ambulation: ambulating normally Psychiatric: Mental Status: active & alert Orientation: to time, to place, to person Memory: recent memory normal, remote memory normal Head: normocephalic, atraumatic Neck: pertinent finding (No overt JVD) Lungs: Auscultation: no wheezing, no rales/crackles, no rhonchi, deminished air movement Cardiovascular: Heart Auscultation: RRR, normal S1, normal S2, no murmurs, no rubs, no gallops Peripheral Pulses: Dorsalis Pedis Pulse: decreased on the left, decreased on the right Abdomen: Bowel Sounds: normal Extremities: no cyanosis, no edema, no clubbing Neurologic: Cranial Nerves: grossly intact Assessment and Plan Assessment and Plan 52 year old obese female smoker with longstanding uncontrolled diabetes mellitus and dyslipidemia. Patient admitted following an embolic CVA. Imaging this admission revealed numerous small acute infarcts within the left cerebral hemisphere, small acute infarct within the posterior right parietal lobe, several old right sided infarcts, left carotid thrombus. No cardiac source of emboli by transthoracic echocardiography. No evidence of atrial fibrillation or flutter via continuous telemetry monitoring. Transesophageal echocardiography requested by Neurology however I do not believe the results of said evaluation would management trainee recommendations Recommendations include chronic Coumadin anticoagulation, ASA 81 mg/day, high intensity statin therapy, adequate blood pressure control, tobacco cessation, strict diabetic control, and gradual weight loss. Please contact if any further questions or concerns. CARDIOLOGY ATTENDING ADDENDUM: The patient was seen and personally examined. Agree with Mekhi Cespedes PA-C's findings and plans as documented above. Lifelong anticoagulation is indicated for this patient. It appears that she has had more than one embolic event with evidence of small infarcts in both brain hemispheres. Other risk factors are important as well including her cigarette smoking, diabetes and dyslipidemia. We can only hope to medically manage her. Laboratory Results Last 24 Hours Test 01/19/18 11:11 01/19/18 16:29 01/19/18 20:31 01/20/18 05:27 Bedside Glucose 284 mg/dl 117 mg/dl 203 mg/dl White Blood Count 9.36 K/uL Red Blood Count 3.71 M/uL Hemoglobin 9.9 g/dL Hematocrit 30.5 % Mean Corpuscular Volume 82.2 fL Mean Corpuscular Hemoglobin 26.7 pg Mean Corpuscular Hemoglobin Concent 32.5 g/dl RDW Standard Deviation 46.7 fL RDW Coefficient of Variation 15.5 % Platelet Count 387 K/uL Mean Platelet Volume 10.5 fL Prothrombin Time 10.8 SECONDS Prothromb Time International Ratio 1.0 Activated Partial Thromboplast Time 54.5 SECONDS Partial Thromboplastin Ratio 2.1 Sodium Level 137 mmol/L Potassium Level 3.8 mmol/L Chloride Level 103 mmol/L Carbon Dioxide Level 26 mmol/L Anion Gap 7.0 mmol/L Blood Urea Nitrogen 9 mg/dl Creatinine 0.82 mg/dl Est Creatinine Clear Calc Drug Dose 81.2 ml/min Estimated GFR () 95.4 Estimated GFR (Non- 82.3 BUN/Creatinine Ratio 10.4 Random Glucose 144 mg/dl Calcium Level 8.7 mg/dl Magnesium Level 1.7 mg/dl Test 01/20/18 07:32 Bedside Glucose 163 mg/dl
--- NOTE | 2018-01-20 12:43 | Pharmacy Progress Note ---
Pharmacy Glycemic Short Note 2 Date of Service Jan 20, 2018. OUTPATIENT ANTIDIABETIC REGIMEN: * Glipizide 5mg PO BIDM * Metformin 1,000mg PO BIDM * A1c = 10.6% on 01/16/18 ASSESSMENT: * Ms Lambert is a 52 y/o F with a PMH of HTN, hypothyroidism, and poorly controlled type 2 diabetes (goal A1c is <7% based on age/comorbidities and elements of diabetes care scoring scale); she is admitted with HAM/RUE numbness - subsequently diagnosed with stroke. Yesterday the patient's blood sugars were [phone]. Fasting is 163 mg/dL. Patient remains on heparin infusion; nursing believes that patient's family is giving her uncovered cookies. * Patient is currently receiving an average of ~87 units of insulin per day (35 units of basal insulin; 52 units of prandial/correctional insulin). The patient' s fasting blood sugar improved by 40 points today. Continue current regimen- do not want to aggressive lower fasting blood sugar so comfortable with current dosing. * For Novolog, the patient is receiving more meal-time insulin than basal. The patient appeared to stack during the day until dinnertime. The patient's carbohydrates do not appear adequately covered as the patient's blood sugar increased significantly from dinner to bedtime. Tightened carbohydrate coverage today. Also lowered goal range so carbohydrate coverage would not be subtracted. * Restarted metformin today as greater than 48 hours since IV contrast and patient has demonstrated adequate oral intake/ excellent kidney function. PLAN FOR INPATIENT GLYCEMIC CONTROL: * metformin 1 gm PO BID starting at dinner * Basal insulin * Lantus 35 units SQ daily - may be titrated further upwards tomorrow. * Bolus insulin * NovoLog per scale ACHS or Q6hrs while NPO. * Goal Range: Low 110 mg/dL - High 140 mg/dL * Correction Factor: 15 mg/dL/unit * Nutritional / Prandial insulin per carb ratio of 1 unit per 4 grams CHO consumed OUTPATIENT RECOMMENDATIONS * Ms Lambert has an elevated HbA1C that requires the initiation of insulin. Per conversations with the communication specialist, recommend once daily Lantus injection. * Lantus 35-40 units once daily * d/c glipizide as combination with insulin can increase risk of hypoglycemia * continue metformin
--- NOTE | 2018-01-20 15:32 | Neurology Progress Notes ---
Neurology Progress Note Date of Service Jan 20, 2018. Frankie Guerrero is a 52 year old female with PMH CVA, HTN, uncontrolled DM II, HLD, hypothyroidism. She presented with c/o Left sided HAM and R arm numbness and weakness started the morning of 01/15/18. She tried Tylenol once yesterday without relief and her entire right arm had been numb and weak. It was reported she is non-compliant with her medications and doesn't take them regularly and didn't take them the day of admission. But went asking her she states she does try to take them as ordered. She has a previous hospitalization on 01/09/18 for PE but there was no PE and she was found to have influenza A. She states she was prescribed aspirin but it was stopped when she had some bleeding during a coloscopy. She was placed back on aspirin but only took it occasionally. She states she is having some blurred vision right arm is not "working" right, dizziness, headache. She denies history of irregular heart beat, She is up walking in the room. States she will be here on heparin gtt. until the Coumadin is therapeutic. She is having some numbness in her right arm but she thinks the strength has returned. no difficulty ambulating and no new symptoms. Objective Date Time Temp Pulse Resp B/P (MAP) Pulse Ox O2 Delivery O2 Flow Rate FiO2 01/20/18 12:00 Room Air 01/20/18 11:43 74 16 100/62 (75) 99 Room Air 01/20/18 08:39 77 106/74 (85) 01/20/18 08:00 Room Air 01/20/18 07:38 36.7 62 16 90/58 (69) 97 Room Air 01/20/18 04:00 Room Air 01/20/18 03:48 36.7 65 20 106/68 (81) 97 Room Air 01/20/18 00:00 36.9 71 16 109/63 (78) 99 Room Air 01/20/18 00:00 Room Air 01/19/18 20:25 98 Room Air 01/19/18 19:51 36.3 83 18 124/72 (89) 98 Room Air 01/19/18 16:01 98 Room Air 01/19/18 15:38 36.7 60 16 102/51 (68) 98 Room Air Last 24 Hours Test 01/19/18 16:29 3/5/18 20:31 01/20/18 05:27 01/20/18 07:32 Bedside Glucose 117 mg/dl 203 mg/dl 163 mg/dl White Blood Count 9.36 K/uL Red Blood Count 3.71 M/uL Hemoglobin 9.9 g/dL Hematocrit 30.5 % Mean Corpuscular Volume 82.2 fL Mean Corpuscular Hemoglobin 26.7 pg Mean Corpuscular Hemoglobin Concent 32.5 g/dl RDW Standard Deviation 46.7 fL RDW Coefficient of Variation 15.5 % Platelet Count 387 K/uL Mean Platelet Volume 10.5 fL Prothrombin Time 10.8 SECONDS Prothromb Time International Ratio 1.0 Activated Partial Thromboplast Time 54.5 SECONDS Partial Thromboplastin Ratio 2.1 Sodium Level 137 mmol/L Potassium Level 3.8 mmol/L Chloride Level 103 mmol/L Carbon Dioxide Level 26 mmol/L Anion Gap 7.0 mmol/L Blood Urea Nitrogen 9 mg/dl Creatinine 0.82 mg/dl Est Creatinine Clear Calc Drug Dose 81.2 ml/min Estimated GFR () 95.4 Estimated GFR (Non- 82.3 BUN/Creatinine Ratio 10.4 Random Glucose 144 mg/dl Calcium Level 8.7 mg/dl Magnesium Level 1.7 mg/dl Test 01/20/18 11:37 Bedside Glucose 208 mg/dl Imaging: no new imaging Exam: Physical Exam: Constitutional: appearance nourished, healthy and normal Ears, Nose, Mouth and Throat: mucous membranes moist, no injection and skin normal, eyes normal Cardiovascular: tachycardia Respiratory: clear to auscultation (CTA) and no rales, rhonchi or wheeze Musculoskeletal: no peripheral edema and good distal pulses Skin: no stigmata of neurocutaneous disease noted and normal and intact Eyes: extraocular muscles intact (EOMI) and pupils equal, round and reactive to light (PERRL) NEUROLOGIC EXAMINATION: Mental status: Alert and interactive Oriented to full date and location Oriented to person Speech fluent with no evidence of aphasia Cranial Nerves smile eye brow raise symmetric Reflexes: Deep tendon reflexes were symmetrical and graded 2/5. Plantar responses were flexor. Coordination: finger to nose no bi pass Gait/Stance: Posture normal. Gait normal: with steady with steps, base, turning, tandem gait. Motor: Negative for pronator drift of out stretched arms with eyes closed. Strength: biceps triceps deltoid intrinsics 5/5 bilaterally hip flex 5/5 bilaterally Current Inpatient Medications Medications (Trade) Dose Ordered Sig/Sunny Route Start Time Stop Time Status Last Admin Dose Admin Miscellaneous Information (Pharmacist Discharge Med Rec Consult) 1 ea UD PRN N/A 01/16/18 10:00 02/15/18 09:59 Acetaminophen (Tylenol Tab) 650 mg Q4H PRN PO 01/16/18 10:00 02/15/18 09:59 01/20/18 04:18 650 MG Nitroglycerin (Nitrostat Tab) 0.4 mg UD PRN SL 01/16/18 10:00 02/15/18 09:59 Polyethylene (Miralax Powder Packet) 17 gm DAILY PRN PO 01/16/18 10:00 02/15/18 09:59 Insulin Aspart (novoLOG ASPART) SLIDING SCALE If C... ACHS SC 01/16/18 11:00 02/15/18 10:59 01/20/18 12:30 14 UNITS Glucose (Glucose 40% Gel) 15-30 GRAMS 15 GRAMS... UD PRN PO 01/16/18 10:15 02/15/18 10:14 Glucose (Glucose Chew Tab) 4-8 Tablets 4 Tabl... UD PRN PO 01/16/18 10:15 02/15/18 10:14 Dextrose (Dextrose 50% 50ML Syringe) 25-50ML OF 50% DW IV FOR... UD PRN IV 01/16/18 10:15 02/15/18 10:14 Glucagon (Glucagon Inj) 1 mg UD PRN SQ 01/16/18 10:15 02/15/18 10:14 Levothyroxine Sodium (Synthroid Tab) 200 mcg DAILYBB PO 01/17/18 06:30 02/16/18 06:29 01/20/18 06:03 200 MCG Aspirin (Ecotrin Tab) 81 mg QAM PO 01/17/18 09:00 02/16/18 08:59 01/20/18 08:40 81 MG Lisinopril (Zestril Tab) 10 mg QAM PO 01/16/18 11:45 02/15/18 11:44 01/20/18 08:40 10 MG Miscellaneous Information (Consult Glycemic Management Pharmacy) 1 kalina UD PRN N/A 01/16/18 11:51 02/15/18 11:50 Ketorolac Tromethamine (Toradol Inj) 15 mg Q6H PRN IV 01/16/18 12:00 01/21/18 11:59 01/18/18 08:37 15 MG Atorvastatin Calcium (Lipitor Tab) 80 mg HS PO 01/16/18 21:00 02/16/18 08:59 01/19/18 20:52 80 MG Heparin Sodium/ Dextrose 500 ml @ 31 mls/hr Q16H8M PRN IV 01/17/18 12:00 02/16/18 11:59 01/20/18 09:33 31 MLS/HR Magnesium Oxide (Mag-Ox Tab) 400 mg BID PO 01/19/18 10:00 01/21/18 09:59 01/20/18 08:40 400 MG Warfarin Sodium (Coumadin Tab) 5 mg DAILY@16 PO 01/20/18 16:00 02/19/18 15:59 Insulin Glargine (Lantus Solostar Pen) 35 units DAILY SC 01/20/18 09:00 02/19/18 08:59 01/20/18 08:47 35 UNITS Metformin HCl (Glucophage Tab) 1,000 mg BIDM PO 01/20/18 17:00 02/19/18 16:59 Impression 52 year old with headache and right arm numbness, weakness, resolving Plan 1. currently taking aspirin 81 mg Coumadin started at 5 mg continue heparin bridge until INR therapeutic. Cardiology recommendations to continue for a lifetime 2. optimize HTN, DL, DM, LDL <70 3. PT/OT speech for discharge needs 4. TTE- no ASD 5. MRI with and without brain - previous infarcts on right acute scattered infarcts on the left. 6. carotid doppler- Mild to moderate plaque within the proximal left internal carotid artery with normal peak systolic velocity but elevated end-diastolic velocity and spectral broadening. This may reflect an approximate 50% stenosis. 7. cardiology for OP monitoring if no irregular HR seen with monitoring will need ZIO or cardionet 8. discussed compliance of medication with patient she voiced understanding 9. CTA for better definition of ICA and possible narrowing 10. hypercoag studies done on admission 01/09/18 all normal studies 11. cardiology recommends coumadin for anticoagulation- no indication for DERREK at this time- Mekhi Cespedes progress note. 12. discharge to home once INR is therapeutic will sign off for now will be available for questions appointment with neurology as outpatient in 2-[address] Lesa Ortega, or Lesa Padilla PAC schedule I have seen and discussed above patient with Dr Lesa Ortega, neurology
[2018-01-20] MEDS ORDERED: WARFARIN SOD 5 MG TAB PO SCH (16:00)
[2018-01-20] MEDS ORDERED: METFORMIN HCL 500 MG TAB PO SCH (17:00)
[2018-01-20] MEDS: METFORMIN HCL 500 MG TAB PO SCH (17:31)
--- NOTE | 2018-01-20 19:12 | Progress Note ---
Internal Med Progress Note Date of Service: Jan 20, 2018. 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 Likely Embolic source TTE:Aortic valve sclerosis mild, without significant aortic valvular stenosis, Intact interatrial septum. MRI Brain suggestive of numerous small acute infarcts within the left cerebral hemisphere and a small acute infarct within the posterior right parietal lobe. Head CTA: suggestive of possible free floating thrombus in the left carotid bulb Head CT on 01/17/18 and 01/19/18: No hemorrhage At this time the plan continues to be to have patient on IV heparin and bridge to coumadin. INR is subtherapeutic continue aspirin. no plavix needed while on coumadin [place] and RPR negative appointment with neurology as outpatient in 2-[address] Lesa Ortega, or Lesa Padilla PAC schedule DM II Uncontrolled A1C:10.6 Continue ISS, lantus restart metformin Pharmacy glycemic control HTN continue lisinopril Hypomagnesemia: replace and monitor Hyperlipidemia: continue statin Hypothyroidism: H/O Goiter S/P thyroidectomy TSH:normal continue levothyroxine Tobacco use Disorder: Counseled to quit smoking DVT Px: On IV heparin and Coumadin Code Status: Full Code Vital Signs: Date Time Temp Pulse Resp B/P (MAP) Pulse Ox O2 Delivery O2 Flow Rate FiO2 01/20/18 16:00 Room Air 01/20/18 15:44 36.9 63 18 96/64 (75) 98 Room Air 01/20/18 12:00 Room Air 01/20/18 11:43 74 16 100/62 (75) 99 Room Air 01/20/18 08:39 77 106/74 (85) 01/20/18 08:00 Room Air 01/20/18 07:38 36.7 62 16 90/58 (69) 97 Room Air 01/20/18 04:00 Room Air 01/20/18 03:48 36.7 65 20 106/68 (81) 97 Room Air 01/20/18 00:00 36.9 71 16 109/63 (78) 99 Room Air 01/20/18 00:00 Room Air 01/19/18 20:25 98 Room Air 01/19/18 19:51 36.3 83 18 124/72 (89) 98 Room Air Lab Results: Results Past 24 Hours Test 01/19/18 20:31 01/20/18 05:27 01/20/18 07:32 01/20/18 11:37 Range/Units Bedside Glucose 203 163 208 70-90 mg/dl White Blood Count 9.36 4.8-10.8 K/uL Red Blood Count 3.71 4.2-5.4 M/uL Hemoglobin 9.9 12.0-16.0 g/dL Hematocrit 30.5 37-47 % Mean Corpuscular Volume 82.2 80-100 fL Mean Corpuscular Hemoglobin 26.7 25-34 pg Mean Corpuscular Hemoglobin Concent 32.5 32-36 g/dl RDW Standard Deviation 46.7 36.4-46.3 fL RDW Coefficient of Variation 15.5 11.5-14.5 % Platelet Count 387 130-400 K/uL Mean Platelet Volume 10.5 7.4-10.4 fL Prothrombin Time 10.8 9.0-12.0 SECONDS Prothromb Time International Ratio 1.0 0.9-1.1 Activated Partial Thromboplast Time 54.5 21.0-31.0 SECONDS Partial Thromboplastin Ratio 2.1 Sodium Level 137 136-145 mmol/L Potassium Level 3.8 3.5-5.1 mmol/L Chloride Level 103 98-107 mmol/L Carbon Dioxide Level 26 21-32 mmol/L Anion Gap 7.0 3-11 mmol/L Blood Urea Nitrogen 9 7-18 mg/dl Creatinine 0.82 0.60-1.20 mg/dl Est Creatinine Clear Calc Drug Dose 81.2 ml/min Estimated GFR () 95.4 Estimated GFR (Non- 82.3 BUN/Creatinine Ratio 10.4 10-20 Random Glucose 144 70-99 mg/dl Calcium Level 8.7 8.5-10.1 mg/dl Magnesium Level 1.7 1.8-2.4 mg/dl Test 01/20/18 16:30 Range/Units Bedside Glucose 138 70-90 mg/dl
[2018-01-20] MEDS: ATORVASTATIN 40 MG TAB PO SCH (21:33)
[2018-01-21] VITALS (9 sets, daily range): BP systolic 98–120; BP diastolic 62–77; PULSE 62–85; TEMP 36.5–37.2; O2SAT 97–99
[2018-01-21] MEDS: HEPARIN 25,000 UNIT/500ML D5W 500 ML IV PRN ×2 (02:17→18:44)
[2018-01-21 05:48] LABS: BASO % 0.4 %; BASO ABS # 0.03 K/uL (0-0.2); EOS % 6.1 %; EOS ABS # 0.52 K/uL (0-0.5); HEMATOCRIT 29.5 % (37-47); HEMOGLOBIN 9.5 g/dL (12.0-16.0); IG# 0.02 K/uL (0.00-0.02); LYMPH % 33.8 %; LYMPH ABS # 2.89 K/uL (1.2-3.4); MEAN CELL VOLUME 82.6 fL (80-100); MEAN CORPUSCULAR HEMOGLOBIN 26.6 pg (25-34); MEAN CORPUSCULAR HGB CONC 32.2 g/dl (32-36); MEAN PLATELET VOLUME 10.9 fL (7.4-10.4); MONO % 6.6 %; MONO ABS # 0.56 K/uL (0.11-0.59); NEUT % 52.9 %; NEUT ABS # 4.52 K/uL (1.4-6.5); PLATELET COUNT 394 K/uL (130-400); RED CELL DISTRIBUTION WIDTH CV 15.5 % (11.5-14.5); RED CELL DISTRIBUTION WIDTH SD 46.6 fL (36.4-46.3); WHITE BLOOD COUNT 8.54 K/uL (4.8-10.8)
[2018-01-21] MEDS: ACETAMINOPHEN 325 MG TAB PO PRN ×3 (05:55→22:14)
[2018-01-21] MEDS: LEVOTHYROXINE 200 MCG TAB PO SCH (05:56)
[2018-01-21 06:22] LABS: PTT PATIENT 55.8 SECONDS (21.0-31.0)
[2018-01-21 06:55] LABS: CALCIUM 8.7 mg/dl (8.5-10.1); CREATININE 0.85 mg/dl (0.60-1.20); POTASSIUM 3.8 mmol/L (3.5-5.1)
[2018-01-21 06:58] LABS: TOTAL PROTEIN 6.6 gm/dl (6.4-8.2)
[2018-01-21] MEDS: METFORMIN HCL 500 MG TAB PO SCH ×2 (08:44→16:43)
[2018-01-21] MEDS: LISINOPRIL 10 MG TAB PO SCH (08:45)
[2018-01-21] MEDS: ASPIRIN 81 MG ECTAB PO SCH (08:45)
[2018-01-21] MEDS: MAGNESIUM OXIDE 400 MG TAB PO SCH (08:45)
[2018-01-21] MEDS: INSULIN ASPART 100 UNITS/ML 3 ML PEN SC SCH ×4 (08:51→20:31)
[2018-01-21] MEDS: INSULIN GLARGINE SOLOSTAR 100 UNITS/ML 3 ML PEN SC SCH ×2 (08:52→09:00)
--- NOTE | 2018-01-21 10:16 | Progress Note ---
Internal Med Progress Note Date of Service: Jan 21, 2018. Provider Documentation: Patient is Ambulatory, On IV Heparin, Denies pain, Denies worsening right upper extremity symptoms Have discussed with patient in regards to hospital course that the strategy to bridge patient with heparin to Coumadin will take possibly several more days of inpatient stay. Have offered patient alternative of outpatient Lovenox and Coumadin and outpatient monitoring and after explaining the risks and benefits of that strategy, patient prefers to remain in hospital for the inpatient IV heparin strategy OBJECTIVE: Physical Exam: General Appearance: no acute distress Head: normocephalic, Atraumatic Eyes: normal inspection, EOMI Neck: supple, Trachea midline Respiratory/Chest: Normal breath sounds, CTABL Cardiovascular: S1, S2, No murmur Abdomen/GI:Soft, Non tender, Bowel sounds present Extremities/Musculoskelatal:normal inspection, no edema Neurologic/Psych:AAOX3, grossly no focal neurological deficits, RUE mild numbness ASSESSMENT & PLAN: This is a patient with the following: 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 Likely Embolic source TTE:Aortic valve sclerosis mild, without significant aortic valvular stenosis, Intact interatrial septum. MRI Brain suggestive of numerous small acute infarcts within the left cerebral hemisphere and a small acute infarct within the posterior right parietal lobe. Head CTA: suggestive of possible free floating thrombus in the left carotid bulb Head CT on 01/17/18 and 01/19/18: No hemorrhage At this time the plan continues to be to have patient on IV heparin and bridge to coumadin. INR is subtherapeutic (INR is 1 today) continue aspirin. no plavix needed while on coumadin [place] and RPR negative appointment with neurology as outpatient in 2-[address] Lesa Ortega, or Lesa Padilla PAC schedule DM II Uncontrolled A1C:10.6 Continue ISS, lantus Continue metformin Pharmacy glycemic control HTN continue lisinopril Hypomagnesemia: replace and monitor Hyperlipidemia: continue statin Hypothyroidism: H/O Goiter S/P thyroidectomy TSH:normal continue levothyroxine Tobacco use Disorder: Counseled to quit smoking DVT Px: On IV heparin and Coumadin Code Status: Full Code Vital Signs: Date Time Temp Pulse Resp B/P (MAP) Pulse Ox O2 Delivery O2 Flow Rate FiO2 01/21/18 08:00 37.2 68 18 111/75 (87) 97 Room Air 01/21/18 04:00 Room Air 01/21/18 03:42 36.7 64 18 98/65 (76) 97 Room Air 01/21/18 00:00 Room Air 01/20/18 23:42 37.0 69 20 94/52 (66) 98 Room Air 01/20/18 20:00 Room Air 01/20/18 19:46 37.0 70 18 104/68 (80) 98 Room Air 01/20/18 16:00 Room Air 01/20/18 15:44 36.9 63 18 96/64 (75) 98 Room Air 01/20/18 12:00 Room Air 01/20/18 11:43 74 16 100/62 (75) 99 Room Air Lab Results: Results Past 24 Hours Test 01/20/18 11:37 01/20/18 16:30 01/20/18 20:34 01/21/18 05:22 Range/Units Bedside Glucose 208 138 143 70-90 mg/dl White Blood Count 8.54 4.8-10.8 K/uL Red Blood Count 3.57 4.2-5.4 M/uL Hemoglobin 9.5 12.0-16.0 g/dL Hematocrit 29.5 37-47 % Mean Corpuscular Volume 82.6 80-100 fL Mean Corpuscular Hemoglobin 26.6 25-34 pg Mean Corpuscular Hemoglobin Concent 32.2 32-36 g/dl Platelet Count 394 130-400 K/uL Mean Platelet Volume 10.9 7.4-10.4 fL Neutrophils (%) (Auto) 52.9 % Lymphocytes (%) (Auto) 33.8 % Monocytes (%) (Auto) 6.6 % Eosinophils (%) (Auto) 6.1 % Basophils (%) (Auto) 0.4 % Neutrophils # (Auto) 4.52 1.4-6.5 K/uL Lymphocytes # (Auto) 2.89 1.2-3.4 K/uL Monocytes # (Auto) 0.56 0.11-0.59 K/uL Eosinophils # (Auto) 0.52 0-0.5 K/uL Basophils # (Auto) 0.03 0-0.2 K/uL RDW Standard Deviation 46.6 36.4-46.3 fL RDW Coefficient of Variation 15.5 11.5-14.5 % Immature Granulocyte % (Auto) 0.2 % Immature Granulocyte # (Auto) 0.02 0.00-0.02 K/uL Prothrombin Time 10.7 9.0-12.0 SECONDS Prothromb Time International Ratio 1.0 0.9-1.1 Activated Partial Thromboplast Time 55.8 21.0-31.0 SECONDS Partial Thromboplastin Ratio 2.1 Sodium Level 136 136-145 mmol/L Potassium Level 3.8 3.5-5.1 mmol/L Chloride Level 105 98-107 mmol/L Carbon Dioxide Level 22 21-32 mmol/L Anion Gap 9.0 3-11 mmol/L Blood Urea Nitrogen 11 7-18 mg/dl Creatinine 0.85 0.60-1.20 mg/dl Est Creatinine Clear Calc Drug Dose 78.4 ml/min Estimated GFR () 91.3 Estimated GFR (Non- 78.8 BUN/Creatinine Ratio 12.8 10-20 Random Glucose 133 70-99 mg/dl Calcium Level 8.7 8.5-10.1 mg/dl Total Bilirubin 0.5 0.2-1 mg/dl Aspartate Amino Transf (AST/SGOT) 27 15-37 U/L Alanine Aminotransferase (ALT/SGPT) 40 12-78 U/L Alkaline Phosphatase 84 45-117 U/L Total Protein 6.6 6.4-8.2 gm/dl Albumin 3.0 3.4-5.0 gm/dl Globulin 3.6 2.5-4.0 gm/dl Albumin/Globulin Ratio 0.8 0.9-2 Test 01/21/18 07:36 Range/Units Bedside Glucose 150 70-90 mg/dl
--- NOTE | 2018-01-21 13:48 | Pharmacy Progress Note ---
Pharmacy Glycemic Short Note 2 Date of Service Jan 21, 2018. OUTPATIENT ANTIDIABETIC REGIMEN: * Glipizide 5mg PO BIDM * Metformin 1,000mg PO BIDM * A1c = 10.6% on 01/16/18 ASSESSMENT: * Ms Lambert is a 52 y/o F with a PMH of HTN, hypothyroidism, and poorly controlled type 2 diabetes (goal A1c is <7% based on age/comorbidities and elements of diabetes care scoring scale); she is admitted with HAM/RUE numbness - subsequently diagnosed with stroke. Yesterday the patient's blood sugars were [phone]. Fasting is 150 mg/dL. Patient remains on heparin infusion, * Patient is currently receiving an average of ~80 units of insulin per day (35 units of basal insulin; 45 units of prandial/correctional insulin). The patient' s fasting blood sugar improved by 10 points today. Continue current regimen but provide lower Lantus dose if patient continues to trend downwards aggressively. * For Novolog, the patient is receiving more meal-time insulin than basal. The patient's blood sugars appeared more appropriately controlled yesterday with tighter carbohydrate coverage and also without stacking at dinner. Lunch time blood sugar did spike again today. Consider 08/19 for breakfast only tomorrow. * Restarted metformin yesterday. PLAN FOR INPATIENT GLYCEMIC CONTROL: * metformin 1 gm PO BID * Basal insulin * Lantus 35 units SQ daily (give 30 units if fasting tomorrow is less than 120 mg/dL) . * Bolus insulin * NovoLog per scale ACHS or Q6hrs while NPO. * Goal Range: Low 110 mg/dL - High 140 mg/dL * Correction Factor: 15 mg/dL/unit * Nutritional / Prandial insulin per carb ratio of 1 unit per 4 grams CHO consumed OUTPATIENT RECOMMENDATIONS * Ms Lambert has an elevated HbA1C that requires the initiation of insulin. Per conversations with the electric blanket packer, recommend once daily Lantus injection. * Lantus 35-40 units once daily * d/c glipizide as combination with insulin can increase risk of hypoglycemia * continue metformin
[2018-01-21] MEDS ORDERED: WARFARIN SOD 6 MG TAB PO SCH (16:00)
[2018-01-21] MEDS ORDERED: KETOROLAC TROMETHAMINE 30 MG/ML VIAL IV STA (18:33)
[2018-01-21] MEDS: ATORVASTATIN 40 MG TAB PO SCH (20:26)
[2018-01-22] VITALS (11 sets, daily range): BP systolic 91–132; BP diastolic 56–80; PULSE 61–81; TEMP 36.4–36.7; O2SAT 95–99
[2018-01-22] MEDS ORDERED: NICOTINE 21 MG/24 HR TDSY TD PRN (01:45)
[2018-01-22] MEDS: LEVOTHYROXINE 200 MCG TAB PO SCH (06:14)
[2018-01-22] MEDS: HEPARIN 25,000 UNIT/500ML D5W 500 ML IV PRN ×2 (06:52→11:39)
[2018-01-22 07:20] LABS: HEMATOCRIT 31.4 % (37-47); HEMOGLOBIN 9.7 g/dL (12.0-16.0); MEAN CELL VOLUME 83.3 fL (80-100); MEAN CORPUSCULAR HEMOGLOBIN 25.7 pg (25-34); MEAN CORPUSCULAR HGB CONC 30.9 g/dl (32-36); MEAN PLATELET VOLUME 10.7 fL (7.4-10.4); PLATELET COUNT 411 K/uL (130-400); RED CELL DISTRIBUTION WIDTH CV 15.9 % (11.5-14.5); RED CELL DISTRIBUTION WIDTH SD 48.5 fL (36.4-46.3); WHITE BLOOD COUNT 8.71 K/uL (4.8-10.8)
[2018-01-22 07:37] LABS: INR 1.1 (0.9-1.1)
[2018-01-22] MEDS: LISINOPRIL 10 MG TAB PO SCH (08:41)
[2018-01-22] MEDS: ASPIRIN 81 MG ECTAB PO SCH (08:43)
[2018-01-22] MEDS: METFORMIN HCL 500 MG TAB PO SCH ×2 (08:43→16:50)
[2018-01-22] MEDS: INSULIN ASPART 100 UNITS/ML 3 ML PEN SC SCH ×4 (08:53→20:59)
[2018-01-22] MEDS: INSULIN GLARGINE SOLOSTAR 100 UNITS/ML 3 ML PEN SC SCH (08:54)
--- NOTE | 2018-01-22 13:36 | Progress Note ---
Internal Med Progress Note Date of Service: Jan 22, 2018. Provider Documentation: Yesterday, patient had left lower mandible, and middle upper jaw pain which may be due to dental problems. Pain resolved after stat dose of Toradol yesterday night Patient has scheduled outpatient dental follow up. Patient's INR is still subtherapeutic. 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 Likely Embolic source TTE:Aortic valve sclerosis mild, without significant aortic valvular stenosis, Intact interatrial septum. MRI Brain suggestive of numerous small acute infarcts within the left cerebral hemisphere and a small acute infarct within the posterior right parietal lobe. Head CTA: suggestive of possible free floating thrombus in the left carotid bulb Head CT on 01/17/18 and 01/19/18: No hemorrhage At this time the plan continues to be to have patient on IV heparin and bridge to coumadin. INR is subtherapeutic (INR is 1.1 today) Patient to received increased dose of coumadin tonight continue aspirin. no plavix needed while on coumadin Appointment with neurology as outpatient in 2-[address] Lesa Ortega, or Lesa Padilla PAC schedule Patient will likely need dental work to be done after discharge when Coumadin level is therapeutic DM II Uncontrolled A1C:10.6 Continue ISS, lantus Continue metformin Pharmacy glycemic control HTN continue lisinopril Hypomagnesemia: replace and monitor Hyperlipidemia: continue statin Hypothyroidism: H/O Goiter S/P thyroidectomy TSH:normal continue levothyroxine Tobacco use Disorder: Counseled to quit smoking DVT Px: On IV heparin and Coumadin Code Status: Full Code Disposition: awaiting for INR to be 2 before hospital discharge Vital Signs: Date Time Temp Pulse Resp B/P (MAP) Pulse Ox O2 Delivery O2 Flow Rate FiO2 01/22/18 11:26 36.4 70 18 106/69 (81) 97 01/22/18 08:00 97 Room Air 01/22/18 07:29 36.4 61 22 105/67 (80) 97 Room Air 01/22/18 04:42 36.7 62 20 91/56 (68) 95 Room Air 01/22/18 04:00 Room Air 01/22/18 01:36 36.7 65 20 110/76 (87) 97 Room Air 01/22/18 00:00 Room Air 01/21/18 23:02 36.8 62 19 100/62 (75) 98 Room Air 01/21/18 20:00 97 Room Air 01/21/18 19:27 36.5 70 18 112/75 (87) 99 Room Air 01/21/18 16:00 97 Room Air 01/21/18 14:54 37.0 77 18 100/63 (75) 99 Room Air Lab Results: Results Past 24 Hours Test 01/21/18 16:37 01/21/18 20:10 01/22/18 01:19 01/22/18 06:56 Range/Units Bedside Glucose 93 91 93 70-90 mg/dl White Blood Count 8.71 4.8-10.8 K/uL Red Blood Count 3.77 4.2-5.4 M/uL Hemoglobin 9.7 12.0-16.0 g/dL Hematocrit 31.4 37-47 % Mean Corpuscular Volume 83.3 80-100 fL Mean Corpuscular Hemoglobin 25.7 25-34 pg Mean Corpuscular Hemoglobin Concent 30.9 32-36 g/dl RDW Standard Deviation 48.5 36.4-46.3 fL RDW Coefficient of Variation 15.9 11.5-14.5 % Platelet Count 411 130-400 K/uL Mean Platelet Volume 10.7 7.4-10.4 fL Prothrombin Time 11.4 9.0-12.0 SECONDS Prothromb Time International Ratio 1.1 0.9-1.1 Activated Partial Thromboplast Time 57.0 21.0-31.0 SECONDS Partial Thromboplastin Ratio 2.2 Test 01/22/18 08:01 01/22/18 11:34 Range/Units Bedside Glucose 137 195 70-90 mg/dl
--- NOTE | 2018-01-22 14:00 | Pharmacy Progress Note ---
Pharmacy Glycemic Short Note 2 Date of Service Jan 22, 2018. OUTPATIENT ANTIDIABETIC REGIMEN: * Glipizide 5mg PO BIDM * Metformin 1,000mg PO BIDM * A1c = 10.6% on 01/16/18 ASSESSMENT: * Ms Lambert is a 52 y/o F with a PMH of HTN, hypothyroidism, and poorly controlled type 2 diabetes (goal A1c is <7% based on age/comorbidities and elements of diabetes care scoring scale); she is admitted with HAM/RUE numbness - subsequently diagnosed with stroke. Yesterday the patient's blood sugars were [phone]. Fasting is 137 mg/dL. Patient remains on heparin infusion, * Patient is currently receiving an average of ~80 units of insulin per day (35 units of basal insulin; 45 units of prandial/correctional insulin). The patient' s fasting blood sugar improved by 13 points today. Continue current regimen but provide lower Lantus dose if patient continues to trend downwards aggressively. * For Novolog, the patient is receiving more meal-time insulin than basal. The patient's blood sugars appeared more appropriately controlled yesterday; however , lunch time blood sugar did spike again today. As the patient's fasting blood sugar trends down and metformin continues to sensitize patient to insulin expect lunch blood sugar spike to decrease. Did loosen Novolog slightly today secondary to 90s seen at lunch and dinner. * Restarted metformin. PLAN FOR INPATIENT GLYCEMIC CONTROL: * metformin 1 gm PO BID * Basal insulin * Lantus 35 units SQ daily (give 28 units if fasting tomorrow is less than 120 mg/dL) . * Bolus insulin * NovoLog per scale ACHS or Q6hrs while NPO. * Goal Range: Low 110 mg/dL - High 140 mg/dL * Correction Factor: 20 mg/dL/unit * Nutritional / Prandial insulin per carb ratio of 1 unit per 5 grams CHO consumed OUTPATIENT RECOMMENDATIONS * Ms Lambert has an elevated HbA1C that requires the initiation of insulin. Per conversations with the clinical document improvement educator, recommend once daily Lantus injection. * Lantus 35-40 units once daily * d/c glipizide as combination with insulin can increase risk of hypoglycemia * continue metformin
[2018-01-22] MEDS: WARFARIN SOD 6 MG TAB PO SCH (16:49)
[2018-01-22] MEDS: ATORVASTATIN 40 MG TAB PO SCH (20:58)
[2018-01-23] MEDS: OXYCODONE/ACETAMINOPHEN 5-325 TAB PO PRN ×2 (02:58→13:25)
[2018-01-23] MEDS: HEPARIN 25,000 UNIT/500ML D5W 500 ML IV PRN (03:14)
[2018-01-23 04:37] VITALS: BP 103/68; PULSE 69; TEMP 37; O2SAT 99
[2018-01-23] MEDS: LEVOTHYROXINE 200 MCG TAB PO SCH (05:54)
[2018-01-23 06:34] LABS: PTT PATIENT 53.4 SECONDS (21.0-31.0)
[2018-01-23 07:10] VITALS: BP 93/51; PULSE 69; TEMP 36.8; O2SAT 97
[2018-01-23] MEDS: ASPIRIN 81 MG ECTAB PO SCH (08:05)
[2018-01-23] MEDS: LISINOPRIL 10 MG TAB PO SCH (08:05)
[2018-01-23] MEDS: METFORMIN HCL 500 MG TAB PO SCH (08:05)
[2018-01-23] MEDS: INSULIN GLARGINE SOLOSTAR 100 UNITS/ML 3 ML PEN SC SCH (08:08)
[2018-01-23] MEDS: INSULIN ASPART 100 UNITS/ML 3 ML PEN SC SCH ×2 (08:09→12:13)
[2018-01-23 09:14] LABS: INR 1.2 (0.9-1.1)
[2018-01-23 11:10] VITALS: BP 109/71; PULSE 78; TEMP 36.8; O2SAT 100
[2018-01-23] MEDS ORDERED: ENOXAPARIN 100 MG/1ML SYR SQ SCH (12:00)
--- NOTE | 2018-01-23 12:49 | Pharmacy Progress Note ---
Pharmacy Glycemic Short Note 2 Date of Service Jan 23, 2018. OUTPATIENT ANTIDIABETIC REGIMEN: * Glipizide 5mg PO BIDM * Metformin 1,000mg PO BIDM * A1c = 10.6% on 01/16/18 Test 01/22/18 16:34 01/22/18 20:45 01/23/18 07:31 01/23/18 11:41 Bedside Glucose 101 mg/dl (70-90) 73 mg/dl (70-90) 132 mg/dl (70-90) 129 mg/dl (70-90) ASSESSMENT: * Blood sugars looking good, borderline hypoglycemia last night, will reduce dose of Lantus to prevent hypoglycemia. * Patient also receiving a little too much carb coverage now that metformin has been restarted, loosen CR. * Heparin drip discontinued today. * Ms Lambert is a 52 y/o F with a PMH of HTN, hypothyroidism, and poorly controlled type 2 diabetes (goal A1c is <7% based on age/comorbidities and elements of diabetes care scoring scale); she is admitted with HAM/RUE numbness - subsequently diagnosed with stroke. PLAN FOR INPATIENT GLYCEMIC CONTROL: * metformin 1 gm PO BID * Basal insulin -decrease starting tomorrow morning * Lantus 32 units SQ daily (give 25 units if fasting tomorrow is less than 120 mg/dL) . * Bolus insulin * NovoLog per scale ACHS or Q6hrs while NPO. * Goal Range: Low 110 mg/dL - High 140 mg/dL * Correction Factor: 20 mg/dL/unit * LOOSEN: Nutritional / Prandial insulin per carb ratio of 1 unit per 7 grams CHO consumed OUTPATIENT RECOMMENDATIONS * Ms Lambert has an elevated HbA1C that requires the initiation of insulin. Per conversations with the asthma educator, recommend once daily Lantus injection. * Lantus 35 units once daily * d/c glipizide as combination with insulin can increase risk of hypoglycemia * continue metformin 1gram PO BID
[2018-01-23] MEDS ORDERED: LPT40 PO (13:26)
[2018-01-23] MEDS ORDERED: NICO21DI4 TD (13:26)
[2018-01-23] MEDS ORDERED: CMD5 OR (13:26)
[2018-01-23] MEDS ORDERED: ASPI-320 PO (13:26)
[2018-01-23] MEDS ORDERED: LVNIS100 SQ (13:26)
[2018-01-23] MEDS ORDERED: INSDGIPEN SC (13:28)
--- NOTE | 2018-01-23 13:45 | Progress Note ---
Internal Med Progress Note Date of Service: Jan 23, 2018. Provider Documentation: Patient's INR still not therapeutic. Plans have been made to discharge patient with Lovenox injections and oral coumadin with follow up outpatient. Patient agrees to the plan OBJECTIVE: Physical Exam: General Appearance: no acute distress Head: normocephalic, Atraumatic Eyes: normal inspection, EOMI Mouth: no oral lesions or gross welling Neck: supple, Trachea midline Respiratory/Chest: Normal breath sounds, CTABL Cardiovascular: S1, S2, No murmur Abdomen/GI:Soft, Non tender, Bowel sounds present Extremities/Musculoskelatal:normal inspection, no edema Neurologic/Psych:AAOX3 ASSESSMENT & PLAN: This is a patient with Left sided Headache and Right arm numbness and weakness started the morning of 01/15/18 Below is the summary of pertinent hospital imaging studies and thought to have strokes from embolic source despite no emboli findings on echocardiogram and no arrhythmia on telemetry the evaluations by neurology and cardiology service concludes that by anticoagulating patient, this strategy will prevent further strokes and symptoms: MRI Brain on suggestive of numerous small acute infarcts within the left cerebral hemisphere and a small acute infarct within the posterior right parietal lobe. 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 Head CTA: There is minimal atheromatous plaquing involving the proximal and mid portions of the right internal carotid artery causing less than 50% narrowing. There is a linear soft tissue attenuating eccentrically located filling defect noted within the left carotid bulb which is seen draped over the carotid bifurcation extending into the proximal portions of the left internal and external carotid arteries measuring up to 1.0 cm in length TTE: * Normal LV chamber size with mild concentric LVH. * Normal LV systolic function, EF 60-65%. * No segmental left ventricular wall motion abnormalities are noted. * Grade I diastolic dysfunction. * Aortic valve sclerosis mild, without significant aortic valvular stenosis. * Intact interatrial septum. Head CT on 01/17/18 and 01/19/18: No hemorrhage Patient's hospital treatments include being on IV heparin with coumadin to achieve target INR between 2 to 3. However despite several days of this therapy, patient's INR is only 1.2 by Patient Discharge instructions Plans have been made to have patient continue taking coumadin 7.5 mg daily and have INR rechecked while she is to take Lovenox injections subcutaneously as 90 mg every 12 hours until INR is 2 while on coumadin. Stop taking Lovenox when INR is 2 Patient is to take 81 mg aspirin daily, high dose atorvastatin for cardiovascular and neuro protection Patient can continue home dose lisinopril for cardiovascular health and blood pressure control Patient can continue to take home dose levothyroxine for history of hypothyroidism Patient is to continue taking metformin at home but to stop home medication of glipizide. Patient has received insulin in the hospital and should take Lantus 35 units once a day daily at home Patient advised to quit tobacco use and given prescription for nicotine patches Follow up appointments: 01/26/2018 11:00 AM Debora Albrecht [facility] [phone] 01/26/2018 6:15 PM [facility] 02/10/2018 8:40 AM Lesa Padilla PA-C Neurology [facility] Vital Signs: Date Time Temp Pulse Resp B/P (MAP) Pulse Ox O2 Delivery O2 Flow Rate FiO2 01/23/18 12:00 Room Air 01/23/18 11:10 36.8 78 18 109/71 (84) 100 Room Air 01/23/18 08:00 Room Air 01/23/18 07:10 36.8 69 16 93/51 (65) 97 01/23/18 04:37 37.0 69 18 103/68 (80) 99 Room Air 01/23/18 04:00 Room Air 01/23/18 00:00 Room Air 01/22/18 23:14 36.6 70 18 132/80 (97) 98 Room Air 01/22/18 20:00 97 Room Air 01/22/18 19:42 36.7 81 16 122/65 (84) 99 Room Air 01/22/18 16:00 97 Room Air 01/22/18 14:46 36.7 79 18 103/58 (73) 98 Room Air Lab Results: Results Past 24 Hours Test 01/22/18 16:34 01/22/18 20:45 01/23/18 05:51 01/23/18 07:31 Range/Units Bedside Glucose 101 73 132 70-90 mg/dl Prothrombin Time 12.6 9.0-12.0 SECONDS Prothromb Time International Ratio 1.2 0.9-1.1 Activated Partial Thromboplast Time 53.4 21.0-31.0 SECONDS Partial Thromboplastin Ratio 2.1 Test 01/23/18 11:41 Range/Units Bedside Glucose 129 70-90 mg/dl
[2018-01-23] MEDS: WARFARIN SOD 6 MG TAB PO SCH (13:50)
--- NOTE | 2018-01-23 14:01 | Discharge Instructions ---
Discharge Instructions Date of Service Jan 23, 2018. Admission Reason for Admission: Headache, Right Upper Extremity Numbness Discharge Discharge Diagnosis / Problem: headache, right upper extremity numbnesss, stroke, anticoagulation Discharge Goals Goal(s): Improve function, Improve disease control Activity Recommendations Activity Limitations: per Instructions/Follow-up section Shower/Bathe: no limitations . Instructions / Follow-Up Instructions / Follow-Up This is a patient with Left sided Headache and Right arm numbness and weakness started the morning of 01/15/18 Below is the summary of pertinent hospital imaging studies and thought to have strokes from embolic source despite no emboli findings on echocardiogram and no arrhythmia on telemetry the evaluations by neurology and cardiology service concludes that by anticoagulating patient, this strategy will prevent further strokes and symptoms: MRI Brain on suggestive of numerous small acute infarcts within the left cerebral hemisphere and a small acute infarct within the posterior right parietal lobe. 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 Head CTA: There is minimal atheromatous plaquing involving the proximal and mid portions of the right internal carotid artery causing less than 50% narrowing. There is a linear soft tissue attenuating eccentrically located filling defect noted within the left carotid bulb which is seen draped over the carotid bifurcation extending into the proximal portions of the left internal and external carotid arteries measuring up to 1.0 cm in length TTE: * Normal LV chamber size with mild concentric LVH. * Normal LV systolic function, EF 60-65%. * No segmental left ventricular wall motion abnormalities are noted. * Grade I diastolic dysfunction. * Aortic valve sclerosis mild, without significant aortic valvular stenosis. * Intact interatrial septum. Head CT on 01/17/18 and 01/19/18: No hemorrhage Patient's hospital treatments include being on IV heparin with coumadin to achieve target INR between 2 to 3. However despite several days of this therapy, patient's INR is only 1.2 by Patient Discharge instructions Plans have been made to have patient continue taking coumadin 7.5 mg daily and have INR rechecked while she is to take Lovenox injections subcutaneously as 90 mg every 12 hours until INR is 2 while on coumadin. Stop taking Lovenox when INR is 2 Patient is to take 81 mg aspirin daily, high dose atorvastatin for cardiovascular and neuro protection Patient can continue home dose lisinopril for cardiovascular health and blood pressure control Patient can continue to take home dose levothyroxine for history of hypothyroidism Patient is to continue taking metformin at home but to stop home medication of glipizide. Patient has received insulin in the hospital and should take Lantus 35 units once a day daily at home Patient advised to quit tobacco use and given prescription for nicotine patches Follow up appointments: 01/26/2018 11:00 AM Debora lAbrecht DO [facility] [id number] 01/26/2018 6:15 PM [facility] 02/10/2018 8:40 AM Lesa Padilla PA-C Neurology [facility] Risk Factors for Stroke: You can reduce your chances of stroke by working with your medical provider to adopt a healthy lifestyle. Some specific ways to lower your chance of stroke are: * If you are a smoker, now is the time to stop smoking cigarettes * If you are diabetic, improve the control of your blood sugars * Avoid excessive amounts of alcohol * Control high blood pressure * Lose weight if you are overweight * Be sure to lead an active lifestyle * Eat a healthy diet low in salt, cholesterol and fat You should know about other risk factors for stroke that you are unable to control. These include: * Age 55 years or older * Male gender * Certain racial groups: , or / * Family History of Stroke, Mini stroke or Heart Attack * Sickle Cell Disease Follow Up: It is important for you to keep your follow up appointments with your medical provider. Current Hospital Diet Patient's current hospital diet: Diabetes Type 2 Diet, AHA Diet (Heart Healthy) Discharge Diet Recommended Diet: AHA Diet (Heart Healthy), Diabetes Type 2 Diet Pending Studies Studies pending at discharge: no Laboratory Results 01/22/18 06:56 01/21/18 05:22 Test 01/16/18 06:40 01/16/18 07:30 01/16/18 19:15 01/17/18 06:16 Erythrocyte Sedimentation Rate 49 mm/hr (0-21) Estimated Average Glucose 258 mg/dl Hemoglobin A1c 10.6 % (4.5-5.6) Total Creatine Kinase 45 U/L (26-192) Creatine Kinase MB < 0.5 ng/ml (0.5-3.6) Creatine Kinase MB Ratio (0-3.0) Troponin I < 0.015 ng/ml (0-0.045) Thyroid Stimulating Hormone (TSH) 2.880 uIu/ml (0.300-4.500) Human Chorionic Gonadotropin, Qual NEG (NEG) Bedside Prothrombin Time INR 1.1 (0.9-1.1) Urine Color YELLOW Urine Appearance CLEAR (CLEAR) Urine pH 5.0 (4.5-7.5) Urine Specific [place] 1.043 (1.000-1.030) Urine Protein NEG (NEG) Urine Glucose (UA) 3+ (NEG) Urine Ketones TRACE (NEG) Urine Occult Blood NEG (NEG) Urine Nitrite NEG (NEG) Urine Bilirubin NEG (NEG) Urine Urobilinogen NEG (NEG) Urine Leukocyte Esterase NEG (NEG) Urine Opiates Screen POS (NEG) Urine Codeine Confirmation (GC/MS) NEGATIVE NG/ML (CUTOFF=50) Urine Morphine Confirm (GC/MS) 2320 NG/ML (CUTOFF=50) Urine Hydrocodone Confirm (GC/MS) NEGATIVE NG/ML (CUTOFF=50) Urine Norhydrocodone NEGATIVE NG/ML (CUTOFF=50) Urine Noroxycodone NEGATIVE NG/ML (CUTOFF=50) Urine Oxycodone Confirm (GC/MS) NEGATIVE NG/ML (CUTOFF=50) Urine Oxymorphone Confirm (GC/MS) NEGATIVE NG/ML (CUTOFF=50) Urine Methadone, Qualitative NEG (NEG) Urine Hydromorphone Confirm (GC/MS) NEGATIVE NG/ML (CUTOFF=50) Urine Barbiturates NEG (NEG) Urine Phencyclidine (PCP) Level NEG (NEG) Ur Amphetamine/Methamphetamine NEG (NEG) MDMA (Ecstasy) Screen NEG (NEG) Urine Benzodiazepines Screen NEG (NEG) Urine Cocaine Metabolite NEG (NEG) Urine Marijuana (THC) NEG (NEG) C-Reactive Protein 1.31 mg/dl (0-0.29) Triglycerides Level 247 mg/dl (0-150) Cholesterol Level 147 mg/dl (0-200) HDL Cholesterol 39 mg/dl LDL Cholesterol, Calculated 59 mg/dl VLDL Cholesterol, Calculated 49 mg/dl Cholesterol/HDL Ratio 3.8 Test 01/17/18 10:40 01/20/18 05:27 01/21/18 05:22 01/22/18 06:56 Anti-Nuclear Antibody Screen NEGATIVE (NEGATIVE) Rapid Plasma Reagin NONREACTIVE (NONREACT) Magnesium Level 1.7 mg/dl (1.8-2.4) Immature Granulocyte % (Auto) 0.2 % White Blood Count 8.54 K/uL (4.8-10.8) Red Blood Count 3.57 M/uL (4.2-5.4) 3.77 M/uL (4.2-5.4) Hemoglobin 9.5 g/dL (12.0-16.0) Hematocrit 29.5 % (37-47) Mean Corpuscular Volume 82.6 fL (80-100) 83.3 fL (80-100) Mean Corpuscular Hemoglobin 26.6 pg (25-34) 25.7 pg (25-34) Mean Corpuscular Hemoglobin Concent 32.2 g/dl (32-36) 30.9 g/dl (32-36) Platelet Count 394 K/uL (130-400) Mean Platelet Volume 10.9 fL (7.4-10.4) 10.7 fL (7.4-10.4) Neutrophils (%) (Auto) 52.9 % Lymphocytes (%) (Auto) 33.8 % Monocytes (%) (Auto) 6.6 % Eosinophils (%) (Auto) 6.1 % Basophils (%) (Auto) 0.4 % Neutrophils # (Auto) 4.52 K/uL (1.4-6.5) Lymphocytes # (Auto) 2.89 K/uL (1.2-3.4) Monocytes # (Auto) 0.56 K/uL (0.11-0.59) Eosinophils # (Auto) 0.52 K/uL (0-0.5) Basophils # (Auto) 0.03 K/uL (0-0.2) Immature Granulocyte # (Auto) 0.02 K/uL (0.00-0.02) Anion Gap 9.0 mmol/L (3-11) Est Creatinine Clear Calc Drug Dose 78.4 ml/min Estimated GFR () 91.3 Estimated GFR (Non- 78.8 BUN/Creatinine Ratio 12.8 (10-20) Calcium Level 8.7 mg/dl (8.5-10.1) Total Bilirubin 0.5 mg/dl (0.2-1) Aspartate Amino Transf (AST/SGOT) 27 U/L (15-37) Alanine Aminotransferase (ALT/SGPT) 40 U/L (12-78) Alkaline Phosphatase 84 U/L (45-117) Total Protein 6.6 gm/dl (6.4-8.2) Albumin 3.0 gm/dl (3.4-5.0) Globulin 3.6 gm/dl (2.5-4.0) Albumin/Globulin Ratio 0.8 (0.9-2) RDW Standard Deviation 48.5 fL (36.4-46.3) RDW Coefficient of Variation 15.9 % (11.5-14.5) Test 01/23/18 05:51 01/23/18 11:41 Prothrombin Time 12.6 SECONDS (9.0-12.0) Prothromb Time International Ratio 1.2 (0.9-1.1) Activated Partial Thromboplast Time 53.4 SECONDS (21.0-31.0) Partial Thromboplastin Ratio 2.1 Bedside Glucose 129 mg/dl (70-90) Hemoglobin A1c Test 01/16/18 06:40 Range/Units Estimated Average Glucose 258 mg/dl Hemoglobin A1c 10.6 H 4.5-5.6 % Lipid Panel Test 01/17/18 06:16 Range/Units Triglycerides Level 247 H 0-150 mg/dl Cholesterol Level 147 0-200 mg/dl HDL Cholesterol 39 mg/dl Cholesterol/HDL Ratio 3.8 LDL Cholesterol, Calculated 59 mg/dl Medical Emergencies . Who to Call and When: Medical Emergencies: Call 911 immediately if you experience any of the following warning signs and symptoms of Stroke: * Sudden numbness or weakness of the face, arm or leg, especially on one side of the body * Sudden confusion, trouble speaking or understanding * Sudden trouble seeing in one or both eyes * Sudden trouble walking, dizziness, loss of balance or coordination * Sudden severe headache with no cause Do not delay calling 911 if you experience any warning signs or symptoms of a stroke. Delay in seeking medical attention may affect what treatments can be given to you. . Non-Emergent Contact Non-Emergency issues call your: Primary Care Provider Call Non-Emergent contact if: you have any medication questions . . "Provider Documentation" section prepared by Dhaval Roberts. . Stroke Core Measures Reason no t-PA for Stroke: Treatment not indicated Reason no antithrom by day 2: Treatment not indicated Reason no antithrom at D/C: Treatment provided - N/A Reason no statin at D/C: Treatment provided - N/A Reason no anticoag w/a fib: Treatment provided - N/A
--- NOTE | 2018-01-23 14:02 | Discharge Summary ---
Discharge Summary Date of Service Jan 23, 2018. Discharge Summary Admission Date: Jan 16, 2018 at 09:53 Discharge Date: Jan 23, 2018 Discharge Disposition: Home Principal Diagnosis: headache, right upper extremity numbness, stroke: numerous small acute infarcts within the left cerebral hemisphere and a small acute infarct within the posterior right parietal lobe, thought have embolic cause of stroke, patient on anticoagulation, Diabetes Type 2 on insulin Consultations: neurology, cardiology Medication Reconciliation New Medications: Insulin Glargine (Lantus Solostar) 100 Unit/Ml Inj 35 UNITS SC DAILY for 30 Days, #11 ML Warfarin Sod (Coumadin) 5 Mg Tab 7.5 MG OR DAILY for 30 Days, #45 TAB Aspirin (Aspirin EC Low Dose) 81 Mg Ectab 81 MG PO QAM for 30 Days, #30 TAB Atorvastatin (Lipitor) 40 Mg Tab 80 MG PO HS for 30 Days, #30 TAB Enoxaparin (Enoxaparin Sodium) 100 Mg/Ml Inj 90 MG SQ Q12 for 3 Days, #6 UNITS Nicotine (Nicoderm Cq) 21 Mg/24 Hr Dis 1 PATCH TD DAILY PRN for tobacco cravings for 30 Days, #30 PATCH Continued Medications: Levothyroxine Sodium (Synthroid) 200 Mcg Tab 200 MCG PO DAILY, 5 Refills Lisinopril (Prinivil) 10 Mg Tab 10 MG PO DAILY, TAB Metformin Hcl (Glucophage) 1,000 Mg Tab 1 TAB PO BID for 30 Days, #60 TAB 5 Refills Discontinued Medications: Aspirin (Aspirin Ec) 81 Mg Tab 162 MG PO DAILY Atorvastatin (Lipitor) 10 Mg Tab 10 MG PO DAILY, TAB Glipizide (Glucotrol) 5 Mg Tab 1 TAB PO BID for 30 Days, #60 TAB 5 Refills Admission Information HPI (per Admitting provider): Pt is 52 y/o F with PMH CVA, HTN, uncontrolled DM II, HLD, hypothyroidism presented to ER with c/o Left sided HAM and R arm numbness and weakness started yesterday morning. HAM continuous. She tried Tylenol once yesterday without relief. Entire R arm feels numb and weak. Pt states that she just needs to keep her eyes closed because her eyes hurt, left more than right. She doesn't think she has any blurred vision, diplopia, vision loss. Denies any photophobia or phonophobia. Got some nausea after pain meds in ER and vomited once per pt, no other nausea or vomiting previous. Pt admits is non-compliant with her medications and doesn't take them regularly. She didn't take medications yet today. She is on Metformin for DM II, doesn't take regularly. She was Rx januvia , however pt states was not covered by her insurance, so she never started that. Pt was hospitalized 01/09/18 for PE, however was radiology over read and report was then negative for PE. Had influenza A. She was d/c on Tamiflu and guaifenesin with codeine. Pt states cough much improved. Not feeling achy or SOB any more. Denies neck pain. Denies hx migraines in past. Denies recent head injury. Denies eye redness, eye discharge or tearing, fever/chills, diaphoresis , dizziness, syncope, speech changes, facial drooping, CP, SOB, orthopnea, palpitations, sore throat, choking, otalgia, rhinorrhea, abdominal pain, extremity edema, rashes, urinary symptoms. Denies hx anxiety or depression. ER staff report notice pt moving R arm, and then when ask pt to move her R arm she reports that she cannot. Also report pt would not talk to them at times. In ER pt given morphine, zofran, toradol with little relief of HAM. Had CT scan in ER no acute changes, old R parietal/occipital infarct. Negative CXR. Hx CT Head out pt in 06/28/2015: Impression: several small cortical infarctions involving the right posterior frontal lobe and right parieto-occipital lobe. Findings are of indeterminate age ; some of these may be acute to subacute in age. No evidence for intracranial hemorrhage MRI 06/29/15: IMPRESSION: 1. No evidence of acute or subacute infarction. 2. No evidence of hydrocephalus. 3. Gyriform foci of increased FLAIR signal within the right parietal and occipital lobes. The appearance is nonspecific, but possibly secondary to a prior ischemic insult. If this is inconsistent with the patient's clinical history and symptoms, then one might consider a contrast enhanced MRI study to help exclude other potential etiologies for this finding. Physical Exam (per Admitting): General Appearance: WD/WN, no apparent distress Head: normocephalic, atraumatic, + pertinent finding (no temporal tenderness to palpation ) Eyes: normal inspection, PERRL, EOMI, sclerae normal, + pertinent finding ( no tearing or discharge) ENT: hearing grossly normal, pharynx normal, + pertinent finding (mucous membranes moist) Neck: supple, trachea midline Respiratory/Chest: lungs clear, normal breath sounds, no respiratory distress, no accessory muscle use Cardiovascular: regular rate, rhythm, no murmur, normal peripheral pulses Abdomen/GI: normal bowel sounds, non tender, soft Extremities/Musculoskelatal: normal capillary refill, no pedal edema, non- tender Neurologic/Psych: alert, oriented x 3, + pertinent finding (somewhat flat affect. Pt speaking in soft voice. Follows commands. Much prompting to get pt to do active ROM of R arm and is able abduct to 90 degrees, flexion and extension intact. L upper extremity with full active ROM. Right arm with decreased strength compared to L arm. 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 Reflexes intact. Bilateral lower extremities with equal strength. When pt stands reports legs feel weak bilaterally. Unsteady gait. Negative Romberg. Pt unable to perform finger to nose testing with R hand.) Skin: normal color, warm/dry Hospital Course This is a patient with Left sided Headache and Right arm numbness and weakness started the morning of 01/15/18 Below is the summary of pertinent hospital imaging studies and thought to have strokes from embolic source despite no emboli findings on echocardiogram and no arrhythmia on telemetry the evaluations by neurology and cardiology service concludes that by anticoagulating patient, this strategy will prevent further strokes and symptoms: MRI Brain on suggestive of numerous small acute infarcts within the left cerebral hemisphere and a small acute infarct within the posterior right parietal lobe. 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 Head CTA: There is minimal atheromatous plaquing involving the proximal and mid portions of the right internal carotid artery causing less than 50% narrowing. There is a linear soft tissue attenuating eccentrically located filling defect noted within the left carotid bulb which is seen draped over the carotid bifurcation extending into the proximal portions of the left internal and external carotid arteries measuring up to 1.0 cm in length TTE: * Normal LV chamber size with mild concentric LVH. * Normal LV systolic function, EF 60-65%. * No segmental left ventricular wall motion abnormalities are noted. * Grade I diastolic dysfunction. * Aortic valve sclerosis mild, without significant aortic valvular stenosis. * Intact interatrial septum. Head CT on 01/17/18 and 01/19/18: No hemorrhage Patient's hospital treatments include being on IV heparin with coumadin to achieve target INR between 2 to 3. However despite several days of this therapy, patient's INR is only 1.2 by Patient Discharge instructions Plans have been made to have patient continue taking coumadin 7.5 mg daily and have INR rechecked while she is to take Lovenox injections subcutaneously as 90 mg every 12 hours until INR is 2 while on coumadin. Stop taking Lovenox when INR is 2 Patient is to take 81 mg aspirin daily, high dose atorvastatin for cardiovascular and neuro protection Patient can continue home dose lisinopril for cardiovascular health and blood pressure control Patient can continue to take home dose levothyroxine for history of hypothyroidism Patient is to continue taking metformin at home but to stop home medication of glipizide. Patient has received insulin in the hospital and should take Lantus 35 units once a day daily at home Patient advised to quit tobacco use and given prescription for nicotine patches Follow up appointments: 01/26/2018 11:00 AM Debora Albrecht DO [facility] [id number] 01/26/2018 6:15 PM [facility] 02/10/2018 8:40 AM Lesa Padilla PA-C Neurology [facility] Total time spent on discharge = 60 minutes This includes examination of the patient, discharge planning, medication reconciliation, and communication with other providers. Discharge Instructions This is a patient with Left sided Headache and Right arm numbness and weakness started the morning of 01/15/18 Below is the summary of pertinent hospital imaging studies and thought to have strokes from embolic source despite no emboli findings on echocardiogram and no arrhythmia on telemetry the evaluations by neurology and cardiology service concludes that by anticoagulating patient, this strategy will prevent further strokes and symptoms: MRI Brain on suggestive of numerous small acute infarcts within the left cerebral hemisphere and a small acute infarct within the posterior right parietal lobe. 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 Head CTA: There is minimal atheromatous plaquing involving the proximal and mid portions of the right internal carotid artery causing less than 50% narrowing. There is a linear soft tissue attenuating eccentrically located filling defect noted within the left carotid bulb which is seen draped over the carotid bifurcation extending into the proximal portions of the left internal and external carotid arteries measuring up to 1.0 cm in length TTE: * Normal LV chamber size with mild concentric LVH. * Normal LV systolic function, EF 60-65%. * No segmental left ventricular wall motion abnormalities are noted. * Grade I diastolic dysfunction. * Aortic valve sclerosis mild, without significant aortic valvular stenosis. * Intact interatrial septum. Head CT on 01/17/18 and 01/19/18: No hemorrhage Patient's hospital treatments include being on IV heparin with coumadin to achieve target INR between 2 to 3. However despite several days of this therapy, patient's INR is only 1.2 by Patient Discharge instructions Plans have been made to have patient continue taking coumadin 7.5 mg daily and have INR rechecked while she is to take Lovenox injections subcutaneously as 90 mg every 12 hours until INR is 2 while on coumadin. Stop taking Lovenox when INR is 2 Patient is to take 81 mg aspirin daily, high dose atorvastatin for cardiovascular and neuro protection Patient can continue home dose lisinopril for cardiovascular health and blood pressure control Patient can continue to take home dose levothyroxine for history of hypothyroidism Patient is to continue taking metformin at home but to stop home medication of glipizide. Patient has received insulin in the hospital and should take Lantus 35 units once a day daily at home Patient advised to quit tobacco use and given prescription for nicotine patches Follow up appointments: 01/26/2018 11:00 AM Debora Albrecht DO [facility] [id number] 01/26/2018 6:15 PM [facility], [facility] 02/10/2018 8:40 AM Lesa Padilla PA-C Neurology [facility] Risk Factors for Stroke: You can reduce your chances of stroke by working with your medical provider to adopt a healthy lifestyle. Some specific ways to lower your chance of stroke are: If you are a smoker, now is the time to stop smoking cigarettes If you are diabetic, improve the control of your blood sugars Avoid excessive amounts of alcohol Control high blood pressure Lose weight if you are overweight Be sure to lead an active lifestyle Eat a healthy diet low in salt, cholesterol and fat You should know about other risk factors for stroke that you are unable to control. These include: Age 55 years or older Male gender Certain racial groups: , or / Family History of Stroke, Mini stroke or Heart Attack Sickle Cell Disease Follow Up: It is important for you to keep your follow up appointments with your medical provider.
[2018-01-23 14:05] VITALS: BP 109/71; PULSE 78; TEMP 36.8; O2SAT 100
== END 2018-01-23 14:22 | disposition home health service (06) | DRG 65 ==
LOC: EDBD 06:26 → C.EDB 06:28 → C.MED 09:53 → ENRESERV 10:32 → C.MED 01-18 12:28
PROVIDERS: ADMIT Internal Medicine; ATTEND Hospitalist
DX: I63.8 Other cerebral infarction (principal); E87.1 Hypo-osmolality and hyponatremia; G89.29 Other chronic pain; E11.9 Type 2 diabetes mellitus without complications; E78.5 Hyperlipidemia, unspecified; E83.42 Hypomagnesemia; E78.00 Pure hypercholesterolemia, unspecified; I10 Essential (primary) hypertension; R51 Headache; M54.2 Cervicalgia; E03.9 Hypothyroidism, unspecified; Z91.14 Patient's other noncompliance with medication regimen; Z79.82 Long term (current) use of aspirin; Z79.899 Other long term (current) drug therapy; Z79.84 Long term (current) use of oral hypoglycemic drugs; Z86.73 Personal history of transient ischemic attack (TIA), and cerebral infarction without residual deficits; Z83.3 Family history of diabetes mellitus; Z82.49 Family history of ischemic heart disease and other diseases of the circulatory system; Z82.0 Family history of epilepsy and other diseases of the nervous system

== ENCOUNTER → 2018-03-05 | Day surgery (SDC) | payer OTHER ==
[~2018-03-05] VITALS: Ht 162.6 cm; Wt 92.0 kg
[2018-03-05] VITALS (20 sets, daily range): BP systolic 80–150; BP diastolic 41–77; PULSE 70–112; TEMP 36.3; O2SAT 95–100; Ht 162.6 cm; Wt 92.0 kg
[~2018-03-05] MED LIST changes: +ASPI-320 PO; -ASPI81TA28 PO; +ATOR-24 PO; -ATOR10TA82 PO; +FENTANYL CITRATE INJ 50 MCG/1 ML 2 ML VIAL ONE; -GLIP5TAB3 PO; +GLYCOPYRROLATE INJ 0.2 MG/ML VIAL ONE; -GUAISYP5 PO; +INSDGIPEN SC; +LIDOCAINE HCL 2% 2 ML VIAL (20MG/ML) ONE; +METF1000 PO; +Methocarbamol PO; +PROPOFOL IV EMULSION 10 MG/ML 20 ML VIAL IV ONE; -SITA1TAB27 PO; -TMF75 PO; +TRMCR130WC; +VALA500T60 PO; +VNTHFA/IN INH
--- NOTE | 2018-03-05 06:58 | History & Physical Bridge Note ---
H&P Re-Evaluation Bridge Note: I have examined the patient, reviewed the History & Physical and in the interval since the performance of the History & Physical I have noted the following changes of clinical significance: Patient recently seen as an outpatient by Dr Bustamante of 03/01/18. DERREK ordered for further evaluation of cardiac source of emboslim. Has had unremarkable TTE last month as inpatient. No changes noted from outpt H and P.
--- NOTE | 2018-03-05 08:44 | Anesthesiology Progress Note ---
Anesthesia Post Op Note Date & Time Mar 05, 2018 at 08:44 Vital Signs Pain Intensity: 0 Vital Signs Past 12 Hours Date Time Temp Pulse Resp B/P (MAP) Pulse Ox O2 Delivery O2 Flow Rate FiO2 03/05/18 08:40 95 18 118/67 (84) 97 Room Air 03/05/18 08:30 101 18 99/59 (72) 97 Room Air 03/05/18 08:24 104 20 92/56 98 Nasal Cannula 2 03/05/18 08:22 105 20 87/53 97 Nasal Cannula 2 03/05/18 08:19 100 20 100/49 97 Nasal Cannula 4 03/05/18 08:15 110 20 100/56 96 Nasal Cannula 4 03/05/18 08:13 108 20 101/47 96 Nasal Cannula 4 03/05/18 08:12 112 20 93/48 96 Nasal Cannula 4 03/05/18 08:11 110 20 80/47 96 Nasal Cannula 4 03/05/18 08:09 107 20 100/62 96 Nasal Cannula 4 03/05/18 08:05 110 20 106/51 95 Nasal Cannula 4 03/05/18 08:03 111 20 125/61 95 Nasal Cannula 4 03/05/18 08:01 107 20 106/48 95 Nasal Cannula 4 03/05/18 07:56 93 16 84/58 96 Nasal Cannula 4 03/05/18 07:53 104 16 124/53 100 Nasal Cannula 4 03/05/18 07:50 84 16 97/41 96 Nasal Cannula 4 03/05/18 07:47 74 16 113/47 100 Nasal Cannula 4 03/05/18 07:45 95 16 135/54 98 Nasal Cannula 4 03/05/18 07:43 100 18 150/65 99 Nasal Cannula 4 03/05/18 07:40 70 18 143/77 100 Nasal Cannula 4 03/05/18 06:54 36.3 93 18 128/74 (92) 98 Room Air Notes Mental Status: alert / awake / arousable, participated in evaluation Pt Amnestic to Procedure: Yes Nausea / Vomiting: adequately controlled Pain: adequately controlled Airway Patency, RR, SpO2: stable & adequate BP & HR: stable & adequate Hydration State: stable & adequate Anesthetic Complications: no major complications apparent
--- NOTE | 2018-03-05 09:09 | Cardiology Procedure Brief Nt ---
Preliminary Cardiology Note Procedure Date Mar 05, 2018. Pre-Procedure Diagnosis r/o cardiac souce of embolism Post-Procedure Diagnosis No cardiac source of embilism identified Procedure(s) Performed DERREK Compressor Service Technician Evan Balbuena DO Mine Geologist(s) JOSÉ LUIS Avila Estimated Blood Loss none Preliminary Findings No cardiac source of cerebral embolism identified. Recommendations Continue current medications including coumadin. Specimens none Anesthesia Dr Cortez: Propofol 470mgIV,[id number],[id number],Robinal0.3mgIV Complication(s) None Disposition Patient to recovery in the post cardiac catheterization laboratory recovery area , then discharge to home
--- NOTE | 2018-03-05 09:12 | Discharge Instructions ---
Discharge Instructions Procedure Procedure Date: Mar 05, 2018. Reason for Visit: History of stroke, DERREK for cardiac source of embolism Discharge Discharge Date: Mar 05, 2018. Discharge Diagnosis: No cardiac source of embolism Last Recorded Wt (Kilograms): 92 Anesthesia Post Anesthesia Instructions: If you have had General Anesthesia or IV Sedation: * Do not drive today. * Resume driving when surgeon permits. * Do not make important decisions or sign legal documents today. * Call surgeon for: 1. Temperature elevations greater than 101 degrees F. 2. Uncontrollable pain. 3. Excessive bleeding. 4. Persistent nausea and vomiting. 5. Medication intolerance (nausea, vomiting or rash). * For nausea and vomiting use only clear liquids such as: tea, soda, bouillon until nausea subsides, then gradually increase diet as tolerated. * If you have any concerns or questions, call your surgeon's office. If physician is unavailable and it is an emergency, call 911 or go to the nearest emergency room. Instructions Activity Recommendations: limitations as noted below Recommended Home Diet: resume previous diet Allergies: Coded Allergies: No Known Allergies (Unverified , 01/16/18) Provider Instructions ACTIVITY RECOMMENDATIONS: Resume activities as tolerated with no limitations unless specified. _x_ No lifting over _10_ pounds for 24 hours. _x_ Do not engage in vigorous exercise, sexual activity, or sports for 24 hours. x__ Do not drive or operate any motorized equipment for 24 hours. _x_ You may return to work/school tomorrow. _x_ Nothing to eat or drink until gag reflex returns. _x_ No HOT or WARM liquids for _24_ hours. _x_ Avoid "scratchy" foods such as potato chips or pretzels for 24 hours following procedure. SPECIAL CARE: If you experience coughing up or vomiting of blood, contact ___Dr Balbuena ___ Follow Up Follow-up with: Keep follow up with the anticoagulation clinic as planned. Keep follow up visit with Dr Robby Delaney Recommendations: Call your doctor if: * Temperature above 101 degrees * Pain not relieved by pain medicine ordered * There is increased drainage or redness from any incision * You have any unanswered questions or concerns. Your Doctors Instructions noted above were prepared by provider Burt Balbuena. Patient Signature Section: Patient Instructions Signature Page Yolanda Labmert Patient (or Guardian) Signature/Date: I have read and understand the instructions given to me by my caregivers. Caregiver/RN/Doctor Signature/Date: The above-named patient and/or guardian has received patient instructions on this date. + Original Patient Signature Page (only) stays with chart. Please make copy for patient.
--- NOTE | 2018-03-05 17:45 | TEE ---
*NOTICE TO RECEIVING DEMOCRAT AGENCY This information is strictly Confidential and protected under [place] law. [place] law prohibits you from making any further disclosure of this information unless further disclosure is expressly permitted by the written consent of the person to whom it pertains or is authorized by law. A general authorization for the release of medical or other information is not sufficient for this purpose. Hospital accepts no responsibility if the information is made available to any other person, INCLUDING THE PATIENT. 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 * Study was performed for further evaluation of the patient's recent stroke to exclude a cardiac source of embolism. * There is no cardiac source of embolism identified. * Assessment for PFO was technically challenging due to elevated heart rates during the study. * Robinul was administered during the procedure for treatment of significant secretions. * There is suggestion of a trivial sized PFO by color-flow evaluation. * No interatrial shunt was demonstrated with the administration of agitated saline. * Refer to below for complete details of the study. Procedure Details * The transesophageal portion of this study was personally supervised by the undersigned interpreting physician. * DERREK Probe #1 utilized for procedure. * The study was performed in Cardiac Catheterization Lab. * Time out was conducted by the physician, nurse, and sterilisation technician with positive identification of patient and procedure. * Informed consent for Transesophageal Echocardiogram was obtained prior to the procedure. * An intravenous line was placed. A topical anesthetic agent was used for oropharangeal anesthesia. A bite block was inserted. * Sedation performed by the anesthesia department. * The patient's vital signs, including blood pressure, heart rate, pulse oximetry and cardiac rhythm were monitored throughout the procedure . * Robinul 0.3 mg administered for to reduce oral secretions. * Fentanyl 100 mcg was administered for procedural sedation. * A multifrequency, multiplane transesopheageal echocardiographic endoscope was inserted and manipulated in the standard fashion to achieve multiplane views. * The usual views were obtained; basal, mid-esophageal, transgastric and aortic views. * The patient tolerated the procedure well without evidence of orophangeal or esophageal trauma. * A 2D transesophageal echocardiogram with spectral and color flow Doppler was performed. * Contrast injection with agitated saline was performed. * 470 propofol used during the exam. Start time was 7:41AM, end time was 8:19am. * A 2D transesophageal echocardiogram was performed. * A 2D transesophageal echocardiogram with color flow Doppler was performed. * A 2D transesophageal echocardiogram with Doppler and color flow Doppler was performed. Left Ventricle * The left ventricle is normal in size. * There is mild concentric left ventricular hypertrophy. * Left ventricular systolic function is normal. * Ejection Fraction = 60-65%. * The left ventricular wall motion is normal. Right Ventricle * The right ventricle is normal in size and function. Atria * The left atrial size is normal. * No left atrial mass or thrombus visualized. * No thrombus is detected in the left atrial appendage. * Right atrial size is normal. * Assessment for PFO was technically challenging due to elevated heart rates during the study. Robinul had been administered for treatment of significant secretions. There is suggestion of a trivial sized PFO by color-flow evaluation. No interatrial shunt was demonstrated with the administration of agitated saline. Mitral Valve * The mitral valve anatomy is normal. * There is no mitral valve prolapse present. * There is no vegetation seen on the mitral valve. * There is mild chordal systolic anterior motion of the sub-mitral valve apparatus without evidence of resultant mitral regurgitation or LV outflow tract obstruction. * There is no mitral valve stenosis. * Significant mitral regurgitation is absent. Tricuspid Valve * The tricuspid valve is normal. * There is no tricuspid stenosis. * No tricuspid regurgitation. Aortic Valve * The aortic valve is trileaflet. * There is no aortic valvular vegetation. * No hemodynamically significant valvular aortic stenosis. * No aortic regurgitation is present. Pulmonic Valve * The pulmonic valve is not well seen, but is grossly normal. * Pulmonic stenosis is absent. * There is no significant pulmonary regurgitation. Great Vessels * The aortic root and proximal ascending aorta are normal sized. * There is no significant atheromatous disease in the visualized portion of the thoracic aorta. Pericardium * There is no pericardial effusion.
== END | disposition home or self-care (01) ==
LOC: C.CATH 06:36
PROVIDERS: ATTEND Internal Medicine Cardiovascular Disease
DX: Z86.73 Personal history of transient ischemic attack (TIA), and cerebral infarction without residual deficits (principal); I10 Essential (primary) hypertension; E11.9 Type 2 diabetes mellitus without complications; J45.909 Unspecified asthma, uncomplicated; E66.9 Obesity, unspecified; Z68.35 Body mass index [BMI] 35.0-35.9, adult; Z79.899 Other long term (current) drug therapy; Z79.82 Long term (current) use of aspirin; Z79.4 Long term (current) use of insulin; Z87.891 Personal history of nicotine dependence; Z90.89 Acquired absence of other organs